=== PATIENT | male | born 1940 | race Asian ===

== ENCOUNTER 2016-04-20 09:50 | Inpatient (IN) | payer MEDICAID ==
[~2016-04-20] VITALS: Ht 162.6 cm; Wt 70.0 kg
[2016-04-20 09:57] VITALS: Ht 162.6 cm; Wt 70.0 kg
[2016-04-20 10:57] LABS: ALBUMIN 3.6 g/dl (3.3-4.9); CHLORIDE 99 mmol/L (97-110)
[2016-04-20 10:58] LABS: POTASSIUM 3.9 mmol/L (3.5-5.1); SODIUM 139 mmol/L (135-144)
[2016-04-20 11:00] LABS: ALKALINE PHOSPHATASE 60 IU/L (42-121); ANION GAP 14 (8-16); ASPARTATE AMINO TRANSFERASE 17 IU/L (15-46); BLOOD UREA NITROGEN 20 mg/dl (7-20); CARBON DIOXIDE 30 mmol/L (21-31); CREATININE 0.54 mg/dl (0.61-1.24); TOTAL PROTEIN 6.6 g/dl (6.1-8.1)
[2016-04-20 11:01] LABS: ALANINE AMINOTRANSFERASE 25 IU/L (13-69); CALCIUM 8.1 mg/dl (8.4-10.2); GLUCOSE 132 mg/dl (70-220); INR 1.12; PARTIAL THROMBOPLASTIN TIME 21.3 Sec (25.0-35.0); PROTIME 14.4 Sec (12.2-14.2); PT RATIO 1.1
[2016-04-20 11:11] LABS: ACETAMINOPHEN < 10.0 ug/ml (10.0-30.0); ETHANOL < 10.0 mg/dl; SALICYLATE < 1.0 mg/dl (5.0-30.0)
[2016-04-20 11:16] LABS: TROPONIN-I < 0.012 ng/ml (0.00-0.12)
--- NOTE | 2016-04-20 11:19 | RADRPT ---
PROCEDURE: CT Brain without contrast. CLINICAL INDICATION: Headaches. Neurologic deficit TECHNIQUE: A CT of the brain was performed on multidetector high-resolution CT scanner utilizing a xial sections from the skull base through the vertex without contrast. One or more of the following dose reduction techniques were used: Automated exposure control, Adjustment of the mA and/or kV acc ording to patient size, and/or use of iterative reconstruction technique. DOSE: None provided COMPARISON: None available FINDINGS: Left frontal scalp swelling. No depressed skull fracture identified. No acute intracranial hemorrhag e, significant mass effect or midline shift. Patchy hypoattenuation of the cerebral white matter is age indeterminate but may represent mild subacute to chronic microvascular ischemic changes. Focal h ypoattenuation in the right lentiform nucleus and left caudate. Atherosclerotic calcifications of th e cavernous segments of the internal carotid arteries are seen. Prominence of the cortical sulci and ventricles are related to mild cerebral volume loss. Opacified right ethmoid air cell. IMPRESSION: Left frontal scalp swelling. No acute intracranial hemorrhage or significant mass effect. Mild subacute to chronic microvascular disease and intracranial atherosclerosis. Focal hypoattenuation in the right lentiform nucleus and left caudate may be due to old lacunar infa rcts. RPTAT: AA .Isaias Beach MD, Date Time Electronically viewed and signed by .Isaias Beach MD, on 04/20/2016 11:19 .T/
[2016-04-20 11:39] LABS: BASOPHILS % 0.1 % (0.0-2.0); EOSINOPHILS % 0.1 % (0.0-7.0); HEMATOCRIT 12.7 % (42.0-52.0); LYMPHOCYTES # 0.4 10^3/ul (0.8-2.9); LYMPHOCYTES % 42.4 % (15.0-51.0); MEAN CORPUSCULAR HEMOGLOBIN 38.6 pg (29.0-33.0); MEAN CORPUSCULAR HGB CONC 35.5 g/dl (32.0-37.0); MEAN CORPUSCULAR VOLUME 108.7 fl (82.0-101.0); MEAN PLATELET VOLUME 8.6 fl (7.4-10.4); MONOCYTES % 1.5 % (0.0-11.0); NEUTROPHIL # 0.5 10^3/ul (1.6-7.5); NEUTROPHILS % 55.9 % (39.0-77.0); NUCLEATED RED BLOOD CELLS% 7.8 /100WBC (0.0-0.0); RED BLOOD COUNT 1.17 10^6/ul (4.70-6.10); UNCORRECTED WBC 0.9 10^3/ul (4.8-10.8)
[2016-04-20 11:50] LABS: HEMOGLOBIN 4.5 g/dl (14.0-18.0); PLATELET COUNT 28 10^3/UL (140-440)
[2016-04-20 11:51] LABS: CONDITION 1; LH ANALYZER COMMENTS 1; NUCLEATED RED BLOOD CELLS # 0.1 10^3/ul (0.0-0.0); WHITE BLOOD COUNT 0.9 10^3/ul (4.8-10.8)
[2016-04-20] MEDS ORDERED: SOD CHLORIDE 0.9% 250 ML IV ONE (11:58)
[2016-04-20] MEDS ORDERED: ACETAMINOPHEN 325 MG TAB PO PRN (13:00)
[2016-04-20] MEDS ORDERED: ONDANSETRON 4 MG INJ IV PRN ×2 (13:00→15:30)
--- NOTE | 2016-04-20 13:04 | ERA ---
ER Documentation Chief Complaint Date/Time DATE: 04/20/16 TIME: 13:01 Chief Complaint weakness bib ra from hotel not eating much, pale HPI Patient is a 75-year-old male with no medical problems who presents with weakness. He was brought in by ambulance. He lives in a hotel. He feels " weak all over". The patient denies bleeding or black or bloody stools. He has no fevers. He has no pain. He does say "I want to ". He does not currently have a primary doctor. Upon review of old medical records this is the patient's first visit to the emergency department. ROS All systems reviewed and are negative except as per history of present illness. Medications Home Meds No Active Prescriptions or Reported Meds Allergies Allergies: Coded Allergies: No Known Allergy (Unverified , 04/20/16) PMhx/Soc Medical and Surgical Hx: pt denies Medical Hx, pt denies Surgical Hx Smoking Status: Never smoker FmHx Family History: No diabetes Physical Exam Vitals Vital Signs Date Time Temp Pulse Resp B/P Pulse Ox O2 Delivery O2 Flow Rate FiO2 04/20/16 12:12 65 19 133/89 99 Nasal Cannula 2.0 04/20/16 10:15 Nasal Cannula 2 04/20/16 09:57 97.6 68 18 132/97 98 Physical Exam Const: Pale Head: Atraumatic Eyes: Normal Conjunctiva ENT: Normal External Ears, Nose and Mouth. Neck: Full range of motion..~ No meningismus. Resp: Clear to auscultation bilaterally Cardio: Regular rate and rhythm, no murmurs Abd: Soft, non tender, non distended. Normal bowel sounds Skin: Pale with bruising the left forehead and bilateral knees Back: No midline or flank tenderness Ext: No cyanosis, or edema Neur: Awake and alert Psych: Normal Mood and Affect Result Diagram: 04/20/16 1110 04/20/16 1020 Results 24 hrs Laboratory Tests Test 04/20/16 10:20 04/20/16 11:10 Acetaminophen Level < 10.0ug/ml Activated Partial Thromboplast Time 21.3Sec Alanine Aminotransferase (ALT/SGPT) 25IU/L Albumin 3.6g/dl Albumin/Globulin Ratio 1.20 Alkaline Phosphatase 60IU/L Anion Gap 14 Aspartate Amino Transf (AST/SGOT) 17IU/L Blood Urea Nitrogen 20mg/dl Calcium Level 8.1mg/dl Carbon Dioxide Level 30mmol/L Chloride Level 99mmol/L Creatinine 0.54mg/dl Direct Bilirubin 0.00mg/dl Ethyl Alcohol Level < 10.0mg/dl Globulin 3.00g/dl Glucose Level 132mg/dl INR International Normalized Ratio 1.12 Indirect Bilirubin 4.0mg/dl Lipase 77U/L Potassium Level 3.9mmol/L Prothrombin Time 14.4Sec Prothrombin Time Ratio 1.1 Salicylates Level < 1.0mg/dl Sodium Level 139mmol/L Total Bilirubin 4.0mg/dl Total Protein 6.6g/dl Troponin I < 0.012ng/ml Basophils # 0.010^3/ul Basophils % 0.1% Blood Morphology Comment Eosinophils # 0.010^3/ul Eosinophils % 0.1% Hematocrit 12.7% Hemoglobin 4.5g/dl Lymphocytes # 0.410^3/ul Lymphocytes % 42.4% Mean Corpuscular Hemoglobin 38.6pg Mean Corpuscular Hemoglobin Concent 35.5g/dl Mean Corpuscular Volume 108.7fl Mean Platelet Volume 8.6fl Monocytes # 0.010^3/ul Monocytes % 1.5% Neutrophils # 0.510^3/ul Neutrophils % 55.9% Nucleated Red Blood Cells # 0.110^3/ul Nucleated Red Blood Cells % 7.8/100WBC Platelet Count 2810^3/UL Red Blood Count 1.1710^6/ul Red Cell Distribution Width 20.0% White Blood Count 0.910^3/ul Current Medications Medications (Trade) Dose Ordered Sig/Pattie Route PRN Reason Start Time Stop Time Status Last Admin Dose Admin Sodium Chloride (NS) 250 ml @ 0 mls/hr Q0M ONCE IV 04/20/16 11:58 04/20/16 12:14 DC 04/20/16 12:49 Ondansetron HCl (Zofran Inj) 4 mg BRIDGE ORDER PRN IV NAUSEA AND/OR VOMITING 04/20/16 13:00 04/21/16 12:59 Acetaminophen (Tylenol Tab) 650 mg ER BRIDGE PRN PO MILD PAIN/FEVER 04/20/16 13:00 04/21/16 12:59 Procedures/MDM EKG read by me: Rate/Rhythm: Regular rate and rhythm at a rate of 63 Intervals: Normal Impression: No evidence of ischemia or arrhythmia CT head negative for intracranial hemorrhage per radiology. Patient is a 75-year-old male with weakness who presents with pancytopenia. He was found to be acutely anemic with a hemoglobin of 4.5 and he does appear pale. He will be transfused 4 units of packed red blood cells. The patient will need admission to a medical surgical bed. I spoke with Dr. Aguayo from the panel team for admission as he does not have a primary doctor and is never been admitted before. The patient will need a one-to-one sitter as he is depressed and feeling suicidal. The patient will also need further workup for his pancytopenia. Critical Care: Time: 35 minutes excluding all billable procedures. Treatments/Evaluations: Close monitoring and treatment of unstable vital signs, cardiorespiratory, and neurologic status, while maintaining tight balance of fluid, respiratory, and cardiac interventions. Departure Diagnosis: Primary Impression: Pancytopenia Additional Impression: Acute weakness Condition: ULYSSES Zavala MD Apr 20, 2016 13:04
--- NOTE | 2016-04-20 15:16 | HP ---
Date/Time of Note Date/Time of Note DATE: 04/20/16 TIME: 15:07 Assessment/Plan VTE Prophylaxis VTE Prophylaxis Intervention: SCD's VTE Contraindication Reason: thrombocytopenia Assessment/Plan Assessment/Plan 75 yo M managed for 1. Severe Pancytopenia 2. Rectal wall thickening concerning for malignancy 3. Depression + Suicidal ideation : Plan: * admit * suicidal and neutropenic precautions * PRBC transfusions * GI /Psych / heme-onc consultation * Social service consult * supportive care Prophylaxis: PPI / SCDs HPI/ROS Admit Date/Time Admit Date/Time 04/20/15 Hx of Present Illness Patient is a 75-year-old male who was brought in by ambulance for weakness over the last 2 days. He was noted to be severely anemic in the emergency room and depressed. He states he wants to because he has no home or work. He denies pain or black stools or BRB per rectum. he has never been diagnosed with cancer and has never had a colonoscopy. ROS 12 point review if systems was done and pertinent findings are as noted. Constitutional: poor po, No febrile, No nausea Eyes: no complaints ENT: no complaints Respiratory: no complaints Gastrointestinal: passing stool, No diarrhea, No pain Musculoskeletal: no complaints Neurologic: No focal-weakness, No headache, No seizure PMH/Family/Social Past Medical History Medical History: hypertension Past Surgical History Past Surgical Hx: no surgical history Family History Significant Family History: no pertinent family hx Social History * alone here, the rest of his family live in [facility], has no job or source of income Alcohol Use: none Smoking Status: Never smoker Drug Use: none Exam/Review of Systems Vital Signs Vitals Vital Signs Date Time Temp Pulse Resp B/P Pulse Ox O2 Delivery O2 Flow Rate FiO2 04/20/16 13:45 98.4 80 18 135/55 98 Nasal Cannula 2.0 Exam Exam Constitutional: alert, oriented (x4), other (elderly male), No distress Psych: depressed affect Head: atraumatic, normocephalic Eyes: PERRL, icteric (+) ENMT: mucosa pink and moist Neck: non-tender Respiratory: clear to auscultation, diminished breath sounds Cardiovascular: regular rate and rhythm, No murmurs/extra sounds Gastrointestinal: bowel sounds, non-tender, soft Musculoskeletal: nl extremities to inspection Extremities: No edema Neurological: nl mental status, nl speech, No focal weakness Skin: other (jaundice?) Labs Result Diagram: 04/20/16 1110 04/20/16 1020 Procedures Procedures Laboratory Tests Test 04/20/16 10:20 04/20/16 11:10 Acetaminophen Level < 10.0ug/ml Activated Partial Thromboplast Time 21.3Sec Alanine Aminotransferase (ALT/SGPT) 25IU/L Albumin 3.6g/dl Albumin/Globulin Ratio 1.20 Alkaline Phosphatase 60IU/L Anion Gap 14 Aspartate Amino Transf (AST/SGOT) 17IU/L Blood Urea Nitrogen 20mg/dl Calcium Level 8.1mg/dl Carbon Dioxide Level 30mmol/L Chloride Level 99mmol/L Creatinine 0.54mg/dl Direct Bilirubin 0.00mg/dl Ethyl Alcohol Level < 10.0mg/dl Globulin 3.00g/dl Glucose Level 132mg/dl INR International Normalized Ratio 1.12 Indirect Bilirubin 4.0mg/dl Lipase 77U/L Potassium Level 3.9mmol/L Prothrombin Time 14.4Sec Prothrombin Time Ratio 1.1 Salicylates Level < 1.0mg/dl Sodium Level 139mmol/L Total Bilirubin 4.0mg/dl Total Protein 6.6g/dl Troponin I < 0.012ng/ml Basophils # 0.010^3/ul Basophils % 0.1% Blood Morphology Comment Eosinophils # 0.010^3/ul Eosinophils % 0.1% Hematocrit 12.7% Hemoglobin 4.5g/dl Lymphocytes # 0.410^3/ul Lymphocytes % 42.4% Mean Corpuscular Hemoglobin 38.6pg Mean Corpuscular Hemoglobin Concent 35.5g/dl Mean Corpuscular Volume 108.7fl Mean Platelet Volume 8.6fl Monocytes # 0.010^3/ul Monocytes % 1.5% Neutrophils # 0.510^3/ul Neutrophils % 55.9% Nucleated Red Blood Cells # 0.110^3/ul Nucleated Red Blood Cells % 7.8/100WBC Platelet Count 2810^3/UL Red Blood Count 1.1710^6/ul Red Cell Distribution Width 20.0% White Blood Count 0.910^3/ul Current Medications Medications (Trade) Dose Ordered Sig/Pattie Route PRN Reason Start Time Stop Time Status Last Admin Dose Admin Sodium Chloride (NS) 250 ml @ 0 mls/hr Q0M ONCE IV 04/20/16 11:58 04/20/16 12:14 DC 04/20/16 12:49 0 MLS/HR Ondansetron HCl (Zofran Inj) 4 mg BRIDGE ORDER PRN IV NAUSEA AND/OR VOMITING 04/20/16 13:00 04/21/16 12:59 Acetaminophen (Tylenol Tab) 650 mg ER BRIDGE PRN PO MILD PAIN/FEVER 04/20/16 13:00 04/21/16 12:59 PROCEDURE: CT Brain without contrast. CLINICAL INDICATION: Headaches. Neurologic deficit TECHNIQUE: A CT of the brain was performed on multidetector high-resolution CT scanner utilizing axial sections from the skull base through the vertex without contrast. One or more of the following dose reduction techniques were used: Automated exposure control, Adjustment of the mA and/or kV according to patient size, and/or use of iterative reconstruction technique. DOSE: None provided COMPARISON: None available FINDINGS: Left frontal scalp swelling. No depressed skull fracture identified. No acute intracranial hemorrhage, significant mass effect or midline shift. Patchy hypoattenuation of the cerebral white matter is age indeterminate but may represent mild subacute to chronic microvascular ischemic changes. Focal hypoattenuation in the right lentiform nucleus and left caudate. Atherosclerotic calcifications of the cavernous segments of the internal carotid arteries are seen. Prominence of the cortical sulci and ventricles are related to mild cerebral volume loss. Opacified right ethmoid air cell. IMPRESSION: Left frontal scalp swelling. No acute intracranial hemorrhage or significant mass effect. Mild subacute to chronic microvascular disease and intracranial atherosclerosis. Focal hypoattenuation in the right lentiform nucleus and left caudate may be due to old lacunar infarcts. RPTAT: AA .Isaias Beach MD, MD Date Time Electronically viewed and signed by .Isaias Beach MD, on 04/20/2016 11:19 .T/ CC: ULYSSES CUELLAR MD, BOLATITO M. Apr 20, 2016 15:16
[2016-04-20] MEDS ORDERED: FUROSEMIDE 20 MG INJ IV ONE (15:30)
[2016-04-20 16:05] LABS: IRON 197 ug/dl (35-150)
[2016-04-20 16:14] LABS: TOTAL IRON BINDING CAPACITY 208 ug/dl (241-421)
[2016-04-20] MEDS: SOD CHLORIDE 0.9% 1,000 ML IV SCH ×2 (16:18→20:05)
--- NOTE | 2016-04-20 16:27 | RADRPT ---
Echocardiogram Report Patient Name: CHRISTINA SEXTON Gender: Male Date: 1940 Study Date: 20-Apr-2016 Raveler: Marguerite Aguirre RDCS Location: [facility] Ref. Physician: WALE LORENZO Quality: Adequate Procedures: Transthoracic echocardiogram with complete 2D, M-Mode, and doppler examination. Indications: severe anemia. 2D/M Mode Doppler Measurement Value Normal Ranges Measurement Value Normal Ranges LVIDd 2D 6.0 3.5 - 5.6 cm AV Peak Rigoberto 1.4 m/sec LVIDs 2D 3.2 2.1 - 4.1 cm AV Peak PG 8.0 mmHg FS 2D 45.6 % AI Peak PG 72.0 mmHg LVPWd 2D 1.3 0.6 - 1.1 cm AI Peak Rigoberto 4.3 m/sec IVSd 2D 1.0 0.6 - 1.1 cm AI PHT 418.0 msec IVS/LVPW 2D 0.8 LVOT Peak Rigoberto 1.2 m/sec AoR Diam 2D 3.6 2.0 - 3.7 cm LVOT Peak PG 6.0 mmHg LA/Ao 2D 1 0 - 1 MV E Peak Rigoberto 0.7 m/sec EDV 2D 212.0 cm3 MV A Peak Rigoberto 0.9 m/sec ESV 2D 34.0 cm3 MV E/A 0.7 LA Dimen 2D 3.6 2.3 - 4.0 cm MV Decel Time 141 msec MV E/A 0.7 TR Peak Rigoberto 3.3 m/sec TR Peak PG 43.0 mmHg RVSP 46.0 mmHg Findings Left Ventricle: Normal left ventricular systolic function. Mild asymmetric septal hypertrophy. Mild enlargement of left ventricle cavity. Ejection fraction is visually estimated at 60 %. Tissue Doppler/Mitral Doppler indices are consistent with impaired relaxation (Stage I diastolic dysfunction). Right Ventricle: Normal right ventricular size. Normal right ventricular systolic function. Left Atrium: The left atrium is normal in size. Right Atrium: The right atrium is normal in size. Mitral Valve: Mitral valve leaflets appear mildly thickened. Mild mitral annular calcification. Mild mitral valve regurgitation. Aortic Valve: No hemodynamically significant aortic stenosis by doppler. Aortic cusps appear mildly calcified. Mild to moderate aortic valve regurgitation. Tricuspid Valve: Estimated peak PA systolic pressure 46 mmHg. Tricuspid valve appears mildly thickened. There is moderate tricuspid regurgitation. Pulmonic Valve: Pulmonic valve not well visualized. Pericardium: Small pericardial effusion. Aorta: Normal aortic root. IVC: Normal size and normal respiratory collapse consistent with normal right atrial pressure. Conclusions 1.Normal left ventricular systolic function. Mild asymmetric septal hypertrophy. Mild enlargement of left ventricle cavity. Ejection fraction is visually estimated at 60 %. Tissue Doppler/Mitral Doppler indices are consistent with impaired relaxation (Stage I diastolic dysfunction). 2.Mitral valve leaflets appear mildly thickened. Mild mitral annular calcification. Mild mitral valve regurgitation. 3.No hemodynamically significant aortic stenosis by doppler. Aortic cusps appear mildly calcified. Mild to moderate aortic valve regurgitation. 4.Estimated peak PA systolic pressure 46 mmHg. Tricuspid valve appears mildly thickened. There is moderate tricuspid regurgitation. 5.Small pericardial effusion. Electronically Signed By: Dani Degroot 20-Apr-2016 16:26:17 -0800 Patient Name: CHRISTINA SEXTON Study Date: 20-Apr-2016 [id number]
[2016-04-20 17:12] LABS: FOLATE 5.3 ng/ml (2.8-20.0)
[2016-04-20 19:06] VITALS: TEMP 98.1
--- NOTE | 2016-04-20 19:30 | RADRPT ---
PROCEDURE: CT Abdomen and Pelvis without contrast. CLINICAL INDICATION: Abdominal pain and anemia. TECHNIQUE: Multiple contiguous axial CT images of the abdomen and pelvis were obtained without the administration of intravenous contrast. Coronal and sagittal reconstructions were also performed. CTDIvol (mGy): 15.23; Total Exam DLP (mGy-cm): 881.64. One or more of the following dose reduction techniques were utilized: - Automated exposure control. - Adjustment of the mA and/or kV according to patient size. - Use of iterative reconstruction technique. COMPARISON: None. FINDINGS: Limited imaging of the lower thorax demonstrates scattered scarring versus atelectatic change. The heart is enlarged. Trace pericardial fluid is present. Hypoattenuation of the intravascular compart ments of the heart is observed and compatible with the patient's history of anemia. The liver and spleen are homogeneous in density. The gallbladder is contracted. Cholelithiasis is present. The pancreas and adrenal glands are unremarkable. The kidneys are symmetric in size. There is a punctate stone within the interpolar region of the rig ht kidney. There are no ureteral stones. There is no hydronephrosis or abnormal perinephric inflamm ation. The abdominal aorta is normal in caliber. Atherosclerotic calcification is present. There is no per iaortic / retroperitoneal lymphadenopathy. The stomach and small and large intestines are unremarkable. The appendix is normal. There are no focal inflammatory changes of the mesentery. There is no mesenteric lymphadenopathy. There is no a scites. The bladder, prostate and seminal vesicles are unremarkable. There is focal smooth concentric wall t hickening of the midportion of the rectum. Very mild infiltration of the perirectal soft tissues is observed. Nonspecific presacral edema is present. There is no free pelvic fluid. There is no pelv ic sidewall or inguinal lymphadenopathy. Degenerative changes of the spine are present. Body wall soft tissues are unremarkable. IMPRESSION: Focal concentric wall thickening of the midportion of the rectum with very mild perirectal infiltrat ion and nonspecific presacral edema. Colonoscopy versus close interval imaging follow-up is recommen ded to exclude neoplasm. Cardiomegaly and trace pericardial fluid. Cholelithiasis. Nonobstructing right nephrolithiasis. RPTAT: HLST .Carol Silveira MD, MD Date Time Electronically viewed and signed by .Carol Silveira MD, MD on 04/20/2016 19:30 .T/
[2016-04-20 20:30] VITALS: BP 144/65; PULSE 60; RESP 16
[2016-04-20] MEDS: DOCUSATE SODIUM 100 MG CAP PO SCH (22:14)
[2016-04-20 23:25] LABS: CREATINE KINASE 30 IU/L (23-200)
[2016-04-20 23:36] LABS: CK-MB 0.39 ng/ml (0.0-2.4)
[2016-04-20 23:38] LABS: TROPONIN-I < 0.012 ng/ml (0.00-0.12)
[2016-04-21] VITALS (13 sets, daily range): BP systolic 125–161; BP diastolic 60–74; PULSE 54–58; RESP 16–18
[2016-04-21] MEDS: PANTOPRAZOLE 40 MG INJ IV SCH (05:45)
[2016-04-21] MEDS: SOD CHLORIDE 0.9% 1,000 ML IV SCH (08:10)
[2016-04-21 10:20] LABS: RED BLOOD COUNT 2.13 10^6/ul (4.70-6.10); WHITE BLOOD COUNT 0.7 10^3/ul (4.8-10.8)
[2016-04-21 10:23] LABS: HEMOGLOBIN 6.6 g/dl (14.0-18.0); MEAN CORPUSCULAR VOLUME 93.9 fl (82.0-101.0); PLATELET COUNT 34 10^3/UL (140-440); POTASSIUM 3.3 mmol/L (3.5-5.1); RED CELL DISTRIBUTION WIDTH 20.5 % (11.5-14.5)
[2016-04-21 10:24] LABS: MEAN PLATELET VOLUME 11.7 fl (7.4-10.4)
[2016-04-21 10:25] LABS: ALBUMIN/GLOBULIN RATIO 1.3; BILIRUBIN,INDIRECT 4.2 mg/dl (0-1.1); BILIRUBIN,TOTAL 4.2 mg/dl (0.2-1.3); CREATININE 0.52 mg/dl (0.61-1.24); TOTAL PROTEIN 5.3 g/dl (6.1-8.1)
[2016-04-21 10:26] LABS: CHOL/HDL RATIO 3.9 RATIO
[2016-04-21 10:58] LABS: CK-MB 0.34 ng/ml (0.0-2.4); TROPONIN-I < 0.010 ng/ml (0.00-0.12)
[2016-04-21 10:59] LABS: CREATINE KINASE 22 IU/L (23-200)
--- NOTE | 2016-04-21 11:10 | PN ---
Date/Time of Note Date/Time of Note DATE: 04/21/16 TIME: 11:07 Assessment/Plan VTE Prophylaxis VTE Prophylaxis Intervention: SCD's Lines/Catheters IV Catheter Type (from [facility]): Peripheral IV Urinary Cath still in place: No Assessment/Plan Assessment/Plan 1. Pancytopenia with severe anemia likely complicated by chronic GI bleed 2. Rectal wall thickening concerning for maliganancy 3. Suicidal ideation 4. Hypertension: suboptimal control 5. Low HDL PLan: 2 more units of packed red cell Oncology / GI consults Clear liquid diet in case he needs colonoscopy Psych eval Continue precautions Supportive care PROPHYLAXIS: SCDs / PPI IV Subjective 24 Hr Interval Summary Free Text/Dictation * still feels weak * states he wanted to because of his social issues * denies black stools Exam/Review of Systems Vital Signs Vitals Vital Signs Date Time Temp Pulse Resp B/P Pulse Ox O2 Delivery O2 Flow Rate FiO2 04/21/16 07:28 98.9 57 18 151/66 97 04/20/16 20:30 Room Air 04/20/16 13:45 2.0 Intake and Output 04/20/16 04/20/16 04/21/16 14:59 22:59 06:59 Intake Total 350 ml 650 ml 981 ml Output Total 220 ml 1300 ml 100 ml Balance 130 ml -650 ml 881 ml Exam Constitutional: alert, oriented (x4), other (elderly male), No distress Psych: depressed affect Head: atraumatic, normocephalic Eyes: PERRL, icteric (+) ENMT: mucosa pink and moist Neck: non-tender Respiratory: clear to auscultation, diminished breath sounds Cardiovascular: regular rate and rhythm, No murmurs/extra sounds Gastrointestinal: bowel sounds, non-tender, soft Musculoskeletal: nl extremities to inspection Extremities: No edema Neurological: nl mental status, nl speech, No focal weakness Skin: other (jaundice?) Results Result Diagram: 04/21/1614 04/21/16 0914 Results 24 hrs Laboratory Tests Test 04/20/16 11:10 04/20/16 23:10 04/21/16 09:14 Basophils # 0.0 Basophils % 0.1 Blood Morphology Comment Eosinophils # 0.0 Eosinophils % 0.1 Hematocrit 12.7 L 20.0 #L Hemoglobin 4.5 *L 6.6 #*L Lymphocytes # 0.4 L Lymphocytes % 42.4 Mean Corpuscular Hemoglobin 38.6 H 31.0 Mean Corpuscular Hemoglobin Concent 35.5 33.0 Mean Corpuscular Volume 108.7 H 93.9 Mean Platelet Volume 8.6 11.7 #H Monocytes # 0.0 L Monocytes % 1.5 Neutrophils # 0.5 L Neutrophils % 55.9 Nucleated Red Blood Cells # 0.1 H Nucleated Red Blood Cells % 7.8 H Platelet Count 28 *L 34 #L Red Blood Count 1.17 L 2.13 #L Red Cell Distribution Width 20.0 H 20.5 H White Blood Count 0.9 L 0.7 #L Creatine Kinase 30 22 L Creatine Kinase Index 1.3 1.5 Creatinine Kinase MB (Mass) 0.39 0.34 Troponin I < 0.012 < 0.010 Alanine Aminotransferase (ALT/SGPT) 17 Albumin 3.0 L Albumin/Globulin Ratio 1.30 Alkaline Phosphatase 47 Anion Gap 11 Aspartate Amino Transf (AST/SGOT) 14 L Blood Urea Nitrogen 16 Calcium Level 8.0 L Carbon Dioxide Level 30 Chloride Level 99 Cholesterol Level 98 L Cholesterol/HDL Ratio 3.9 Creatinine 0.52 L Differential Comment MANUAL DIFF Direct Bilirubin 0.00 Globulin 2.30 Glucose Level 117 HDL Cholesterol 25 L Indirect Bilirubin 4.2 H LDL Cholesterol, Calculated 63 Magnesium Level 2.0 Potassium Level 3.3 L Sodium Level 137 Thyroid Stimulating Hormone (TSH) Pending Total Bilirubin 4.2 H Total Protein 5.3 #L Triglycerides Level 48 Medications Medications Current Medications Docusate Sodium (Colace) 100 mg BID PO Last administered on 04/20/16 22:14; Admin Dose 100 MG; Start 04/20/16 at 21:00 Pantoprazole (Protonix Iv) 40 mg DAILY@06 IV Last administered on 04/21/16 05: 45; Admin Dose 40 MG; Start 04/21/16 at 06:00 Ondansetron HCl 4 mg 4 mg Q6H PRN IV NAUSEA AND/OR VOMITING; Start 04/20/16 at 15:30 Sodium Chloride (NS) 1,000 ml @ 60 mls/hr [id number] IV Last administered on 04/20 20:05; Admin Dose 60 MLS/HR; Start 04/20/16 at 15:30 Influenza Virus Vaccine 0.5 ml 0.5 ml ONCE ONCE IM* ; Start 04/22/16 at 09:00; Stop 04/22/16 at 09:01 Potassium Chloride (KCl 40 MEQ/250 ML NS) 250 ml @ 62.5 mls/hr ONCE ONCE IVPB ; Start 04/21/16 at 11:30; Stop 04/21/16 at 15:29 WALE LORENZO Apr 21, 2016 11:09
[2016-04-21] MEDS: HYDROCHLOROTHIAZIDE 25 MG TAB PO SCH (11:30)
[2016-04-21] MEDS ORDERED: POTASSIUM CHLORIDE 250 ML IVPB ONE ×2 (11:30)
--- NOTE | 2016-04-21 11:54 | CONS ---
Date/Time of Note Date/Time of Note DATE: 04/21/16 TIME: 11:44 Assessment/Plan Assessment/Plan Chief Complaint/Hosp Course SEVERE PANCYTOPENIA WITH NEUTROPENIA, MACROCYTIC ANEMIA- REQUIRING PRBC TRANSFUSION THROMBOCYTOPENIA WITHOUT EVIDENCE OF BLEEDING ASSOCIATED WITH INCREASED INDIRECT BILI, SUGGESTING INTRAVASCULAR HEMOLYSIS PLAN: PROCEED WITH PANCYTOPENIA W-UP REVIEW SMEAR HEMOLYSIS W-UP CT ABD BMBX MONITOR BLOOD COUNT CLOSELY OBSERVE FOR BLEEDING AND HEMOLYSIS TRANSFUSE IF HB FABIO THAN 8 Problems: Consultation Date/Type/Reason Admit Date/Time 04/20/15 Date of Consultation: Apr 21, 2016 Type of Consultation: hemeonc Reason for Consultation pancytopenia Referring Provider: WALE LORENZO Hx of Present Illness Patient is a 75-year-old male with no medical problems who presents with weakness. He was brought in by ambulance. He lives in a hotel. He feels " weak all over". The patient denies bleeding or black or bloody stools. He has no fevers. He has no pain. He does say "I want to ". He does not currently have a primary doctor. Upon review of old medical records this is the patient's first visit to the emergency department. he was noted to have severe pancytopenia with neutropenia and severe eanemia pt has been transfused with PRBC his medical w-up and treatment are in progress i was asked to provide hemeonc con javier ROS All systems reviewed and are negative except as per history of present illness. Medications Home Meds No Active Prescriptions or Reported Meds Allergies Allergies: Coded Allergies: No Known Allergy (Unverified , 04/20/16) PMhx/Soc Medical and Surgical Hx: pt denies Medical Hx, pt denies Surgical Hx Smoking Status: Never smoker FmHx Family History: No diabetes Social History Smoking Status: Never smoker Exam/Review of Systems Vital Signs Vitals Vital Signs Date Time Temp Pulse Resp B/P Pulse Ox O2 Delivery O2 Flow Rate FiO2 04/21/16 07:28 98.9 57 18 151/66 97 04/20/16 20:30 Room Air 04/20/16 13:45 2.0 Intake and Output 04/20/16 04/20/16 04/21/16 15:00 23:00 07:00 Intake Total 350 ml 650 ml 981 ml Output Total 220 ml 1300 ml 100 ml Balance 130 ml -650 ml 881 ml Exam Const: Pale Head: Atraumatic Eyes: Normal Conjunctiva ENT: Normal External Ears, Nose and Mouth. Neck: Full range of motion..~ No meningismus. Resp: Clear to auscultation bilaterally Cardio: Regular rate and rhythm, no murmurs Abd: Soft, non tender, non distended. Normal bowel sounds Skin: Pale with bruising the left forehead and bilateral knees Back: No midline or flank tenderness Ext: No cyanosis, or edema Neur: Awake and alert Psych: Normal Mood and Affect Results Result Diagram: 04/21/1691304/21/16913 Results 24 hrs Laboratory Tests Test 04/20/16 23:10 04/21/16 09:14 Creatine Kinase 30 22 L Creatine Kinase Index 1.3 1.5 Creatinine Kinase MB (Mass) 0.39 0.34 Troponin I < 0.012 < 0.010 Alanine Aminotransferase (ALT/SGPT) 17 Albumin 3.0 L Albumin/Globulin Ratio 1.30 Alkaline Phosphatase 47 Anion Gap 11 Aspartate Amino Transf (AST/SGOT) 14 L Blood Urea Nitrogen 16 Calcium Level 8.0 L Carbon Dioxide Level 30 Chloride Level 99 Cholesterol Level 98 L Cholesterol/HDL Ratio 3.9 Creatinine 0.52 L Differential Comment MANUAL DIFF Direct Bilirubin 0.00 Globulin 2.30 Glucose Level 117 HDL Cholesterol 25 L Hematocrit 20.0 #L Hemoglobin 6.6 #*L Hemoglobin A1c 7.6 H Indirect Bilirubin 4.2 H LDL Cholesterol, Calculated 63 Magnesium Level 2.0 Mean Corpuscular Hemoglobin 31.0 Mean Corpuscular Hemoglobin Concent 33.0 Mean Corpuscular Volume 93.9 Mean Platelet Volume 11.7 #H Platelet Count 34 #L Potassium Level 3.3 L Red Blood Count 2.13 #L Red Cell Distribution Width 20.5 H Sodium Level 137 Thyroid Stimulating Hormone (TSH) Pending Total Bilirubin 4.2 H Total Protein 5.3 #L Triglycerides Level 48 White Blood Count 0.7 #L Medications Medications Current Medications Docusate Sodium (Colace) 100 mg BID PO Last administered on 04/20/16 22:14; Admin Dose 100 MG; Start 04/20/16 at 21:00 Pantoprazole (Protonix Iv) 40 mg DAILY@06 IV Last administered on 04/21/16 05: 45; Admin Dose 40 MG; Start 04/21/16 at 06:00 Ondansetron HCl 4 mg 4 mg Q6H PRN IV NAUSEA AND/OR VOMITING; Start 04/20/16 at 15:30 Sodium Chloride (NS) 1,000 ml @ 60 mls/hr [id number] IV Last administered on 04/20t 20:05; Admin Dose 60 MLS/HR; Start 04/20/16 at 15:30 Influenza Virus Vaccine (Fluzone) 0.5 ml ONCE ONCE IM* ; Start 04/22/16 at 09:00 ; Stop 04/22/16 at 09:01 Hydrochlorothiazide 25 mg 25 mg DAILY PO ; Start 04/21/16 at 11:30 Potassium Chloride (KCl 40 MEQ/250 ML NS) 250 ml @ 62.5 mls/hr ONCE ONCE IVPB ; Start 04/21/16 at 11:30; Stop 04/21/16 at 15:29 THERESA KEYES MD Apr 21, 2016 11:54
[2016-04-21 11:56] LABS: LYMPHOCYTES # 0.4 10^3/ul (0.8-2.9); NEUTROPHIL # 0.3 10^3/ul (1.6-7.5)
[2016-04-21] MEDS ORDERED: BARIUM SULF 2% 450 ML BTL (BERRY SMOOTHIE) PO ONE (12:00)
[2016-04-21] MEDS ORDERED: IODIXANOL LOCM 100 ML BTL ONE (13:16)
[2016-04-21] MEDS ORDERED: SOD CHLORIDE 0.9% 100 ML ONE (13:16)
--- NOTE | 2016-04-21 13:18 | CONS ---
Date/Time of Note Date/Time of Note DATE: 04/21/16 TIME: 13:07 Assessment/Plan Assessment/Plan Additional Assessment/Plan Acute anemia * CT abdomen 04-20-16: Focal concentric wall thickening of the midportion of the rectum with very mild perirectal infiltration and nonspecific presacral edema. Colonoscopy versus close interval imaging follow-up is recommended to exclude neoplasm. * Stool OB 1 * Colonoscopy tomorrow * Monitor hemoglobin every 8 hours, transfuse 2 units for hemoglobin less then 7.5 Pancytopenia * HemeOnc following * Maintain neutropenic precautions Suicidal ideation * Sitter in room * Mental health evaluation in process Further recommendations depend on clinical course Consultation Date/Type/Reason Admit Date/Time 04/20/15 Type of Consultation: Gastroenterology Reason for Consultation Acute anemia Hx of Present Illness 75-year-old male presented to ED yesterday with complaints of generalized weakness. At bedside patient denies nausea, vomiting, abdominal pain, hematemesis, hematochezia, fever, chills, chest pain, and shortness of breath. Patient also denies previous episode and past medical history. Patient denies any medications prescribed or [id number]. Patient states that he has been feeling weak for the last few days and decided to come into the hospital. Per previous note in ED, patient voiced suicidal ideation. At bedside patient denies plan for suicide. Advised patient colonoscopy recommended secondary to findings on CT exam. CT states: Focal concentric wall thickening of the midportion of the rectum with very mild perirectal infiltration and nonspecific presacral edema. Colonoscopy versus close interval imaging follow-up is recommended to exclude neoplasm. Advised patient of risks/benefits/ alternatives to procedure and he is agreeable to proceed. Past Medical History Medical History: no pertinent history Past Surgical History Past Surgical Hx: no surgical history Social History Alcohol Use: none Smoking Status: Never smoker Exam/Review of Systems Vital Signs Vitals Vital Signs Date Time Temp Pulse Resp B/P Pulse Ox O2 Delivery O2 Flow Rate FiO2 04/21/16 12:31 98.6 51 18 135/66 98 04/20/16 20:30 Room Air 04/20/16 13:45 2.0 Intake and Output 04/20/16 04/20/16 04/21/16 15:00 23:00 07:00 Intake Total 350 ml 650 ml 981 ml Output Total 220 ml 1300 ml 100 ml Balance 130 ml -650 ml 881 ml Exam Constitutional: alert, oriented Psych: nl mood/affect, no complaints Head: normocephalic Eyes: EOMI, nl conjunctiva, nl lids ENMT: nl external ears & nose, nl lips & teeth, nl nasal mucosa & septum Respiratory: normal air movement Cardiovascular: regular rate and rhythm Gastrointestinal: non-tender, soft Musculoskeletal: nl extremities to inspection Neurological: DELIVER DRIVER II-XII intact Results Result Diagram: 04/21/1691304/21/16 0914 Results 24 hrs Laboratory Tests Test 04/20/16 23:10 04/21/16 09:14 Creatine Kinase 30 22 L Creatine Kinase Index 1.3 1.5 Creatinine Kinase MB (Mass) 0.39 0.34 Troponin I < 0.012 < 0.010 Alanine Aminotransferase (ALT/SGPT) 17 Albumin 3.0 L Albumin/Globulin Ratio 1.30 Alkaline Phosphatase 47 Anion Gap 11 Aspartate Amino Transf (AST/SGOT) 14 L Blood Urea Nitrogen 16 Calcium Level 8.0 L Carbon Dioxide Level 30 Chloride Level 99 Cholesterol Level 98 L Cholesterol/HDL Ratio 3.9 Creatinine 0.52 L Differential Comment MANUAL DIFF Direct Bilirubin 0.00 Globulin 2.30 Glucose Level 117 HDL Cholesterol 25 L Hematocrit 20.0 #L Hemoglobin 6.6 #*L Hemoglobin A1c 7.6 H Indirect Bilirubin 4.2 H LDL Cholesterol, Calculated 63 Lymphocytes # 0.4 L Lymphocytes % 56.0 H Magnesium Level 2.0 Mean Corpuscular Hemoglobin 31.0 Mean Corpuscular Hemoglobin Concent 33.0 Mean Corpuscular Volume 93.9 Mean Platelet Volume 11.7 #H Neutrophils # 0.3 L Neutrophils % 41.0 Platelet Count 34 #L Potassium Level 3.3 L Red Blood Count 2.13 #L Red Cell Distribution Width 20.5 H Sodium Level 137 Thyroid Stimulating Hormone (TSH) Pending Total Bilirubin 4.2 H Total Protein 5.3 #L Triglycerides Level 48 White Blood Count 0.7 #L Medications Medications Current Medications Docusate Sodium (Colace) 100 mg BID PO Last administered on 04/20/16 22:14; Admin Dose 100 MG; Start 04/20/16 at 21:00 Pantoprazole (Protonix Iv) 40 mg DAILY@06 IV Last administered on 04/21/16 05: 45; Admin Dose 40 MG; Start 04/21/16 at 06:00 Ondansetron HCl 4 mg 4 mg Q6H PRN IV NAUSEA AND/OR VOMITING; Start 04/20/16 at 15:30 Sodium Chloride (NS) 1,000 ml @ 60 mls/hr [id number] IV Last administered on 04/20t 20:05; Admin Dose 60 MLS/HR; Start 04/20/16 at 15:30 Influenza Virus Vaccine (Fluzone) 0.5 ml ONCE ONCE IM* ; Start 04/22/16 at 09:00 ; Stop 04/22/16 at 09:01 Hydrochlorothiazide 25 mg 25 mg DAILY PO ; Start 04/21/16 at 11:30 Potassium Chloride (KCl 40 MEQ/250 ML NS) 250 ml @ 62.5 mls/hr ONCE ONCE IVPB ; Start 04/21/16 at 11:30; Stop 04/21/16 at 15:29 Bisacodyl (Dulcolax) 10 mg ONCE ONCE PO ; Start 04/21/16 at 14:00; Stop at 14:01 Magnesium Citrate (Citroma) 300 ml ONCE ONCE PO ; Start 04/21/16 at 15:00; Stop 04/21/16 at 15:01 Polyethylene Glycol (Miralax) 119 gm ONCE ONCE PO ; Start 04/21/16 at 16:00; Stop 04/21/16 at 16:01 YANE WEEKS MD Apr 21, 2016 13:17
[2016-04-21] MEDS: DOCUSATE SODIUM 100 MG CAP PO SCH ×2 (13:53→21:06)
[2016-04-21] MEDS ORDERED: BISACODYL (EC) 5 MG TAB PO ONE ×2 (14:00→18:00)
[2016-04-21] MEDS ORDERED: MAGNESIUM CITRATE 300 ML BTL PO ONE (15:00)
--- NOTE | 2016-04-21 15:56 | RADRPT ---
PROCEDURE: CT Chest, Abdomen and Pelvis with contrast. CLINICAL INDICATION: Cough. Abdominal and pelvic pain. Staging. TECHNIQUE: CT scan of the chest, abdomen, and pelvis with intravenous contrast was performed with helical axial sections. The patient was scanned during intravenous injection of 100 ml of Visipaque 320 intravenous contrast. 2-D coronal reformatted images were obtained from the axial source image s. Total exam DLP is 1074.59 mGy-cm. CTDIvol is 13.61 MGy. One or more of the following dose redu ction techniques were used: Automated exposure control, adjustment of the mA and/or kV according to patient size, use of iterative reconstruction technique. COMPARISON: Noncontrast CT scan of the abdomen and pelvis dated 04/20/2016. FINDINGS: CT chest: There is mild linear atelectasis at the lung bases posteriorly. The lungs are otherwise clear with no other airspace or interstitial disease. There is no pulmonary nodule or mass lesion. There is no mediastinal or hilar lymphadenopathy or mass. Completely calcified small lymph nodes ar e present in the subcarinal region and left hilar region from previous granulomatous disease. The thoracic aorta is not dilated. There is no pleural effusion. There is a very small pericardial effusion. The heart is enlarged. CT abdomen: The liver is normal in size and attenuation. There is no focal hepatic lesion. The gallbladder is contracted and there are probable gallstones in the gallbladder. There is no lyndsay dence of cholecystitis. The bile ducts are normal. There is a small benign cyst superiorly in the spleen measuring 1.2 cm. The pancreas is normal with no mass or evidence of pancreatitis. Both adrenals are normal with no enlargement or mass. Both kidneys demonstrate normal contrast enhancement. There is no solid renal mass or hydronephrosis. There are benign left renal cysts with the largest measuring 2.2 cm. There are small nonobstructing right renal calculi as seen previously. There is n o other urinary tract calculus. The abdominal aorta is not dilated. There is calcification in the aorta consistent with atheroscler osis. 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 The right inferior vena cava extends from the rig ht common iliac vein to the right atrium. There is no retroperitoneal lymphadenopathy or mass. The bowel and mesentery are normal. There is no free fluid or free gas. CT pelvis: There is no pelvic lymphadenopathy or mass. The bladder and distal ureters are normal. The periappendiceal region is unremarkable with no evidence of appendicitis. The bowel and mesentery are normal. There is no free fluid or free gas. Osseous structures: There is no fracture. There is no lytic or blastic lesion. There are severe degenerative changes o f the lumbar spine with multilevel stenosis. There is severe central stenosis at L5-S1. IMPRESSION: 1. Mild atelectasis at the lung bases posteriorly. 2. Completely calcified small lymph nodes in the subcarinal region and left hilar region from previ ous granulomatous disease. 3. Very small pericardial effusion. 4. Cardiomegaly. 5. Contracted gallbladder with probable gallstones in the gallbladder. 6. Small benign cyst superiorly in the spleen measuring 1.2 cm. 7. Benign left renal cysts. 8. Small nonobstructing right renal calculi. 9. Atherosclerosis. 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 11. 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 12. No evidence of neoplasm. RPTAT: QQ .Rohit Shaikh MD, Date Time Electronically viewed and signed by .Rohit Shaikh MD, on 04/21/2016 15:56 .R/
[2016-04-21] MEDS ORDERED: POLYETHYLENE GLYCOL 3350 119 GM POWDER PO ONE ×2 (16:00→18:00)
[2016-04-21 17:43] LABS: RETICULOCYTE COUNT % 0.7 % (0.5-1.5)
[2016-04-21 17:46] LABS: LACTATE DEHYDROGENASE 1223 IU/L (313-618)
[2016-04-21 17:47] LABS: URIC ACID 3.9 mg/dl (3.1-7.9)
[2016-04-21 18:10] LABS: THYROID STIMULATING HORMONE 0.493 MIU/L (0.465-4.680)
[2016-04-21 18:26] LABS: CARCINOEMBRYONIC ANTIGEN 0.5 ng/ml (0.0-5.0)
[2016-04-21 18:43] LABS: TOTAL IRON BINDING CAPACITY 193 ug/dl (241-421)
[2016-04-21 20:11] LABS: HEMATOCRIT 22.7 % (42.0-52.0); HEMOGLOBIN 7.9 g/dl (14.0-18.0)
[2016-04-21 20:49] LABS: IRON 166 ug/dl (35-150)
[2016-04-22] VITALS (13 sets, daily range): BP systolic 102–188; BP diastolic 52–88; PULSE 56–71; RESP 16–20
[2016-04-22 00:11] LABS: BENZODIAZEPINES Negative (NEGATIVE)
[2016-04-22 00:12] LABS: BARBITURATES Negative (NEGATIVE); OPIATES Negative (NEGATIVE)
[2016-04-22] MEDS: SOD CHLORIDE 0.9% 1,000 ML IV SCH ×2 (00:50→04:01)
[2016-04-22 00:51] LABS: CANNABINOIDS Negative (NEGATIVE); COCAINE Negative (NEGATIVE)
[2016-04-22] MEDS: PANTOPRAZOLE 40 MG INJ IV SCH (06:15)
[2016-04-22] MEDS: DOCUSATE SODIUM 100 MG CAP PO SCH ×2 (08:06→22:13)
[2016-04-22] MEDS: HYDROCHLOROTHIAZIDE 25 MG TAB PO SCH (08:06)
[2016-04-22 08:23] LABS: ADD SCAN DIFF NO
[2016-04-22 08:26] LABS: ABNORMAL IP MESSAGE 1; HEMATOCRIT 25.9 % (42.0-52.0); HEMOGLOBIN 8.9 g/dl (14.0-18.0); MEAN CORPUSCULAR HEMOGLOBIN 31.4 pg (29.0-33.0); MEAN CORPUSCULAR HGB CONC 34.4 g/dl (32.0-37.0); MEAN CORPUSCULAR VOLUME 91.5 fl (82.0-101.0); MEAN PLATELET VOLUME 12.9 fl (7.4-10.4); RED BLOOD COUNT 2.83 10^6/ul (4.70-6.10); RED CELL DISTRIBUTION WIDTH 17.5 % (11.5-14.5)
[2016-04-22 08:52] LABS: ALBUMIN 3.1 g/dl (3.3-4.9); POTASSIUM 4.2 mmol/L (3.5-5.1)
[2016-04-22 08:54] LABS: CREATININE 0.56 mg/dl (0.61-1.24)
[2016-04-22 08:55] LABS: ALBUMIN/GLOBULIN RATIO 1.29; CALCIUM 7.8 mg/dl (8.4-10.2); TOTAL PROTEIN 5.5 g/dl (6.1-8.1)
[2016-04-22] MEDS ORDERED: INFLUENZA VIRUS VACCINE 0.5 ML (DISPENSING) IM* ONE (09:00)
[2016-04-22 09:06] LABS: PLATELET COUNT 20 10^3/UL (140-415)
--- NOTE | 2016-04-22 09:46 | CONS ---
Date/Time of Note Date/Time of Note DATE: 04/22/16 TIME: 09:43 Assessment/Plan Assessment/Plan Additional Assessment/Plan Acute anemia * CT abdomen 04-20-16: Focal concentric wall thickening of the midportion of the rectum with very mild perirectal infiltration and nonspecific presacral edema. Colonoscopy versus close interval imaging follow-up is recommended to exclude neoplasm. * Stool OB 1 * Colonoscopy when clinically stable * Monitor hemoglobin every 8 hours, transfuse 2 units for hemoglobin less then 7.5 Pancytopenia * HemeOnc following * Maintain neutropenic precautions Suicidal ideation * Sitter in room * Mental health evaluation in process Further recommendations depend on clinical course Consultation Date/Type/Reason Admit Date/Time Apr 20, 2016 at 12:32 Initial Consult Date 04/21/16 Type of Consultation: Gastroenterology Referring Provider: WALE LORENZO 24 HR Interval Summary Free Text/Dictation Hemoglobin stable status post 4 units PRBC WBC trending upward Thrombocytopenia worsening with platelets at 20 Exam/Review of Systems Vital Signs Vitals Vital Signs Date Time Temp Pulse Resp B/P Pulse Ox O2 Delivery O2 Flow Rate FiO2 04/22/16 07:50 98.0 54 18 160/72 96 04/21/16 15:30 Room Air 04/20/16 13:45 2.0 Intake and Output 04/21/16 04/21/16 04/22/16 15:00 23:00 07:00 Intake Total 1630 ml 970 ml Output Total 500 ml 400 ml Balance 1130 ml 570 ml Exam Constitutional: alert, oriented Psych: nl mood/affect, no complaints Head: normocephalic Eyes: EOMI, nl conjunctiva, nl lids, sclera icteric ENMT: nl external ears & nose, nl lips & teeth, nl nasal mucosa & septum Respiratory: normal air movement Cardiovascular: regular rate and rhythm Gastrointestinal: non-tender, soft Musculoskeletal: nl extremities to inspection Neurological: LEAD PRINCIPAL TECHNICAL ARCHITECT II-XII intact Eyes: icteric Results Result Diagram: 04/22/1643 04/22/16 0743 Results 24 hrs Laboratory Tests Test 04/21/16 16:50 04/21/16 19:55 04/21/16 23:00 04/22/16 07:43 Absolute Reticulocyte Count 0.016 L Carcinoembryonic Antigen 0.5 Erythrocyte Sedimentation Rate 5 Ferritin 477.0 H Folate Pending HIV (1&2) Antibody NEGATIVE Iron Level 166 H Lactate Dehydrogenase 1223 H Percent Iron Saturation 86 H Percent Reticulocyte Count 0.7 Rapid Plasma Reagin NONREACTIVE Thyroid Stimulating Hormone (TSH) 1.090 Total Iron Binding Capacity 193 L Uric Acid 3.9 Vitamin B12 Level < 159 L Hematocrit 22.7 L 25.9 L Hemoglobin 7.9 L 8.9 L Urine Amphetamines Screen Negative Urine Barbiturates Negative Urine Benzodiazepines Screen Negative Urine Cannabinoids Negative Urine Cocaine Screen Negative Urine Opiates Screen Negative Alanine Aminotransferase (ALT/SGPT) 22 Albumin 3.1 L Albumin/Globulin Ratio 1.29 Alkaline Phosphatase 50 Anion Gap 10 Aspartate Amino Transf (AST/SGOT) 16 Basophils # Basophils % Blood Urea Nitrogen 16 Calcium Level 7.8 L Carbon Dioxide Level 30 Chloride Level 103 Creatinine 0.56 L Direct Bilirubin 0.00 Eosinophils # Eosinophils % Globulin 2.40 Glucose Level 97 Indirect Bilirubin 6.0 H Lymphocytes # Lymphocytes % Mean Corpuscular Hemoglobin 31.4 Mean Corpuscular Hemoglobin Concent 34.4 Mean Corpuscular Volume 91.5 Mean Platelet Volume 12.9 H Monocytes # Monocytes % Neutrophils # Neutrophils % Platelet Count 20 *L Potassium Level 4.2 Red Blood Count 2.83 #L Red Cell Distribution Width 17.5 H Sodium Level 139 Total Bilirubin 6.0 H Total Protein 5.5 L White Blood Count 0.9 #L Medications Medications Current Medications Docusate Sodium (Colace) 100 mg BID PO Last administered on 04/22/16 08:06; Admin Dose 100 MG; Start 04/20/16 at 21:00 Pantoprazole (Protonix Iv) 40 mg DAILY@06 IV Last administered on 04/22/16 06: 15; Admin Dose 40 MG; Start 04/21/16 at 06:00 Ondansetron HCl 4 mg 4 mg Q6H PRN IV NAUSEA AND/OR VOMITING; Start 04/20/16 at 15:30 Sodium Chloride (NS) 1,000 ml @ 60 mls/hr [id number] IV Last administered on 04/22 04:01; Admin Dose 60 MLS/HR; Start 04/20/16 at 15:30 Hydrochlorothiazide (Hydrochlorothiazide) 25 mg DAILY PO Last administered on 08:06; Admin Dose 25 MG; Start 04/21/16 at 11:30 ERASTO NICOLE Apr 22, 2016 09:46
[2016-04-22 11:17] LABS: HAAIG REFLEX REFLEX FILED
[2016-04-22 11:22] LABS: LYMPHOCYTES # 0.6 10^3/ul (0.8-2.9); NEUTROPHIL # 0.2 10^3/ul (1.6-7.5)
[2016-04-22 13:01] LABS: HEPATITIS B CORE ANTIBODY REACTIVE (NEGATIVE)
[2016-04-22 14:13] LABS: WHITE BLOOD COUNT 0.9 10^3/ul (4.8-10.8)
[2016-04-22] MEDS ORDERED: DIPHENHYDRAMINE 50 MG INJ ONE (15:06)
[2016-04-22] MEDS ORDERED: FENTAnyl 50 MCG/ML VIAL ONE (15:06)
[2016-04-22] MEDS ORDERED: MIDAZOLAM 1 MG/ML 2 ML INJ ONE (15:06)
[2016-04-22] MEDS ORDERED: LIDOCAINE 1% (MDV) 20 ML INJ ONE (15:06)
[2016-04-22 15:59] LABS: FOLATE 4.2 ng/ml (2.8-20.0)
--- NOTE | 2016-04-22 16:25 | PN ---
Date/Time of Note Date/Time of Note DATE: 04/22/16 TIME: 16:11 Assessment/Plan VTE Prophylaxis VTE Prophylaxis Intervention: SCD's VTE Contraindication Reason: thrombocytopenia Lines/Catheters IV Catheter Type (from [facility]): Peripheral IV Urinary Cath still in place: No Assessment/Plan Assessment/Plan 75 yo M managed for 1. Severe Pancytopenia with lymphocytosis 2. Rectal wall thickening: likely 2/[address] + contrast 3. Situational Depression + Suicidal ideation : improved 4. Hypertension: suboptimal control 5. Low HDL 6. Asymptomatic bradycardia Plan: * will d/c sitter and suicide precautions * appreciate hematology input and interventions / planned for BMBx today * appreciate GI review / planned for colonoscopy when leucopenia and thrombocytopenia improves * Continue Leukopenic precautions * Add 2nd HTNsive agent / Avoid AV ирина blocking agents / Get 2D echo * Fish oil for dyslipidemia * Supportive care PROPHYLAXIS: SCDs / PPI IV Subjective 24 Hr Interval Summary Free Text/Dictation Spoke with patient with sitter present. Patient had spoken with SW and CM earlier. Patient denies further suicidal ideation. Patient reports that he wanted to before because she had no income or social support, he states he wanted to , but he didn't want to kill himself, and did not know how he was going to . he states that now that the SW is going to try to help him, he does not want to anymore and he does not want to speak to a psychiatrist anymore. 2. Reviewed CT with IV contrast with radiology Constitutional: improved, no complaints Neurologic: No confusion Psychological: No suicidal Exam/Review of Systems Vital Signs Vitals Vital Signs Date Time Temp Pulse Resp B/P Pulse Ox O2 Delivery O2 Flow Rate FiO2 04/22/16 07:50 98.0 54 18 160/72 96 04/21/16 15:30 Room Air 04/20/16 13:45 2.0 Intake and Output 04/21/16 04/21/16 04/22/16 15:00 23:00 07:00 Intake Total 1630 ml 970 ml Output Total 500 ml 400 ml Balance 1130 ml 570 ml Exam Constitutional: alert, oriented (x4), other (elderly male), No distress Psych: nl mood/affect, No anxiety Head: atraumatic, normocephalic Eyes: PERRL, icteric (+) ENMT: mucosa pink and moist Neck: non-tender Respiratory: clear to auscultation, diminished breath sounds Cardiovascular: regular rate and rhythm, No murmurs/extra sounds Gastrointestinal: bowel sounds, non-tender, soft Musculoskeletal: nl extremities to inspection Extremities: No edema Neurological: nl mental status, nl speech, No focal weakness Skin: other (jaundice?) Results Result Diagram: 04/22/16 0743 04/22/16 0743 Results 24 hrs Laboratory Tests Test 04/21/16 16:50 04/21/16 19:55 04/21/16 23:00 04/22/16 07:43 Absolute Reticulocyte Count 0.016 L Carcinoembryonic Antigen 0.5 Erythrocyte Sedimentation Rate 5 Ferritin 477.0 H Folate 4.2 HIV (1&2) Antibody NEGATIVE Iron Level 166 H Lactate Dehydrogenase 1223 H Percent Iron Saturation 86 H Percent Reticulocyte Count 0.7 Rapid Plasma Reagin NONREACTIVE Thyroid Stimulating Hormone (TSH) 1.090 Total Iron Binding Capacity 193 L Uric Acid 3.9 Vitamin B12 Level < 159 L Hematocrit 22.7 L 25.9 L Hemoglobin 7.9 L 8.9 L Urine Amphetamines Screen Negative Urine Barbiturates Negative Urine Benzodiazepines Screen Negative Urine Cannabinoids Negative Urine Cocaine Screen Negative Urine Opiates Screen Negative Alanine Aminotransferase (ALT/SGPT) 22 Albumin 3.1 L Albumin/Globulin Ratio 1.29 Alkaline Phosphatase 50 Anion Gap 10 Aspartate Amino Transf (AST/SGOT) 16 Basophils # Basophils % Blood Urea Nitrogen 16 Calcium Level 7.8 L Carbon Dioxide Level 30 Chloride Level 103 Creatinine 0.56 L Differential Comment MANUAL DIFF Direct Bilirubin 0.00 Eosinophils # Eosinophils % Globulin 2.40 Glucose Level 97 Hepatitis B Core Total Antibody REACTIVE H Hepatitis B Surface Antigen NEGATIVE Hepatitis C Antibody NEGATIVE Indirect Bilirubin 6.0 H Lymphocytes # 0.6 L Lymphocytes % 70.0 H Mean Corpuscular Hemoglobin 31.4 Mean Corpuscular Hemoglobin Concent 34.4 Mean Corpuscular Volume 91.5 Mean Platelet Volume 12.9 H Monocytes # 0.0 L Monocytes % 2.0 Neutrophils # 0.2 L Neutrophils % 25.0 L Platelet Count 20 *L Potassium Level 4.2 Red Blood Count 2.83 #L Red Cell Distribution Width 17.5 H Sodium Level 139 Total Bilirubin 6.0 H Total Protein 5.5 L White Blood Count 0.9 #L Medications Medications Current Medications Docusate Sodium (Colace) 100 mg BID PO Last administered on 04/22/16 08:06; Admin Dose 100 MG; Start 04/20/16 at 21:00 Pantoprazole (Protonix Iv) 40 mg DAILY@06 IV Last administered on 04/22/16 06: 15; Admin Dose 40 MG; Start 04/21/16 at 06:00 Ondansetron HCl 4 mg 4 mg Q6H PRN IV NAUSEA AND/OR VOMITING; Start 04/20/16 at 15:30 Sodium Chloride (NS) 1,000 ml @ 60 mls/hr [id number] IV Last administered on 04/22 04:01; Admin Dose 60 MLS/HR; Start 04/20/16 at 15:30 Hydrochlorothiazide (Hydrochlorothiazide) 25 mg DAILY PO Last administered on 08:06; Admin Dose 25 MG; Start 04/21/16 at 11:30 Procedures Procedures PROCEDURE: CT Chest, Abdomen and Pelvis with contrast. CLINICAL INDICATION: Cough. Abdominal and pelvic pain. Staging. TECHNIQUE: CT scan of the chest, abdomen, and pelvis with intravenous contrast was performed with helical axial sections. The patient was scanned during intravenous injection of 100 ml of Visipaque 320 intravenous contrast. 2 -D coronal reformatted images were obtained from the axial source images. Total exam DLP is 1074.59 mGy-cm. CTDIvol is 13.61 MGy. One or more of the following dose reduction techniques were used: Automated exposure control, adjustment of the mA and/or kV according to patient size, use of iterative reconstruction technique. COMPARISON: Noncontrast CT scan of the abdomen and pelvis dated 04/20/2016. FINDINGS: CT chest: There is mild linear atelectasis at the lung bases posteriorly. The lungs are otherwise clear with no other airspace or interstitial disease. There is no pulmonary nodule or mass lesion. There is no mediastinal or hilar lymphadenopathy or mass. Completely calcified small lymph nodes are present in the subcarinal region and left hilar region from previous granulomatous disease. The thoracic aorta is not dilated. There is no pleural effusion. There is a very small pericardial effusion. The heart is enlarged. CT abdomen: The liver is normal in size and attenuation. There is no focal hepatic lesion. The gallbladder is contracted and there are probable gallstones in the gallbladder. There is no evidence of cholecystitis. The bile ducts are normal. There is a small benign cyst superiorly in the spleen measuring 1.2 cm. The pancreas is normal with no mass or evidence of pancreatitis. Both adrenals are normal with no enlargement or mass. Both kidneys demonstrate normal contrast enhancement. There is no solid renal mass or hydronephrosis. There are benign left renal cysts with the largest measuring 2.2 cm. There are small nonobstructing right renal calculi as seen previously. There is no other urinary tract calculus. The abdominal aorta is not dilated. There is calcification in the aorta consistent with atherosclerosis. 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 The right inferior vena cava extends from the right common iliac vein to the right atrium. There is no retroperitoneal lymphadenopathy or mass. The bowel and mesentery are normal. There is no free fluid or free gas. CT pelvis: There is no pelvic lymphadenopathy or mass. The bladder and distal ureters are normal. The periappendiceal region is unremarkable with no evidence of appendicitis. The bowel and mesentery are normal. There is no free fluid or free gas. Osseous structures: There is no fracture. There is no lytic or blastic lesion. There are severe degenerative changes of the lumbar spine with multilevel stenosis. There is severe central stenosis at L5-S1. IMPRESSION: 1. Mild atelectasis at the lung bases posteriorly. 2. Completely calcified small lymph nodes in the subcarinal region and left hilar region from previous granulomatous disease. 3. Very small pericardial effusion. 4. Cardiomegaly. 5. Contracted gallbladder with probable gallstones in the gallbladder. 6. Small benign cyst superiorly in the spleen measuring 1.2 cm. 7. Benign left renal cysts. 8. Small nonobstructing right renal calculi. 9. Atherosclerosis. 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 11. 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 12. No evidence of neoplasm. RPTAT: QQ .Rohit Shaikh MD, MD Date Time Electronically viewed and signed by .Rohit Shaikh MD, on 04/21/2016 15:56 .R/ CC: THERESA KEYES MD, [place] M. Apr 22, 2016 16:24
--- NOTE | 2016-04-22 16:35 | RADRPT ---
PROCEDURE: CT guided bone marrow aspiration and left iliac bone biopsy. CLINICAL INDICATION: History of pancytopenia. TECHNIQUE: Informed consent was obtained. The procedure, risks, benefits, complications and alternatives were e xplained to the patient. Risks including bleeding and infection were explained. The patient understo od and was willing to proceed. A procedural pause was performed. The patient's name, date of , and procedure to be performed were verified. One or more of the following dose reduction techni ques were used: Automated exposure control, adjustment of the mA and/or kV according to patient size , use of iterative reconstruction technique. Using local anesthetic, sterile technique and CT guidance, an 11-gauge On Control bone biopsy needle was advanced into the left iliac bone via a posterior approach. Bone marrow aspiration was perform ed yielding approximately 10 ml. The bone biopsy needle was then advanced an additional 4 cm using the power drill device and tissue was obtained. Adequate tissue was obtained according to the patho logist present during the procedure. The needle was removed. A postprocedural scan was performed. A dressing was applied. The patient tolerated procedure well. COMPARISON: None. FINDINGS: Initial images demonstrate the tip of the needle at the posterior medial margin of the left iliac maria m ne. The needle was adjusted laterally. Subsequent images demonstrate the needle within the bone. Post biopsy images demonstrate no immediate complication. IMPRESSION: 1. Successful CT guided bone marrow aspiration and biopsy. RPTAT: QQ .Rohit Shaikh MD, Date Time Electronically viewed and signed by .Rohit Shaikh MD, MD on 04/22/2016 16:35 .R/
[2016-04-22] MEDS ORDERED: CYANOCOBALAMIN 1000 MCG INJ IM ONE (17:00)
--- NOTE | 2016-04-22 21:55 | CONS ---
Date/Time of Note Date/Time of Note DATE: 04/22/16 TIME: 21:48 Assessment/Plan Assessment/Plan Chief Complaint/Hosp Course SEVERE PANCYTOPENIA WITH NEUTROPENIA, MACROCYTIC ANEMIA- REQUIRING PRBC TRANSFUSION- 6U THROMBOCYTOPENIA WITHOUT EVIDENCE OF BLEEDING ASSOCIATED WITH INCREASED INDIRECT BILI, SUGGESTING INTRAVASCULAR HEMOLYSIS PLAN: COMPLETE PANCYTOPENIA W-UP SMEAR- NEG HEMOLYSIS W-UP CT ABD- NEG POST BMBX- AWAIT RESULT MONITOR BLOOD COUNT CLOSELY OBSERVE FOR BLEEDING AND HEMOLYSIS TRANSFUSE IF HB FAIBO THAN 8 AND PLATELET LESS THAN 16616 Maintain neutropenic precautions PROFOUND B12 DEFICIENCY CAN EXPLAIN PANCYTOPENIA START B12 Suicidal ideation * Sitter in room * Mental health evaluation in process Problems: Consultation Date/Type/Reason Admit Date/Time Apr 20, 2016 at 12:32 Initial Consult Date 04/21/16 Type of Consultation: HEMEONC Referring Provider: WALE LORENZO 24 HR Interval Summary Free Text/Dictation ALL NOTED NO NEW EVENTS SMEAR- NO BLASTS, DECREASED ALL CELLS NOTED NO BLEEDING POST 6 U PRBC AND 1 U PLATELET POST BMBX Exam/Review of Systems Vital Signs Vitals Vital Signs Date Time Temp Pulse Resp B/P Pulse Ox O2 Delivery O2 Flow Rate FiO2 04/22/16 20:58 98.1 62 16 163/73 98 04/22/16 18:00 Nasal Cannula 04/22/16 16:30 2.0 Intake and Output 04/21/16 04/21/16 04/22/16 15:00 23:00 07:00 Intake Total 1630 ml 970 ml Output Total 500 ml 400 ml Balance 1130 ml 570 ml Exam Constitutional: alert, oriented (x4), other (elderly male), No distress Psych: nl mood/affect, No anxiety Head: atraumatic, normocephalic Eyes: PERRL, icteric (+) ENMT: mucosa pink and moist Neck: non-tender Respiratory: clear to auscultation, diminished breath sounds Cardiovascular: regular rate and rhythm, No murmurs/extra sounds Gastrointestinal: bowel sounds, non-tender, soft Musculoskeletal: nl extremities to inspection Extremities: No edema Neurological: nl mental status, nl speech, No focal weakness Skin: other (jaundice?) Results Result Diagram: 04/22/16 0743 04/22/16 0743 Results 24 hrs Laboratory Tests Test 04/21/16 23:00 04/22/16 07:43 Urine Amphetamines Screen Negative Urine Barbiturates Negative Urine Benzodiazepines Screen Negative Urine Cannabinoids Negative Urine Cocaine Screen Negative Urine Opiates Screen Negative Alanine Aminotransferase (ALT/SGPT) 22 Albumin 3.1 L Albumin/Globulin Ratio 1.29 Alkaline Phosphatase 50 Anion Gap 10 Aspartate Amino Transf (AST/SGOT) 16 Basophils # Basophils % Blood Urea Nitrogen 16 Calcium Level 7.8 L Carbon Dioxide Level 30 Chloride Level 103 Creatinine 0.56 L Differential Comment MANUAL DIFF Direct Bilirubin 0.00 Eosinophils # Eosinophils % Globulin 2.40 Glucose Level 97 Hematocrit 25.9 L Hemoglobin 8.9 L Hepatitis B Core Total Antibody REACTIVE H Hepatitis B Surface Antigen NEGATIVE Hepatitis C Antibody NEGATIVE Indirect Bilirubin 6.0 H Lymphocytes # 0.6 L Lymphocytes % 70.0 H Mean Corpuscular Hemoglobin 31.4 Mean Corpuscular Hemoglobin Concent 34.4 Mean Corpuscular Volume 91.5 Mean Platelet Volume 12.9 H Monocytes # 0.0 L Monocytes % 2.0 Neutrophils # 0.2 L Neutrophils % 25.0 L Platelet Count 20 *L Potassium Level 4.2 Red Blood Count 2.83 #L Red Cell Distribution Width 17.5 H Sodium Level 139 Total Bilirubin 6.0 H Total Protein 5.5 L White Blood Count 0.9 #L Medications Medications Current Medications Docusate Sodium (Colace) 100 mg BID PO Last administered on 04/22/16 08:06; Admin Dose 100 MG; Start 04/20/16 at 21:00 Pantoprazole (Protonix Iv) 40 mg DAILY@06 IV Last administered on 04/22/16 06: 15; Admin Dose 40 MG; Start 04/21/16 at 06:00 Ondansetron HCl (Zofran Inj) 4 mg Q6H PRN IV NAUSEA AND/OR VOMITING; Start at 15:30 Hydrochlorothiazide (Hydrochlorothiazide) 25 mg DAILY PO Last administered on 08:06; Admin Dose 25 MG; Start 04/21/16 at 11:30 Hydralazine HCl (Apresoline) 25 mg Q8 PO Last administered on 04/22/16 18:11; Admin Dose 25 MG; Start 04/22/16 at 16:30 Procedures Procedures [place] [id number] Radiology Main Line: [phone] DIAGNOSTIC IMAGING REPORT Patient: CHRISTINA SEXTON : 1940 Age: 75 Sex: M MR #: [id number] [facility] #: [id number] DOS: 04/21/16 1154 Ordering MD: THERESA KEYES MD Location: [facility] [place] Room/Bed: 632-A PROCEDURE: CT Chest, Abdomen and Pelvis with contrast. CLINICAL INDICATION: Cough. Abdominal and pelvic pain. Staging. TECHNIQUE: CT scan of the chest, abdomen, and pelvis with intravenous contrast was performed with helical axial sections. The patient was scanned during intravenous injection of 100 ml of Visipaque 320 intravenous contrast. 2 -D coronal reformatted images were obtained from the axial source images. Total exam DLP is 1074.59 mGy-cm. CTDIvol is 13.61 MGy. One or more of the following dose reduction techniques were used: Automated exposure control, adjustment of the mA and/or kV according to patient size, use of iterative reconstruction technique. COMPARISON: Noncontrast CT scan of the abdomen and pelvis dated 04/20/2016. FINDINGS: CT chest: There is mild linear atelectasis at the lung bases posteriorly. The lungs are otherwise clear with no other airspace or interstitial disease. There is no pulmonary nodule or mass lesion. There is no mediastinal or hilar lymphadenopathy or mass. Completely calcified small lymph nodes are present in the subcarinal region and left hilar region from previous granulomatous disease. The thoracic aorta is not dilated. There is no pleural effusion. There is a very small pericardial effusion. The heart is enlarged. CT abdomen: The liver is normal in size and attenuation. There is no focal hepatic lesion. The gallbladder is contracted and there are probable gallstones in the gallbladder. There is no evidence of cholecystitis. The bile ducts are normal. There is a small benign cyst superiorly in the spleen measuring 1.2 cm. The pancreas is normal with no mass or evidence of pancreatitis. Both adrenals are normal with no enlargement or mass. Both kidneys demonstrate normal contrast enhancement. There is no solid renal mass or hydronephrosis. There are benign left renal cysts with the largest measuring 2.2 cm. There are small nonobstructing right renal calculi as seen previously. There is no other urinary tract calculus. The abdominal aorta is not dilated. There is calcification in the aorta consistent with atherosclerosis. 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 The right inferior vena cava extends from the right common iliac vein to the right atrium. There is no retroperitoneal lymphadenopathy or mass. The bowel and mesentery are normal. There is no free fluid or free gas. CT pelvis: There is no pelvic lymphadenopathy or mass. The bladder and distal ureters are normal. The periappendiceal region is unremarkable with no evidence of appendicitis. The bowel and mesentery are normal. There is no free fluid or free gas. Osseous structures: There is no fracture. There is no lytic or blastic lesion. There are severe degenerative changes of the lumbar spine with multilevel stenosis. There is severe central stenosis at L5-S1. IMPRESSION: 1. Mild atelectasis at the lung bases posteriorly. 2. Completely calcified small lymph nodes in the subcarinal region and left hilar region from previous granulomatous disease. 3. Very small pericardial effusion. 4. Cardiomegaly. 5. Contracted gallbladder with probable gallstones in the gallbladder. 6. Small benign cyst superiorly in the spleen measuring 1.2 cm. 7. Benign left renal cysts. 8. Small nonobstructing right renal calculi. 9. Atherosclerosis. 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 11. 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 12. No evidence of neoplasm. RPTAT: QQ .Rohit Shaikh MD, Date Time Electronically viewed and signed by .Rohit Shaikh MD, on 04/21/2016 15:56 .R/ CC: THERESA KEYES MD, VERA M MD Apr 22, 2016 21:55
[2016-04-22] MEDS ORDERED: hydrALAzine 20 MG INJ IV PRN (22:30)
[2016-04-23 05:32] LABS: PROTEIN, TOTAL 5.5 g/dL (6.1-8.1)
[2016-04-23 05:54] LABS: ADD SCAN DIFF NO
[2016-04-23] MEDS: PANTOPRAZOLE 40 MG INJ IV SCH (06:06)
[2016-04-23 06:15] LABS: ABNORMAL IP MESSAGE 1; HEMOGLOBIN 10.4 g/dl (14.0-18.0); MEAN CORPUSCULAR HEMOGLOBIN 30.9 pg (29.0-33.0); MEAN CORPUSCULAR HGB CONC 34.7 g/dl (32.0-37.0); RED BLOOD COUNT 3.37 10^6/ul (4.70-6.10); RED CELL DISTRIBUTION WIDTH 17.8 % (11.5-14.5)
[2016-04-23 06:22] LABS: ALBUMIN 3.3 g/dl (3.3-4.9)
[2016-04-23 06:23] LABS: POTASSIUM 3.4 mmol/L (3.5-5.1)
[2016-04-23 06:25] LABS: ALBUMIN/GLOBULIN RATIO 1.26; BILIRUBIN,INDIRECT 5.1 mg/dl (0-1.1); BILIRUBIN,TOTAL 5.1 mg/dl (0.2-1.3); CREATININE 0.62 mg/dl (0.61-1.24); TOTAL PROTEIN 5.9 g/dl (6.1-8.1)
[2016-04-23 06:26] LABS: CALCIUM 8.3 mg/dl (8.4-10.2)
[2016-04-23 06:49] LABS: PLATELET COUNT 11 10^3/UL (140-415)
[2016-04-23 07:57] LABS: ANISOCYTOSIS 1+; EOSINOPHILS # 0.1 10^3/ul (0.0-0.5); LYMPHOCYTES # 0.5 10^3/ul (0.8-2.9); NEUTROPHIL # 0.4 10^3/ul (1.6-7.5); POIKILOCYTOSIS 1+
[2016-04-23 07:58] LABS: OVALOCYTES FEW; PLATELET ESTIMATE PLT APPEAR DECREASED
[2016-04-23 08:18] VITALS: BP 127/56; RESP 20
[2016-04-23] MEDS: DOCUSATE SODIUM 100 MG CAP PO SCH ×2 (08:43→22:24)
[2016-04-23] MEDS: HYDROCHLOROTHIAZIDE 25 MG TAB PO SCH (08:43)
[2016-04-23] MEDS: CYANOCOBALAMIN 1000 MCG INJ IM SCH (08:44)
[2016-04-23 10:11] LABS: INR 1.06; PROTIME 13.8 Sec (12.2-14.2); PT RATIO 1.1
[2016-04-23 10:12] LABS: PARTIAL THROMBOPLASTIN TIME 32.4 Sec (25.0-35.0); THROMBIN TIME 14.3 SEC (13.8-19.1)
[2016-04-23 10:13] LABS: PLATELET COUNT 11 10^3/UL (140-415)
[2016-04-23 10:15] LABS: D-DIMER 1948.49 ng/ml (<460)
[2016-04-23] MEDS ORDERED: POTASSIUM CHLORIDE (SR) 20 MEQ TAB PO STA (10:23)
--- NOTE | 2016-04-23 10:29 | PN ---
Date/Time of Note Date/Time of Note DATE: 04/23/16 TIME: 10:22 Assessment/Plan VTE Prophylaxis VTE Prophylaxis Intervention: SCD's VTE Contraindication Reason: bleeding Lines/Catheters IV Catheter Type (from Nrs): Saline Lock Urinary Cath still in place: No Assessment/Plan Assessment/Plan 75 yo M managed for 1. Severe Pancytopenia with lymphocytosis ?2/2 Severe Vitamin 12 deficiency, ?cause Patient with hyperbilirubinemia as well suggestive of hemolysis but with no reticulocytosis 2. Rectal wall thickening: likely 2/[address] + contrast 3. Situational Depression + Suicidal ideation : improved 4. Hypertension: control much improved on current regimen 5. Low HDL 6. Asymptomatic bradycardia 7. Mild diastolic dysfxn and elevated PA pressure on Echo Plan: * stool softeners and laxative * appreciate hematology input and interventions / f/u path report * appreciate GI review / planned for colonoscopy when leucopenia and thrombocytopenia improves * Continue Leukopenic precautions * Continue current antihypertensives * Fish oil for dyslipidemia * Supportive care * Needs placement at discharge PROPHYLAXIS: SCDs / PPI IV Subjective 24 Hr Interval Summary Free Text/Dictation s/p successful bone marrow biopsy yesterday c/o constipation Exam/Review of Systems Vital Signs Vitals Vital Signs Date Time Temp Pulse Resp B/P Pulse Ox O2 Delivery O2 Flow Rate FiO2 04/23/16 08:18 100.1 69 20 127/56 96 04/22/16 18:00 Nasal Cannula 04/22/16 16:30 2.0 Intake and Output 04/22/16 04/22/16 04/23/16 15:00 23:00 07:00 Intake Total 750 ml 240 ml Output Total 625 ml Balance 750 ml -385 ml Results Result Diagram: 04/23/16 0935 04/23/16 0505 Results 24 hrs Laboratory Tests Test 04/22/16 11:17 04/23/16 05:05 04/23/16 09:35 Hepatitis A IgM Antibody NON-REACTIVE Alanine Aminotransferase (ALT/SGPT) 20 Albumin 3.3 Albumin/Globulin Ratio 1.26 Alkaline Phosphatase 56 Anion Gap 12 Anisocytosis 1+ Aspartate Amino Transf (AST/SGOT) 11 L Basophils # Basophils % Blood Urea Nitrogen 19 Calcium Level 8.3 L Carbon Dioxide Level 32 H Chloride Level 98 Creatinine 0.62 Direct Bilirubin 0.00 Eosinophils # 0.1 Eosinophils % 5.0 Globulin 2.60 Glucose Level 105 Hematocrit 30.0 L Hemoglobin 10.4 L Indirect Bilirubin 5.1 H Lymphocytes # 0.5 L Lymphocytes % 54.0 H Magnesium Level 2.0 Mean Corpuscular Hemoglobin 30.9 Mean Corpuscular Hemoglobin Concent 34.7 Mean Corpuscular Volume 89.0 Mean Platelet Volume Monocytes # Monocytes % Neutrophils # 0.4 L Neutrophils % 41.0 Ovalocytes FEW Platelet Count 11 #*L 11 *L Platelet Estimate PLT APPEAR DECREASED Poikilocytosis 1+ Potassium Level 3.4 L Red Blood Count 3.37 L Red Cell Distribution Width 17.8 H Sodium Level 139 Total Bilirubin 5.1 H Total Protein 5.9 L White Blood Count 1.0 L Activated Partial Thromboplast Time 32.4 D-Dimer 1948.49 H D-Dimer Comment Fibrinogen 214.0 INR International Normalized Ratio 1.06 Plasma Fibrin Degradation Products Pending Prothrombin Time 13.8 Prothrombin Time Ratio 1.1 Thrombin Time Pending Medications Medications Current Medications Docusate Sodium (Colace) 100 mg BID PO Last administered on 04/23/16 08:43; Admin Dose 100 MG; Start 04/20/16 at 21:00 Pantoprazole (Protonix Iv) 40 mg DAILY@06 IV Last administered on 04/23/16 06: 06; Admin Dose 40 MG; Start 04/21/16 at 06:00 Ondansetron HCl (Zofran Inj) 4 mg Q6H PRN IV NAUSEA AND/OR VOMITING; Start at 15:30 Hydrochlorothiazide (Hydrochlorothiazide) 25 mg DAILY PO Last administered on 08:43; Admin Dose 25 MG; Start 04/21/16 at 11:30 Hydralazine HCl (Apresoline) 25 mg Q8 PO Last administered on 04/23/16 06:06; Admin Dose 25 MG; Start 04/22/16 at 16:30 Hydralazine HCl (Apresoline) 10 mg Q6H PRN IV SBP>160 Last administered on 04/22 22:13; Admin Dose 10 MG; Start 04/22/16 at 22:30 Cyanocobalamin (Vitamin B12 Inj) 1,000 mcg DAILY IM Last administered on 08:44; Admin Dose 1,000 MCG; Start 04/23/16 at 09:00 Procedures Procedures Echocardiogram Report Patient Name: CHRISTINA SEXTON Gender: Male Date: 1940 Study Date: 20-Apr-2016 [employer] Truck Driver: Marguerite Aguirre RDCS Location: [facility] Ref. Physician: WALE LORENZO Quality: Adequate Procedures: Transthoracic echocardiogram with complete 2D, M-Mode, and doppler examination. Indications: severe anemia. 2D/M Mode Doppler Measurement Value Normal Ranges Measurement Value Normal Ranges LVIDd 2D 6.0 3.5 - 5.6 cm AV Peak Rigoberto 1.4 m/sec LVIDs 2D 3.2 2.1 - 4.1 cm AV Peak PG 8.0 mmHg FS 2D 45.6 % AI Peak PG 72.0 mmHg LVPWd 2D 1.3 0.6 - 1.1 cm AI Peak Rigoberto 4.3 m/sec IVSd 2D 1.0 0.6 - 1.1 cm AI PHT 418.0 msec IVS/LVPW 2D 0.8 LVOT Peak Rigoberto 1.2 m/sec AoR Diam 2D 3.6 2.0 - 3.7 cm LVOT Peak PG 6.0 mmHg LA/Ao 2D 1 0 - 1 MV E Peak Rigoberto 0.7 m/sec EDV 2D 212.0 cm3 MV A Peak Rigoberto 0.9 m/sec ESV 2D 34.0 cm3 MV E/A 0.7 LA Dimen 2D 3.6 2.3 - 4.0 cm MV Decel Time 141 msec MV E/A 0.7 TR Peak Rigoberto 3.3 m/sec TR Peak PG 43.0 mmHg RVSP 46.0 mmHg Findings Left Ventricle: Normal left ventricular systolic function. Mild asymmetric septal hypertrophy. Mild enlargement of left ventricle cavity. Ejection fraction is visually estimated at 60 %. Tissue Doppler/Mitral Doppler indices are consistent with impaired relaxation (Stage I diastolic dysfunction). Right Ventricle: Normal right ventricular size. Normal right ventricular systolic function. Left Atrium: The left atrium is normal in size. Right Atrium: The right atrium is normal in size. Mitral Valve: Mitral valve leaflets appear mildly thickened. Mild mitral annular calcification. Mild mitral valve regurgitation. Aortic Valve: No hemodynamically significant aortic stenosis by doppler. Aortic cusps appear mildly calcified. Mild to moderate aortic valve regurgitation. Tricuspid Valve: Estimated peak PA systolic pressure 46 mmHg. Tricuspid valve appears mildly thickened. There is moderate tricuspid regurgitation. Pulmonic Valve: Pulmonic valve not well visualized. Pericardium: Small pericardial effusion. Aorta: Normal aortic root. IVC: Normal size and normal respiratory collapse consistent with normal right atrial pressure. Conclusions 1. Normal left ventricular systolic function. Mild asymmetric septal hypertrophy. Mild enlargement of left ventricle cavity. Ejection fraction is visually estimated at 60 %. Tissue Doppler/Mitral Doppler indices are consistent with impaired relaxation (Stage I diastolic dysfunction). 2. Mitral valve leaflets appear mildly thickened. Mild mitral annular calcification. Mild mitral valve regurgitation. 3. No hemodynamically significant aortic stenosis by doppler. Aortic cusps appear mildly calcified. Mild to moderate aortic valve regurgitation. 4. Estimated peak PA systolic pressure 46 mmHg. Tricuspid valve appears mildly thickened. There is moderate tricuspid regurgitation. 5. Small pericardial effusion. Electronically Signed By: Dani Degroot 20-Apr-2016 16:26:17 -0800 Patient Name: CHRISTINA SEXTON Study Date: 20-Apr-2016 WALE LORENZO Apr 23, 2016 10:29
--- NOTE | 2016-04-23 11:20 | PN ---
Date/Time of Note Date/Time of Note DATE: 04/23/16 TIME: 11:17 Assessment/Plan VTE Prophylaxis VTE Prophylaxis Intervention: SCD's Lines/Catheters IV [facility] Saline Lock Urinary Cath still in place: No Assessment/Plan Assessment/Plan Assessment/Plan Acute anemia * CT abdomen 04-20-16: Focal concentric wall thickening of the midportion of the rectum with very mild perirectal infiltration and nonspecific presacral edema. Colonoscopy versus close interval imaging follow-up is recommended to exclude neoplasm. * Stool OB 1 * Colonoscopy when clinically stable from hematological point of view * Monitor hemoglobin every 8 hours, transfuse 2 units for hemoglobin less then 7.5 Pancytopenia * HemeOnc following * Maintain neutropenic precautions Suicidal ideation * Sitter in room * Mental health evaluation in process * Further recommendations depend on clinical course Subjective 24 Hr Interval Summary Free Text/Dictation Course reviewed with nursing staff Also reviewed with oncologist No new GI symptomatology Pancytopenia remains significant Exam/Review of Systems Vital Signs Vitals Vital Signs Date Time Temp Pulse Resp B/P Pulse Ox O2 Delivery O2 Flow Rate FiO2 04/23/16 08:18 100.1 69 20 127/56 96 04/22/16 18:00 Nasal Cannula 04/22/16 16:30 2.0 Intake and Output 04/22/16 04/22/16 04/23/16 15:00 23:00 07:00 Intake Total 750 ml 240 ml Output Total 625 ml Balance 750 ml -385 ml Exam Constitutional: alert, oriented Head: normocephalic Eyes: EOMI, nl conjunctiva, nl lids, sclera icteric ENMT: nl external ears & nose, nl lips & teeth, nl nasal mucosa & septum Respiratory: normal air movement Cardiovascular: regular rate and rhythm Gastrointestinal: non-tender, soft Musculoskeletal: nl extremities to inspection Neurological: RADIATION ONCOLOGY MANAGER II-XII intact Results Result Diagram: 04/23/16 0935 04/23/16 0505 Results 24 hrs Laboratory Tests Test 04/23/16 05:05 04/23/16 09:35 Alanine Aminotransferase (ALT/SGPT) 20 Albumin 3.3 Albumin/Globulin Ratio 1.26 Alkaline Phosphatase 56 Anion Gap 12 Anisocytosis 1+ Aspartate Amino Transf (AST/SGOT) 11 L Basophils # Basophils % Blood Urea Nitrogen 19 Calcium Level 8.3 L Carbon Dioxide Level 32 H Chloride Level 98 Creatinine 0.62 Direct Bilirubin 0.00 Eosinophils # 0.1 Eosinophils % 5.0 Globulin 2.60 Glucose Level 105 Hematocrit 30.0 L Hemoglobin 10.4 L Indirect Bilirubin 5.1 H Lymphocytes # 0.5 L Lymphocytes % 54.0 H Magnesium Level 2.0 Mean Corpuscular Hemoglobin 30.9 Mean Corpuscular Hemoglobin Concent 34.7 Mean Corpuscular Volume 89.0 Mean Platelet Volume Monocytes # Monocytes % Neutrophils # 0.4 L Neutrophils % 41.0 Ovalocytes FEW Platelet Count 11 #*L 11 *L Platelet Estimate PLT APPEAR DECREASED Poikilocytosis 1+ Potassium Level 3.4 L Red Blood Count 3.37 L Red Cell Distribution Width 17.8 H Sodium Level 139 Total Bilirubin 5.1 H Total Protein 5.9 L White Blood Count 1.0 L Activated Partial Thromboplast Time 32.4 D-Dimer 1948.49 H D-Dimer Comment Fibrinogen 214.0 INR International Normalized Ratio 1.06 Plasma Fibrin Degradation Products Pending Prothrombin Time 13.8 Prothrombin Time Ratio 1.1 Thrombin Time Pending Medications Medications Current Medications Docusate Sodium (Colace) 100 mg BID PO Last administered on 04/23/16 08:43; Admin Dose 100 MG; Start 04/20/16 at 21:00 Pantoprazole (Protonix Iv) 40 mg DAILY@06 IV Last administered on 04/23/16 06: 06; Admin Dose 40 MG; Start 04/21/16 at 06:00 Ondansetron HCl (Zofran Inj) 4 mg Q6H PRN IV NAUSEA AND/OR VOMITING; Start at 15:30 Hydrochlorothiazide (Hydrochlorothiazide) 25 mg DAILY PO Last administered on 08:43; Admin Dose 25 MG; Start 04/21/16 at 11:30 Hydralazine HCl (Apresoline) 10 mg Q6H PRN IV SBP>160 Last administered on 04/22 22:13; Admin Dose 10 MG; Start 04/22/16 at 22:30 Cyanocobalamin (Vitamin B12 Inj) 1,000 mcg DAILY IM Last administered on 08:44; Admin Dose 1,000 MCG; Start 04/23/16 at 09:00 Hydralazine HCl (Apresoline) 25 mg Q12 PO ; Start 04/23/16 at 21:00 YANE WEEKS MD Apr 23, 2016 11:20
[2016-04-23 11:37] LABS: FIBRIN SPLIT PRODUCT <10 ug/ml (<10)
--- NOTE | 2016-04-23 12:18 | CONS ---
Date/Time of Note Date/Time of Note DATE: 04/23/16 TIME: 12:16 Assessment/Plan Assessment/Plan Chief Complaint/Hosp Course SEVERE PANCYTOPENIA WITH NEUTROPENIA, MACROCYTIC ANEMIA- REQUIRING PRBC TRANSFUSION- 6U THROMBOCYTOPENIA WITHOUT EVIDENCE OF BLEEDING ASSOCIATED WITH INCREASED INDIRECT BILI, SUGGESTING INTRAVASCULAR HEMOLYSIS PLAN: COMPLETE PANCYTOPENIA W-UP SMEAR- NEG HEMOLYSIS W-UP CT ABD- NEG POST BMBX- AWAIT RESULT MONITOR BLOOD COUNT CLOSELY OBSERVE FOR BLEEDING AND HEMOLYSIS TRANSFUSE IF HB FABIO THAN 8 AND PLATELET LESS THAN 50898 Maintain neutropenic precautions PROFOUND B12 DEFICIENCY CAN EXPLAIN PANCYTOPENIA CONT B12 Suicidal ideation * Sitter in room * Mental health evaluation in process SOCIAL PROBLEMS / HOMELESS Problems: Consultation Date/Type/Reason Admit Date/Time Apr 20, 2016 at 12:32 Initial Consult Date 04/21/16 Type of Consultation: HEMEONC Referring Provider: WALE LORENZO 24 HR Interval Summary Free Text/Dictation ALL NOTED NO NEW EVENTS POST BMBX NO BLEEDING W-UP IN PROGRESS Exam/Review of Systems Vital Signs Vitals Vital Signs Date Time Temp Pulse Resp B/P Pulse Ox O2 Delivery O2 Flow Rate FiO2 04/23/16 08:18 100.1 69 20 127/56 96 04/22/16 18:00 Nasal Cannula 04/22/16 16:30 2.0 Intake and Output 04/22/16 04/22/16 04/23/16 15:00 23:00 07:00 Intake Total 750 ml 240 ml Output Total 625 ml Balance 750 ml -385 ml Exam Constitutional: alert, oriented Head: normocephalic Eyes: EOMI, nl conjunctiva, nl lids, sclera icteric ENMT: nl external ears & nose, nl lips & teeth, nl nasal mucosa & septum Respiratory: normal air movement Cardiovascular: regular rate and rhythm Gastrointestinal: non-tender, soft Musculoskeletal: nl extremities to inspection Neurological: HEAT TREATER HELPER II-XII intact Results Result Diagram: 04/23/16 0935 04/23/16 0505 Results 24 hrs Laboratory Tests Test 04/23/16 05:05 04/23/16 09:35 Alanine Aminotransferase (ALT/SGPT) 20 Albumin 3.3 Albumin/Globulin Ratio 1.26 Alkaline Phosphatase 56 Anion Gap 12 Anisocytosis 1+ Aspartate Amino Transf (AST/SGOT) 11 L Basophils # Basophils % Blood Urea Nitrogen 19 Calcium Level 8.3 L Carbon Dioxide Level 32 H Chloride Level 98 Creatinine 0.62 Direct Bilirubin 0.00 Eosinophils # 0.1 Eosinophils % 5.0 Globulin 2.60 Glucose Level 105 Hematocrit 30.0 L Hemoglobin 10.4 L Indirect Bilirubin 5.1 H Lymphocytes # 0.5 L Lymphocytes % 54.0 H Magnesium Level 2.0 Mean Corpuscular Hemoglobin 30.9 Mean Corpuscular Hemoglobin Concent 34.7 Mean Corpuscular Volume 89.0 Mean Platelet Volume Monocytes # Monocytes % Neutrophils # 0.4 L Neutrophils % 41.0 Ovalocytes FEW Platelet Count 11 #*L 11 *L Platelet Estimate PLT APPEAR DECREASED Poikilocytosis 1+ Potassium Level 3.4 L Red Blood Count 3.37 L Red Cell Distribution Width 17.8 H Sodium Level 139 Total Bilirubin 5.1 H Total Protein 5.9 L White Blood Count 1.0 L Activated Partial Thromboplast Time 32.4 D-Dimer 1948.49 H D-Dimer Comment Fibrinogen 214.0 INR International Normalized Ratio 1.06 Plasma Fibrin Degradation Products <10 Prothrombin Time 13.8 Prothrombin Time Ratio 1.1 Thrombin Time 14.3 Medications Medications Current Medications Docusate Sodium (Colace) 100 mg BID PO Last administered on 04/23/16 08:43; Admin Dose 100 MG; Start 04/20/16 at 21:00 Pantoprazole (Protonix Iv) 40 mg DAILY@06 IV Last administered on 04/23/16 06: 06; Admin Dose 40 MG; Start 04/21/16 at 06:00 Ondansetron HCl (Zofran Inj) 4 mg Q6H PRN IV NAUSEA AND/OR VOMITING; Start at 15:30 Hydrochlorothiazide (Hydrochlorothiazide) 25 mg DAILY PO Last administered on 08:43; Admin Dose 25 MG; Start 04/21/16 at 11:30 Hydralazine HCl (Apresoline) 10 mg Q6H PRN IV SBP>160 Last administered on 04/22 22:13; Admin Dose 10 MG; Start 04/22/16 at 22:30 Cyanocobalamin (Vitamin B12 Inj) 1,000 mcg DAILY IM Last administered on 08:44; Admin Dose 1,000 MCG; Start 04/23/16 at 09:00 Hydralazine HCl (Apresoline) 25 mg Q12 PO ; Start 04/23/16 at 21:00 THERESA KEYES MD Apr 23, 2016 12:18
[2016-04-23 16:37] LABS: ALBUMIN 3.3 g/dL (3.8-4.8)
[2016-04-23] MEDS ORDERED: MAGNESIUM CITRATE 300 ML BTL PO ONE (19:30)
[2016-04-23 20:15] VITALS: BP 107/57; RESP 20
[2016-04-23] MEDS: SENNA TAB PO SCH (22:24)
[2016-04-23 22:26] VITALS: BP 107/55; PULSE 66
[2016-04-24 05:48] LABS: ADD SCAN DIFF NO
[2016-04-24 06:06] LABS: ABNORMAL IP MESSAGE 1; HEMATOCRIT 29.6 % (42.0-52.0); MEAN CORPUSCULAR HEMOGLOBIN 30.7 pg (29.0-33.0); MEAN CORPUSCULAR HGB CONC 33.8 g/dl (32.0-37.0); MEAN CORPUSCULAR VOLUME 90.8 fl (82.0-101.0); RED BLOOD COUNT 3.26 10^6/ul (4.70-6.10); RED CELL DISTRIBUTION WIDTH 17.5 % (11.5-14.5); WHITE BLOOD COUNT 1.3 10^3/ul (4.8-10.8)
[2016-04-24 06:12] LABS: ALBUMIN 3.3 g/dl (3.3-4.9); CHLORIDE 99 mmol/L (97-110)
[2016-04-24 06:13] LABS: POTASSIUM 4.2 mmol/L (3.5-5.1); SODIUM 143 mmol/L (135-144)
[2016-04-24 06:15] LABS: ALANINE AMINOTRANSFERASE 17 IU/L (13-69); ALBUMIN/GLOBULIN RATIO 1.17; ALKALINE PHOSPHATASE 60 IU/L (42-121); ANION GAP 13 (8-16); ASPARTATE AMINO TRANSFERASE 10 IU/L (15-46); BILIRUBIN,INDIRECT 2.9 mg/dl (0-1.1); BILIRUBIN,TOTAL 2.9 mg/dl (0.2-1.3); BLOOD UREA NITROGEN 20 mg/dl (7-20); CARBON DIOXIDE 35 mmol/L (21-31); GLUCOSE 114 mg/dl (70-220); TOTAL PROTEIN 6.1 g/dl (6.1-8.1)
[2016-04-24 06:16] LABS: CALCIUM 8.5 mg/dl (8.4-10.2); MAGNESIUM 2.3 mg/dl (1.7-2.5)
[2016-04-24 06:17] LABS: PLATELET COUNT 10 10^3/UL (140-415)
[2016-04-24] MEDS: PANTOPRAZOLE 40 MG INJ IV SCH (06:19)
[2016-04-24 07:56] VITALS: BP 109/60; RESP 19
[2016-04-24] MEDS: DOCUSATE SODIUM 100 MG CAP PO SCH ×2 (09:07→21:00)
[2016-04-24] MEDS: CYANOCOBALAMIN 1000 MCG INJ IM SCH (09:08)
[2016-04-24] MEDS: HYDROCHLOROTHIAZIDE 25 MG TAB PO SCH (09:08)
[2016-04-24 09:37] LABS: EOSINOPHILS # 0.1 10^3/ul (0.0-0.5); LYMPHOCYTES # 1.1 10^3/ul (0.8-2.9); NEUTROPHIL # 0.1 10^3/ul (1.6-7.5); PLATELET ESTIMATE PLT APPEAR DECREASED
--- NOTE | 2016-04-24 09:51 | PN ---
Date/Time of Note Date/Time of Note DATE: 04/24/16 TIME: 09:44 Assessment/Plan VTE Prophylaxis VTE Prophylaxis Intervention: SCD's VTE Contraindication Reason: thrombocytopenia Lines/Catheters IV [facility] Saline Lock Urinary Cath still in place: No Assessment/Plan Assessment/Plan 5 yo M managed for 1. Severe Pancytopenia with lymphocytosis ?2/2 Severe Vitamin 12 deficiency, ?cause Patient with hyperbilirubinemia as well suggestive of hemolysis but with no reticulocytosis 2. Rectal wall thickening: likely 2/[address] + contrast 3. Situational Depression + Suicidal ideation : improved * wanted to because of lack of resources, feels much better now 4. Hypertension: control much improved on current regimen 5. Low HDL 6. Asymptomatic bradycardia 7. Mild diastolic dysfxn and elevated PA pressure on Echo Plan: * appreciate hematology input and interventions / f/u path report * appreciate GI review / planned for colonoscopy when leucopenia and thrombocytopenia improves * Continue Leukopenic precautions * Continue current antihypertensives * Isolated fever episode noted / commence abx and cultures if persistent * Supportive care * Needs placement at discharge PROPHYLAXIS: SCDs / PPI IV Subjective 24 Hr Interval Summary Constitutional: improved, no complaints Exam/Review of Systems Vital Signs Vitals Vital Signs Date Time Temp Pulse Resp B/P Pulse Ox O2 Delivery O2 Flow Rate FiO2 04/24/16 07:56 98.2 65 19 109/60 94 04/22/16 18:00 Nasal Cannula 04/22/16 16:30 2.0 Intake and Output 04/23/16 04/23/16 04/24/16 15:00 23:00 07:00 Intake Total 800 ml Output Total 450 ml 700 ml Balance 350 ml -700 ml Exam Constitutional: alert, oriented (x4), other (elderly male), No distress Psych: nl mood/affect, No anxiety Head: atraumatic, normocephalic Eyes: PERRL, icteric (+) ENMT: mucosa pink and moist Neck: non-tender Respiratory: clear to auscultation, diminished breath sounds Cardiovascular: regular rate and rhythm, No murmurs/extra sounds Gastrointestinal: bowel sounds, non-tender, soft Musculoskeletal: nl extremities to inspection Extremities: No edema Neurological: nl mental status, nl speech, No focal weakness Skin: other (jaundice?) Psych: nl mood/affect (looks happy), No depression, No suicidal Results Result Diagram: 04/24/165 04/24/16 0445 Results 24 hrs Laboratory Tests Test 04/24/16 04:45 Alanine Aminotransferase (ALT/SGPT) 17 Albumin 3.3 Albumin/Globulin Ratio 1.17 Alkaline Phosphatase 60 Anion Gap 13 Aspartate Amino Transf (AST/SGOT) 10 L Blood Urea Nitrogen 20 Calcium Level 8.5 Carbon Dioxide Level 35 H Chloride Level 99 Creatinine 0.60 L Differential Comment MANUAL DIFF Direct Bilirubin 0.00 Eosinophils # 0.1 Eosinophils % 6.0 Globulin 2.80 Glucose Level 114 Hematocrit 29.6 L Hemoglobin 10.0 L Indirect Bilirubin 2.9 H Lymphocytes # 1.1 Lymphocytes % 81.0 H Magnesium Level 2.3 Mean Corpuscular Hemoglobin 30.7 Mean Corpuscular Hemoglobin Concent 33.8 Mean Corpuscular Volume 90.8 Mean Platelet Volume Monocytes # 0.0 L Monocytes % 2.0 Neutrophils # 0.1 L Neutrophils % 10.0 L Nucleated Red Blood Cells % 1.0 H Platelet Count 10 *L Platelet Estimate PLT APPEAR DECREASED Potassium Level 4.2 Promyelocytes # 0.0 Promyelocytes % 1.0 H Red Blood Count 3.26 L Red Cell Distribution Width 17.5 H Sodium Level 143 Total Bilirubin 2.9 #H Total Protein 6.1 Vitamin B12 Level > 1000 H White Blood Count 1.3 #L Medications Medications Current Medications Docusate Sodium (Colace) 100 mg BID PO Last administered on 04/24/16 09:07; Admin Dose 100 MG; Start 04/20/16 at 21:00 Pantoprazole (Protonix Iv) 40 mg DAILY@06 IV Last administered on 04/24/16 06: 19; Admin Dose 40 MG; Start 04/21/16 at 06:00 Ondansetron HCl (Zofran Inj) 4 mg Q6H PRN IV NAUSEA AND/OR VOMITING; Start at 15:30 Hydrochlorothiazide (Hydrochlorothiazide) 25 mg DAILY PO Last administered on 09:08; Admin Dose 25 MG; Start 04/21/16 at 11:30 Hydralazine HCl (Apresoline) 10 mg Q6H PRN IV SBP>160 Last administered on 04/22 22:13; Admin Dose 10 MG; Start 04/22/16 at 22:30 Cyanocobalamin (Vitamin B12 Inj) 1,000 mcg DAILY IM Last administered on 09:08; Admin Dose 1,000 MCG; Start 04/23/16 at 09:00 Hydralazine HCl (Apresoline) 25 mg Q12 PO Last administered on 04/24/16 09:09 ; Admin Dose 25 MG; Start 04/23/16 at 21:00 Senna (Senokot) 2 tab QHS PO Last administered on 04/23/16 22:24; Admin Dose 2 TAB; Start 04/23/16 at 21:00 WALE LORENZO Apr 24, 2016 09:51
--- NOTE | 2016-04-24 14:35 | PN ---
Date/Time of Note Date/Time of Note DATE: 04/24/16 TIME: 14:30 Assessment/Plan VTE Prophylaxis VTE Prophylaxis Intervention: SCD's Lines/Catheters IV C[facility]ter Type (from [facility]): Saline Lock Urinary Cath still in place: No Assessment/Plan Assessment/Plan Acute anemia * CT abdomen 04/20/2016: Focal concentric wall thickening of the midportion of the rectum with very mild perirectal infiltration and nonspecific presacral edema. Colonoscopy versus close interval imaging follow-up is recommended to exclude neoplasm. * CT abdomen 04/21/2016: Contrast study disclosed no abnormalities in the rectum * Will sign off and follow on a as needed basis upon request Pancytopenia * HemeOnc following * Maintain neutropenic precautions Suicidal ideation * Sitter in room * Mental health evaluation in process * Further recommendations depend on clinical course Subjective 24 Hr Interval Summary Free Text/Dictation Course reviewed with nursing staff Also reviewed with oncologist No new GI symptomatology Repeat CT shows no significant abnormalities No additional GI work up indicated Pancytopenia remains significant We will sign off on and remain available as needed Exam/Review of Systems Vital Signs Vitals Vital Signs Date Time Temp Pulse Resp B/P Pulse Ox O2 Delivery O2 Flow Rate FiO2 04/24/16 07:56 98.2 65 19 109/60 94 04/22/16 18:00 Nasal Cannula 04/22/16 16:30 2.0 Intake and Output 04/23/16 04/23/16 04/24/16 15:00 23:00 07:00 Intake Total 800 ml Output Total 450 ml 700 ml Balance 350 ml -700 ml Exam Constitutional: alert, oriented Head: normocephalic Eyes: EOMI, nl conjunctiva, nl lids, sclera icteric ENMT: nl external ears & nose, nl lips & teeth, nl nasal mucosa & septum Respiratory: normal air movement Cardiovascular: regular rate and rhythm Gastrointestinal: non-tender, soft Musculoskeletal: nl extremities to inspection Neurological: SUSTAINABILITY SPECIALIST II-XII intact Results Result Diagram: 04/24/165 04/24/16444 Results 24 hrs Laboratory Tests Test 04/24/16 04:45 04/24/16 09:30 Alanine Aminotransferase (ALT/SGPT) 17 Albumin 3.3 Albumin/Globulin Ratio 1.17 Alkaline Phosphatase 60 Anion Gap 13 Aspartate Amino Transf (AST/SGOT) 10 L Blood Urea Nitrogen 20 Calcium Level 8.5 Carbon Dioxide Level 35 H Chloride Level 99 Creatinine 0.60 L Differential Comment MANUAL DIFF Direct Bilirubin 0.00 Eosinophils # 0.1 Eosinophils % 6.0 Globulin 2.80 Glucose Level 114 Hematocrit 29.6 L Hemoglobin 10.0 L Indirect Bilirubin 2.9 H Lymphocytes # 1.1 Lymphocytes % 81.0 H Magnesium Level 2.3 Mean Corpuscular Hemoglobin 30.7 Mean Corpuscular Hemoglobin Concent 33.8 Mean Corpuscular Volume 90.8 Mean Platelet Volume Monocytes # 0.0 L Monocytes % 2.0 Neutrophils # 0.1 L Neutrophils % 10.0 L Nucleated Red Blood Cells % 1.0 H Platelet Count 10 *L Platelet Estimate PLT APPEAR DECREASED Potassium Level 4.2 Promyelocytes # 0.0 Promyelocytes % 1.0 H Red Blood Count 3.26 L Red Cell Distribution Width 17.5 H Sodium Level 143 Total Bilirubin 2.9 #H Total Protein 6.1 Vitamin B12 Level > 1000 H White Blood Count 1.3 #L Stool Occult Blood POSITIVE Medications Medications Current Medications Docusate Sodium (Colace) 100 mg BID PO Last administered on 04/24/16 09:07; Admin Dose 100 MG; Start 04/20/16 at 21:00 Pantoprazole (Protonix Iv) 40 mg DAILY@06 IV Last administered on 04/24/16 06: 19; Admin Dose 40 MG; Start 04/21/16 at 06:00 Ondansetron HCl (Zofran Inj) 4 mg Q6H PRN IV NAUSEA AND/OR VOMITING; Start at 15:30 Hydrochlorothiazide (Hydrochlorothiazide) 25 mg DAILY PO Last administered on 09:08; Admin Dose 25 MG; Start 04/21/16 at 11:30 Hydralazine HCl (Apresoline) 10 mg Q6H PRN IV SBP>160 Last administered on 04/22 22:13; Admin Dose 10 MG; Start 04/22/16 at 22:30 Cyanocobalamin (Vitamin B12 Inj) 1,000 mcg DAILY IM Last administered on 09:08; Admin Dose 1,000 MCG; Start 04/23/16 at 09:00 Hydralazine HCl (Apresoline) 25 mg Q12 PO Last administered on 04/24/16 09:09 ; Admin Dose 25 MG; Start 04/23/16 at 21:00 Senna (Senokot) 2 tab QHS PO Last administered on 04/23/16t 22:24; Admin Dose 2 TAB; Start 04/23/16 at 21:00 YANE WEEKS MD Apr 24, 2016 14:35
[2016-04-24 19:58] VITALS: BP 100/57; RESP 20
--- NOTE | 2016-04-24 20:05 | CONS ---
Date/Time of Note Date/Time of Note DATE: 04/24/16 TIME: 20:00 Assessment/Plan Assessment/Plan Chief Complaint/Hosp Course SEVERE PANCYTOPENIA WITH NEUTROPENIA, MACROCYTIC ANEMIA- REQUIRING PRBC TRANSFUSION- 6U THROMBOCYTOPENIA WITHOUT EVIDENCE OF BLEEDING ASSOCIATED WITH INCREASED INDIRECT BILI, SUGGESTING INTRAVASCULAR HEMOLYSIS PLAN: COMPLETE PANCYTOPENIA W-UP SMEAR- NEG HEMOLYSIS W-UP- HAPTO LESS THEN 15, WILL CHECK [facility] CT ABD- NEG POST BMBX- AWAIT RESULT MONITOR BLOOD COUNT CLOSELY OBSERVE FOR BLEEDING AND HEMOLYSIS TRANSFUSE IF HB FABIO THAN 8 AND PLATELET LESS THAN 61138 Maintain neutropenic precautions PROFOUND B12 DEFICIENCY CAN EXPLAIN PANCYTOPENIA CONT B12 Suicidal ideation * Sitter in room * Mental health evaluation in process SOCIAL PROBLEMS / HOMELESS Problems: Consultation Date/Type/Reason Admit Date/Time Apr 20, 2016 at 12:32 Initial Consult Date 04/21/16 Type of Consultation: HEMEONC Reason for Consultation pancytopenia Referring Provider: WALE LORENZO 24 HR Interval Summary Free Text/Dictation all noted d/w staff on B12 NO BLEEDING PLATELET COUNT 95589 Exam/Review of Systems Vital Signs Vitals Vital Signs Date Time Temp Pulse Resp B/P Pulse Ox O2 Delivery O2 Flow Rate FiO2 04/24/16 19:58 98.4 75 20 100/57 100 04/22/16 18:00 Nasal Cannula 04/22/16 16:30 2.0 Intake and Output 04/23/16 04/23/16 04/24/16 15:00 23:00 07:00 Intake Total 800 ml Output Total 450 ml 700 ml Balance 350 ml -700 ml Exam Constitutional: alert, oriented Head: normocephalic Eyes: EOMI, nl conjunctiva, nl lids, sclera icteric ENMT: nl external ears & nose, nl lips & teeth, nl nasal mucosa & septum Respiratory: normal air movement Cardiovascular: regular rate and rhythm Gastrointestinal: non-tender, soft Musculoskeletal: nl extremities to inspection Neurological: INSERTER PROMOTIONAL ITEM II-XII intact Results Result Diagram: 04/24/165 04/24/165 Results 24 hrs Laboratory Tests Test 04/24/16 04:45 04/24/16 09:30 Alanine Aminotransferase (ALT/SGPT) 17 Albumin 3.3 Albumin/Globulin Ratio 1.17 Alkaline Phosphatase 60 Anion Gap 13 Aspartate Amino Transf (AST/SGOT) 10 L Blood Urea Nitrogen 20 Calcium Level 8.5 Carbon Dioxide Level 35 H Chloride Level 99 Creatinine 0.60 L Differential Comment MANUAL DIFF Direct Bilirubin 0.00 Eosinophils # 0.1 Eosinophils % 6.0 Globulin 2.80 Glucose Level 114 Hematocrit 29.6 L Hemoglobin 10.0 L Indirect Bilirubin 2.9 H Lymphocytes # 1.1 Lymphocytes % 81.0 H Magnesium Level 2.3 Mean Corpuscular Hemoglobin 30.7 Mean Corpuscular Hemoglobin Concent 33.8 Mean Corpuscular Volume 90.8 Mean Platelet Volume Monocytes # 0.0 L Monocytes % 2.0 Neutrophils # 0.1 L Neutrophils % 10.0 L Nucleated Red Blood Cells % 1.0 H Platelet Count 10 *L Platelet Estimate PLT APPEAR DECREASED Potassium Level 4.2 Promyelocytes # 0.0 Promyelocytes % 1.0 H Red Blood Count 3.26 L Red Cell Distribution Width 17.5 H Sodium Level 143 Total Bilirubin 2.9 #H Total Protein 6.1 Vitamin B12 Level > 1000 H White Blood Count 1.3 #L Stool Occult Blood POSITIVE Medications Medications Current Medications Docusate Sodium (Colace) 100 mg BID PO Last administered on 04/24/16 09:07; Admin Dose 100 MG; Start 04/20/16 at 21:00 Ondansetron HCl (Zofran Inj) 4 mg Q6H PRN IV NAUSEA AND/OR VOMITING; Start at 15:30 Hydrochlorothiazide (Hydrochlorothiazide) 25 mg DAILY PO Last administered on 09:08; Admin Dose 25 MG; Start 04/21/16 at 11:30 Hydralazine HCl (Apresoline) 10 mg Q6H PRN IV SBP>160 Last administered on 04/22 22:13; Admin Dose 10 MG; Start 04/22/16 at 22:30 Cyanocobalamin (Vitamin B12 Inj) 1,000 mcg DAILY IM Last administered on 09:08; Admin Dose 1,000 MCG; Start 04/23/16 at 09:00 Hydralazine HCl (Apresoline) 25 mg Q12 PO Last administered on 04/24/16 09:09 ; Admin Dose 25 MG; Start 04/23/16 at 21:00 Senna (Senokot) 2 tab QHS PO Last administered on 2/25/17at 22:24; Admin Dose 2 TAB; Start 04/23/16 at 21:00 Pantoprazole (Protonix Tab) 40 mg DAILY@06 PO ; Start 04/25/16 at 06:00 THERESA KEYES MD Apr 24, 2016 20:05
[2016-04-24] MEDS: SENNA TAB PO SCH (21:00)
[2016-04-25 05:43] LABS: ADD SCAN DIFF NO
[2016-04-25 05:56] LABS: ABNORMAL IP MESSAGE 1; HEMOGLOBIN 9.9 g/dl (14.0-18.0); MEAN CORPUSCULAR HEMOGLOBIN 30.6 pg (29.0-33.0); MEAN CORPUSCULAR VOLUME 92.6 fl (82.0-101.0); RED BLOOD COUNT 3.24 10^6/ul (4.70-6.10); RED CELL DISTRIBUTION WIDTH 17.2 % (11.5-14.5); WHITE BLOOD COUNT 2.2 10^3/ul (4.8-10.8)
[2016-04-25] MEDS: PANTOPRAZOLE (EC) 40 MG TAB PO SCH ×2 (06:00→08:56)
[2016-04-25 06:13] LABS: PLATELET COUNT 7 10^3/UL (140-415)
[2016-04-25 06:15] LABS: ALBUMIN 3.4 g/dl (3.3-4.9)
[2016-04-25 06:16] LABS: POTASSIUM 4.2 mmol/L (3.5-5.1)
[2016-04-25 06:18] LABS: ALBUMIN/GLOBULIN RATIO 1.13; BILIRUBIN,INDIRECT 1.8 mg/dl (0-1.1); BILIRUBIN,TOTAL 1.8 mg/dl (0.2-1.3); CREATININE 0.72 mg/dl (0.61-1.24); TOTAL PROTEIN 6.4 g/dl (6.1-8.1)
[2016-04-25 06:19] LABS: CALCIUM 8.6 mg/dl (8.4-10.2)
[2016-04-25] MEDS ORDERED: ACETAMINOPHEN 325 MG TAB PO ONE (07:00)
[2016-04-25] MEDS ORDERED: DIPHENHYDRAMINE 25 MG CAP PO ONE (07:00)
[2016-04-25 07:59] VITALS: BP 116/61; RESP 20
[2016-04-25] MEDS: HYDROCHLOROTHIAZIDE 25 MG TAB PO SCH (08:55)
[2016-04-25] MEDS: CYANOCOBALAMIN 1000 MCG INJ IM SCH (08:56)
[2016-04-25] MEDS: DOCUSATE SODIUM 100 MG CAP PO SCH ×2 (08:56→21:00)
[2016-04-25 09:33] LABS: EOSINOPHILS # 0.1 10^3/ul (0.0-0.5); LYMPHOCYTES # 1.6 10^3/ul (0.8-2.9); NEUTROPHIL # 0.4 10^3/ul (1.6-7.5)
--- NOTE | 2016-04-25 11:40 | PN ---
Date/Time of Note Date/Time of Note DATE: 04/25/16 TIME: 11:35 Assessment/Plan VTE Prophylaxis VTE Prophylaxis Intervention: contraindicated, SCD's VTE Contraindication Reason: thrombocytopenia Lines/Catheters [facility] Saline Lock Urinary Cath still in place: No Assessment/Plan Chief Complaint/Hosp Course Assessment/Plan: 75 yo M managed for 1. Severe Pancytopenia with lymphocytosis - ?2/2 Severe Vitamin 12 deficiency, ?cause. Patient with hyperbilirubinemia as well suggestive of hemolysis but with no reticulocytosis. BM biopsy performed, results pending - appreciate hematology input and interventions / f/u path report - for plt transfusion today as well. - per Heme Onc - TRANSFUSE IF HB FABIO THAN 8 AND PLATELET LESS THAN [id number] - maintain neutropenic precautions 2. Rectal wall thickening: likely 2/2 inflammation - Resolved on CT + contrast - appreciate GI review / planned for colonoscopy when leucopenia and thrombocytopenia improves 3. Situational Depression + Suicidal ideation : improved - apparently pt wanted to because of lack of resources, feels much better now - Supportive care 4. Hypertension: control much improved on current regimen - Continue current antihypertensives 5. Low HDL - monitor 6. Asymptomatic bradycardia - monitor 7. Mild diastolic dysfxn and elevated PA pressure on Echo Plan: Needs placement at discharge PROPHYLAXIS: SCDs / PPI Problems: Subjective 24 Hr Interval Summary Free Text/Dictation No bleeding presently, getting plt transfusion presently. Exam/Review of Systems Vital Signs Vitals Vital Signs Date Time Temp Pulse Resp B/P Pulse Ox O2 Delivery O2 Flow Rate FiO2 04/25/16 07:59 98.9 58 20 116/61 97 04/22/16 18:00 Nasal Cannula 04/22/16 16:30 2.0 Intake and Output 04/24/16 04/24/16 04/25/16 15:00 23:00 07:00 Intake Total 720 ml 120 ml Output Total 1150 ml 300 ml Balance -430 ml -180 ml Exam Constitutional: alert, oriented (x4), other (elderly male), No distress Psych: nl mood/affect, No anxiety Head: atraumatic, normocephalic Eyes: PERRL, icteric (+) ENMT: mucosa pink and moist Neck: non-tender Respiratory: clear to auscultation, diminished breath sounds Cardiovascular: regular rate and rhythm, No murmurs/extra sounds Gastrointestinal: bowel sounds, non-tender, soft Musculoskeletal: nl extremities to inspection Extremities: No edema Neurological: nl mental status, nl speech, No focal weakness Skin: other (jaundice?) Psych: nl mood/affect (looks happy), No depression, No suicidal Results Result Diagram: 04/25/16 0500 04/25/16 0500 Results 24 hrs Laboratory Tests Test 04/25/16 05:00 Alanine Aminotransferase (ALT/SGPT) 19 Albumin 3.4 Albumin/Globulin Ratio 1.13 Alkaline Phosphatase 65 Anion Gap 11 Aspartate Amino Transf (AST/SGOT) 10 L Basophils # 0.0 Basophils % 1.0 Blood Urea Nitrogen 23 H Calcium Level 8.6 Carbon Dioxide Level 34 H Chloride Level 98 Creatinine 0.72 Direct Bilirubin 0.00 Eosinophils # 0.1 Eosinophils % 4.0 Globulin 3.00 Glucose Level 120 Hematocrit 30.0 L Hemoglobin 9.9 L Indirect Bilirubin 1.8 H Lymphocytes # 1.6 Lymphocytes % 74.0 H Mean Corpuscular Hemoglobin 30.6 Mean Corpuscular Hemoglobin Concent 33.0 Mean Corpuscular Volume 92.6 Mean Platelet Volume Monocytes # 0.0 L Monocytes % 2.0 Neutrophils # 0.4 L Neutrophils % 18.0 L Platelet Count 7 #*L Potassium Level 4.2 Reactive Lymphocytes % 1.0 Red Blood Count 3.24 L Red Cell Distribution Width 17.2 H Sodium Level 139 Total Bilirubin 1.8 H Total Protein 6.4 White Blood Count 2.2 #L Medications Medications Current Medications Docusate Sodium (Colace) 100 mg BID PO Last administered on 04/25/16 08:56; Admin Dose 100 MG; Start 04/20/16 at 21:00 Ondansetron HCl (Zofran Inj) 4 mg Q6H PRN IV NAUSEA AND/OR VOMITING; Start at 15:30 Hydrochlorothiazide (Hydrochlorothiazide) 25 mg DAILY PO Last administered on 08:55; Admin Dose 25 MG; Start 04/21/16 at 11:30 Hydralazine HCl (Apresoline) 10 mg Q6H PRN IV SBP>160 Last administered on 04/22 22:13; Admin Dose 10 MG; Start 04/22/16 at 22:30 Cyanocobalamin (Vitamin B12 Inj) 1,000 mcg DAILY IM Last administered on 08:56; Admin Dose 1,000 MCG; Start 04/23/16 at 09:00 Hydralazine HCl (Apresoline) 25 mg Q12 PO Last administered on 04/25/16 08:56 ; Admin Dose 25 MG; Start 04/23/16 at 21:00 Senna (Senokot) 2 tab QHS PO Last administered on 04/23/16 22:24; Admin Dose 2 TAB; Start 04/23/16 at 21:00 Pantoprazole (Protonix Tab) 40 mg DAILY@06 PO Last administered on 04/25/16 08 :56; Admin Dose 40 MG; Start 04/25/16 at 06:00 LES ROCHE Apr 25, 2016 11:40
[2016-04-25 19:52] VITALS: BP 119/59; RESP 20
[2016-04-25] MEDS: SENNA TAB PO SCH (21:00)
--- NOTE | 2016-04-25 21:52 | CONS ---
Date/Time of Note Date/Time of Note DATE: 04/25/16 TIME: 21:49 Assessment/Plan Assessment/Plan Chief Complaint/Hosp Course SEVERE PANCYTOPENIA WITH NEUTROPENIA, MACROCYTIC ANEMIA- REQUIRING PRBC TRANSFUSION- 6U THROMBOCYTOPENIA WITHOUT EVIDENCE OF BLEEDING ASSOCIATED WITH INCREASED INDIRECT BILI, SUGGESTING INTRAVASCULAR HEMOLYSIS PLAN: COMPLETE PANCYTOPENIA W-UP [facility] SCREEN ORDERED SMEAR- NEG HEMOLYSIS W-UP- HAPTO LESS THEN 15, WILL CHECK [facility] CT ABD- NEG POST BMBX- AWAIT RESULT MONITOR BLOOD COUNT CLOSELY OBSERVE FOR BLEEDING AND HEMOLYSIS TRANSFUSE IF HB FABIO THAN 8 AND PLATELET LESS THAN 38610 Maintain neutropenic precautions PROFOUND B12 DEFICIENCY CAN EXPLAIN PANCYTOPENIA CONT B12 WBC - IMPROVING Suicidal ideation * Mental health evaluation in process SOCIAL PROBLEMS / HOMELESS Problems: Consultation Date/Type/Reason Admit Date/Time Apr 20, 2016 at 12:32 Initial Consult Date 04/21/16 Type of Consultation: HEMEON Referring Provider: WALE LORENZO 24 HR Interval Summary Free Text/Dictation all noted on b 12 platelet count was 7000 transfusion ordered no bleeding WBC - improved on vit B12 Exam/Review of Systems Vital Signs Vitals Vital Signs Date Time Temp Pulse Resp B/P Pulse Ox O2 Delivery O2 Flow Rate FiO2 04/25/16 19:52 97.9 75 20 119/59 97 04/22/16 18:00 Nasal Cannula 04/22/16 16:30 2.0 Intake and Output 04/24/16 04/24/16 04/25/16 14:59 22:59 06:59 Intake Total 720 ml 120 ml Output Total 1150 ml 300 ml Balance -430 ml -180 ml Exam Const: Pale Head: Atraumatic Eyes: Normal Conjunctiva ENT: Normal External Ears, Nose and Mouth. Neck: Full range of motion..~ No meningismus. Resp: Clear to auscultation bilaterally Cardio: Regular rate and rhythm, no murmurs Abd: Soft, non tender, non distended. Normal bowel sounds Skin: Pale with bruising the left forehead and bilateral knees Back: No midline or flank tenderness Ext: No cyanosis, or edema Neur: Awake and alert Psych: Normal Mood and Affect Results Result Diagram: 04/25/16 0500 04/25/16 0500 Results 24 hrs Laboratory Tests Test 04/25/16 05:00 Alanine Aminotransferase (ALT/SGPT) 19 Albumin 3.4 Albumin/Globulin Ratio 1.13 Alkaline Phosphatase 65 Anion Gap 11 Aspartate Amino Transf (AST/SGOT) 10 L Basophils # 0.0 Basophils % 1.0 Blood Urea Nitrogen 23 H Calcium Level 8.6 Carbon Dioxide Level 34 H Chloride Level 98 Creatinine 0.72 Direct Bilirubin 0.00 Eosinophils # 0.1 Eosinophils % 4.0 Globulin 3.00 Glucose Level 120 Hematocrit 30.0 L Hemoglobin 9.9 L Indirect Bilirubin 1.8 H Lymphocytes # 1.6 Lymphocytes % 74.0 H Mean Corpuscular Hemoglobin 30.6 Mean Corpuscular Hemoglobin Concent 33.0 Mean Corpuscular Volume 92.6 Mean Platelet Volume Monocytes # 0.0 L Monocytes % 2.0 Neutrophils # 0.4 L Neutrophils % 18.0 L Platelet Count 7 #*L Potassium Level 4.2 Reactive Lymphocytes % 1.0 Red Blood Count 3.24 L Red Cell Distribution Width 17.2 H Sodium Level 139 Total Bilirubin 1.8 H Total Protein 6.4 White Blood Count 2.2 #L Medications Medications Current Medications Docusate Sodium (Colace) 100 mg BID PO Last administered on 04/25/16 08:56; Admin Dose 100 MG; Start 04/20/16 at 21:00 Ondansetron HCl (Zofran Inj) 4 mg Q6H PRN IV NAUSEA AND/OR VOMITING; Start at 15:30 Hydrochlorothiazide (Hydrochlorothiazide) 25 mg DAILY PO Last administered on 08:55; Admin Dose 25 MG; Start 04/21/16 at 11:30 Hydralazine HCl (Apresoline) 10 mg Q6H PRN IV SBP>160 Last administered on 04/22 22:13; Admin Dose 10 MG; Start 04/22/16 at 22:30 Cyanocobalamin (Vitamin B12 Inj) 1,000 mcg DAILY IM Last administered on 08:56; Admin Dose 1,000 MCG; Start 04/23/16 at 09:00 Hydralazine HCl (Apresoline) 25 mg Q12 PO Last administered on 04/25/16 08:56 ; Admin Dose 25 MG; Start 04/23/16 at 21:00 Senna (Senokot) 2 tab QHS PO Last administered on 04/23/16 22:24; Admin Dose 2 TAB; Start 04/23/16 at 21:00 Pantoprazole (Protonix Tab) 40 mg DAILY@06 PO Last administered on 04/25/16t 08 :56; Admin Dose 40 MG; Start 04/25/16 at 06:00 THERESA KEYES MD Apr 25, 2016 21:52
[2016-04-26 05:04] LABS: ADD SCAN DIFF NO
[2016-04-26] MEDS: PANTOPRAZOLE (EC) 40 MG TAB PO SCH (05:08)
[2016-04-26 05:15] LABS: ABNORMAL IP MESSAGE 1; HEMATOCRIT 26.8 % (42.0-52.0); HEMOGLOBIN 8.6 g/dl (14.0-18.0); MEAN CORPUSCULAR HEMOGLOBIN 30.2 pg (29.0-33.0); MEAN CORPUSCULAR HGB CONC 32.1 g/dl (32.0-37.0); MEAN PLATELET VOLUME 9.3 fl (7.4-10.4); RED BLOOD COUNT 2.85 10^6/ul (4.70-6.10); RED CELL DISTRIBUTION WIDTH 16.6 % (11.5-14.5)
[2016-04-26 05:23] LABS: PLATELET COUNT 28 10^3/UL (140-415)
[2016-04-26 05:29] LABS: ALBUMIN 3.2 g/dl (3.3-4.9)
[2016-04-26 05:32] LABS: ALBUMIN/GLOBULIN RATIO 1.23; BILIRUBIN,INDIRECT 0.8 mg/dl (0-1.1); BILIRUBIN,TOTAL 0.8 mg/dl (0.2-1.3); CREATININE 0.91 mg/dl (0.61-1.24); TOTAL PROTEIN 5.8 g/dl (6.1-8.1)
[2016-04-26 05:33] LABS: CALCIUM 8.6 mg/dl (8.4-10.2)
[2016-04-26 08:00] VITALS: BP 116/61; RESP 22
[2016-04-26 08:07] LABS: EOSINOPHILS # 0.1 10^3/ul (0.0-0.5); LYMPHOCYTES # 1.3 10^3/ul (0.8-2.9); MONOCYTE # 0.3 10^3/ul (0.3-0.9); NEUTROPHIL # 0.3 10^3/ul (1.6-7.5); PLATELET ESTIMATE PLT APPEAR DECREASED
[2016-04-26] MEDS: DOCUSATE SODIUM 100 MG CAP PO SCH ×2 (08:50→21:41)
[2016-04-26] MEDS: CYANOCOBALAMIN 1000 MCG INJ IM SCH (08:51)
[2016-04-26] MEDS: HYDROCHLOROTHIAZIDE 25 MG TAB PO SCH (08:51)
--- NOTE | 2016-04-26 10:02 | PN ---
Date/Time of Note Date/Time of Note DATE: 04/26/16 TIME: 10:00 Assessment/Plan VTE Prophylaxis VTE Prophylaxis Intervention: contraindicated, SCD's VTE Contraindication Reason: thrombocytopenia Lines/Catheters IV [facility] Saline Lock Urinary Cath still in place: No Assessment/Plan Chief Complaint/Hosp Course Assessment/Plan: 75 yo M managed for 1. Severe Pancytopenia with lymphocytosis - ?2/2 Severe Vitamin 12 deficiency, vs other cause. Patient with hyperbilirubinemia as well suggestive of hemolysis but with no reticulocytosis. BM biopsy performed, results pending. - appreciate hematology input and interventions / f/u path report - per Heme Onc - TRANSFUSE IF HB FABIO THAN 8 AND PLATELET LESS THAN [id number] - maintain neutropenic precautions 2. Rectal wall thickening: likely 2/2 inflammation - Resolved on CT + contrast - appreciate GI review / planned for colonoscopy when leucopenia and thrombocytopenia improves 3. Situational Depression + Suicidal ideation : improved - apparently pt wanted to because of lack of resources, feels much better now - Supportive care 4. Hypertension: control much improved on current regimen - Continue current antihypertensives 5. Low HDL - monitor 6. Asymptomatic bradycardia - monitor 7. Mild diastolic dysfxn and elevated PA pressure on Echo Plan: Needs placement at discharge, insurance also pending. PROPHYLAXIS: SCDs / PPI Problems: Subjective 24 Hr Interval Summary Free Text/Dictation No acute events overnight, had plt transfusion yesterday. Exam/Review of Systems Vital Signs Vitals Vital Signs Date Time Temp Pulse Resp B/P Pulse Ox O2 Delivery O2 Flow Rate FiO2 04/26/16 08:00 98.3 65 22 116/61 94 04/22/16 18:00 Nasal Cannula 04/22/16 16:30 2.0 Intake and Output 04/25/16 04/25/16 04/26/16 15:00 23:00 07:00 Intake Total 1050 ml Output Total 300 ml 500 ml Balance 750 ml -500 ml Exam Constitutional: alert, oriented (x4), other (elderly male), No distress Psych: nl mood/affect, No anxiety Head: atraumatic, normocephalic Eyes: PERRL, icteric (+) ENMT: mucosa pink and moist Neck: non-tender Respiratory: clear to auscultation, diminished breath sounds Cardiovascular: regular rate and rhythm, No murmurs/extra sounds Gastrointestinal: bowel sounds, non-tender, soft Musculoskeletal: nl extremities to inspection Extremities: No edema Neurological: nl mental status, nl speech, No focal weakness Skin: other (jaundice?) Psych: nl mood/affect (looks happy), No depression, No suicidal Results Result Diagram: 04/26/1644104/26/16441 Results 24 hrs Laboratory Tests Test 04/26/16 04:42 04/26/16 07:42 Alanine Aminotransferase (ALT/SGPT) 21 Albumin 3.2 L Albumin/Globulin Ratio 1.23 Alkaline Phosphatase 67 Anion Gap 11 Aspartate Amino Transf (AST/SGOT) 13 L Basophils # 0.0 Basophils % 1.0 Blood Urea Nitrogen 27 H Calcium Level 8.6 Carbon Dioxide Level 34 H Chloride Level 100 Creatinine 0.91 Direct Bilirubin 0.00 Eosinophils # 0.1 Eosinophils % 5.0 Globulin 2.60 Glucose Level 108 Hematocrit 26.8 L Hemoglobin 8.6 L Indirect Bilirubin 0.8 Lymphocytes # 1.3 Lymphocytes % 64.0 H Mean Corpuscular Hemoglobin 30.2 Mean Corpuscular Hemoglobin Concent 32.1 Mean Corpuscular Volume 94.0 Mean Platelet Volume 9.3 # Monocytes # 0.3 Monocytes % 13.0 H Neutrophils # 0.3 L Neutrophils % 17.0 L Platelet Count 28 #*L Platelet Estimate PLT APPEAR DECREASED Potassium Level 4.0 Red Blood Count 2.85 L Red Cell Distribution Width 16.6 H Sodium Level 141 Total Bilirubin 0.8 Total Protein 5.8 L White Blood Count 2.0 L Lab Scanned Report REFERENCE LAB Medications Medications Current Medications Docusate Sodium (Colace) 100 mg BID PO Last administered on 04/26/16 08:50; Admin Dose 100 MG; Start 04/20/16 at 21:00 Ondansetron HCl (Zofran Inj) 4 mg Q6H PRN IV NAUSEA AND/OR VOMITING; Start at 15:30 Hydrochlorothiazide (Hydrochlorothiazide) 25 mg DAILY PO Last administered on 08:51; Admin Dose 25 MG; Start 04/21/16 at 11:30 Hydralazine HCl (Apresoline) 10 mg Q6H PRN IV SBP>160 Last administered on 04/22 22:13; Admin Dose 10 MG; Start 04/22/16 at 22:30 Cyanocobalamin (Vitamin B12 Inj) 1,000 mcg DAILY IM Last administered on 08:51; Admin Dose 1,000 MCG; Start 04/23/16 at 09:00 Hydralazine HCl (Apresoline) 25 mg Q12 PO Last administered on 04/26/16 08:51 ; Admin Dose 25 MG; Start 04/23/16 at 21:00 Senna (Senokot) 2 tab QHS PO Last administered on 04/23/16 22:24; Admin Dose 2 TAB; Start 04/23/16 at 21:00 Pantoprazole (Protonix Tab) 40 mg DAILY@06 PO Last administered on 04/26/16 05 :08; Admin Dose 40 MG; Start 04/25/16 at 06:00 LES ROCHE Apr 26, 2016 10:02
[2016-04-26 17:03] LABS: PSA, FREE 0.1 ng/mL
--- NOTE | 2016-04-26 18:30 | CONS ---
Date/Time of Note Date/Time of Note DATE: 04/26/16 TIME: 18:28 Assessment/Plan Assessment/Plan Chief Complaint/Hosp Course SEVERE PANCYTOPENIA WITH NEUTROPENIA, MACROCYTIC ANEMIA- REQUIRING PRBC TRANSFUSION- 6U THROMBOCYTOPENIA WITHOUT EVIDENCE OF BLEEDING ASSOCIATED WITH INCREASED INDIRECT BILI, SUGGESTING INTRAVASCULAR HEMOLYSIS PLAN: COMPLETE PANCYTOPENIA W-UP [facility] SCREEN ORDERED SMEAR- NEG HEMOLYSIS W-UP- HAPTO LESS THEN 15, WILL CHECK [facility] CT ABD- NEG POST BMBX- AWAIT RESULT MONITOR BLOOD COUNT CLOSELY OBSERVE FOR BLEEDING AND HEMOLYSIS TRANSFUSE IF HB FABIO THAN 8 AND PLATELET LESS THAN 72243 Maintain neutropenic precautions ? parvovi infection specimen will be reviewed at [facility] PROFOUND B12 DEFICIENCY CAN EXPLAIN PANCYTOPENIA CONT B12 WBC - IMPROVING Suicidal ideation * Mental health evaluation in process SOCIAL PROBLEMS / HOMELESS Problems: Consultation Date/Type/Reason Admit Date/Time Apr 20, 2016 at 12:32 Initial Consult Date 04/21/16 [facility] Referring Provider: WALE LORENZO 24 HR Interval Summary Free Text/Dictation ALL NOTED POST PLATELET TRANSFUSION D/W PATHOLOGY POS PARVOVI INFECTION TEST WILL BE REVIEWED AT [facility] Exam/Review of Systems Vital Signs Vitals Vital Signs Date Time Temp Pulse Resp B/P Pulse Ox O2 Delivery O2 Flow Rate FiO2 04/26/16 08:00 98.3 65 22 116/61 94 04/22/16 18:00 Nasal Cannula 04/22/16 16:30 2.0 Intake and Output 04/25/16 04/25/16 04/26/16 15:00 23:00 07:00 Intake Total 1050 ml Output Total 300 ml 500 ml Balance 750 ml -500 ml Exam Const: Pale Head: Atraumatic Eyes: Normal Conjunctiva ENT: Normal External Ears, Nose and Mouth. Neck: Full range of motion..~ No meningismus. Resp: Clear to auscultation bilaterally Cardio: Regular rate and rhythm, no murmurs Abd: Soft, non tender, non distended. Normal bowel sounds Skin: Pale with bruising the left forehead and bilateral knees Back: No midline or flank tenderness Ext: No cyanosis, or edema Neur: Awake and alert Psych: Normal Mood and Affect Results Result Diagram: 04/26/16 0442 04/26/16 0442 Results 24 hrs Laboratory Tests Test 04/26/16 04:42 04/26/16 07:42 Alanine Aminotransferase (ALT/SGPT) 21 Albumin 3.2 L Albumin/Globulin Ratio 1.23 Alkaline Phosphatase 67 Anion Gap 11 Aspartate Amino Transf (AST/SGOT) 13 L Basophils # 0.0 Basophils % 1.0 Blood Urea Nitrogen 27 H Calcium Level 8.6 Carbon Dioxide Level 34 H Chloride Level 100 Creatinine 0.91 Direct Bilirubin 0.00 Eosinophils # 0.1 Eosinophils % 5.0 Globulin 2.60 Glucose Level 108 Hematocrit 26.8 L Hemoglobin 8.6 L Indirect Bilirubin 0.8 Lymphocytes # 1.3 Lymphocytes % 64.0 H Mean Corpuscular Hemoglobin 30.2 Mean Corpuscular Hemoglobin Concent 32.1 Mean Corpuscular Volume 94.0 Mean Platelet Volume 9.3 # Monocytes # 0.3 Monocytes % 13.0 H Neutrophils # 0.3 L Neutrophils % 17.0 L Platelet Count 28 #*L Platelet Estimate PLT APPEAR DECREASED Potassium Level 4.0 Red Blood Count 2.85 L Red Cell Distribution Width 16.6 H Sodium Level 141 Total Bilirubin 0.8 Total Protein 5.8 L White Blood Count 2.0 L Lab Scanned Report REFERENCE LAB Medications Medications Current Medications Docusate Sodium (Colace) 100 mg BID PO Last administered on 04/26/16 08:50; Admin Dose 100 MG; Start 04/20/16 at 21:00 Ondansetron HCl (Zofran Inj) 4 mg Q6H PRN IV NAUSEA AND/OR VOMITING; Start at 15:30 Hydrochlorothiazide (Hydrochlorothiazide) 25 mg DAILY PO Last administered on 08:51; Admin Dose 25 MG; Start 04/21/16 at 11:30 Hydralazine HCl (Apresoline) 10 mg Q6H PRN IV SBP>160 Last administered on 04/22 22:13; Admin Dose 10 MG; Start 04/22/16 at 22:30 Cyanocobalamin (Vitamin B12 Inj) 1,000 mcg DAILY IM Last administered on 08:51; Admin Dose 1,000 MCG; Start 04/23/16 at 09:00 Hydralazine HCl (Apresoline) 25 mg Q12 PO Last administered on 04/26/16 08:51 ; Admin Dose 25 MG; Start 04/23/16 at 21:00 Senna (Senokot) 2 tab QHS PO Last administered on 04/23/16 22:24; Admin Dose 2 TAB; Start 04/23/16 at 21:00 Pantoprazole (Protonix Tab) 40 mg DAILY@06 PO Last administered on 04/26/16 05 :08; Admin Dose 40 MG; Start 04/25/16 at 06:00 Procedures Procedures Result Comment: PARVOVIRUS B19 ANTIBODY Results completed, see report scanned to the medical record on 04/26/16. Specimen Comment: Comments to C[employer] Quantitative Geneticist: PARVOVIRUS TITER Comments to C[employer] Quantitative Geneticist: ADD TO TODAY'S AM BLOOD DRAW THERESA KEYES MD Apr 26, 2016 18:30
[2016-04-26 19:53] VITALS: BP 109/58; RESP 20
[2016-04-26] MEDS: SENNA TAB PO SCH (21:41)
[2016-04-27] MEDS: PANTOPRAZOLE (EC) 40 MG TAB PO SCH (05:15)
[2016-04-27 05:29] LABS: ADD SCAN DIFF NO
[2016-04-27 05:44] LABS: ABNORMAL IP MESSAGE 1; HEMATOCRIT 25.1 % (42.0-52.0); HEMOGLOBIN 8.2 g/dl (14.0-18.0); MEAN CORPUSCULAR HEMOGLOBIN 30.9 pg (29.0-33.0); MEAN CORPUSCULAR HGB CONC 32.7 g/dl (32.0-37.0); MEAN CORPUSCULAR VOLUME 94.7 fl (82.0-101.0); MEAN PLATELET VOLUME 10.5 fl (7.4-10.4); RED BLOOD COUNT 2.65 10^6/ul (4.70-6.10); RED CELL DISTRIBUTION WIDTH 16.8 % (11.5-14.5); WHITE BLOOD COUNT 2.3 10^3/ul (4.8-10.8)
[2016-04-27 05:52] LABS: POTASSIUM 3.8 mmol/L (3.5-5.1)
[2016-04-27 05:54] LABS: CREATININE 0.65 mg/dl (0.61-1.24)
[2016-04-27 05:56] LABS: CALCIUM 8.5 mg/dl (8.4-10.2)
[2016-04-27 06:01] LABS: PLATELET COUNT 26 10^3/UL (140-415)
[2016-04-27 07:56] VITALS: BP 113/63; RESP 20
[2016-04-27] MEDS: HYDROCHLOROTHIAZIDE 25 MG TAB PO SCH (08:13)
[2016-04-27] MEDS: DOCUSATE SODIUM 100 MG CAP PO SCH ×2 (08:13→21:03)
[2016-04-27] MEDS: CYANOCOBALAMIN 1000 MCG INJ IM SCH (08:14)
[2016-04-27 09:28] LABS: PLATELET ESTIMATE PLT APPEAR DECREASED
--- NOTE | 2016-04-27 10:21 | PN ---
Date/Time of Note Date/Time of Note DATE: 04/27/16 TIME: 10:18 Assessment/Plan VTE Prophylaxis VTE Prophylaxis Intervention: contraindicated, SCD's VTE Contraindication Reason: thrombocytopenia Lines/Catheters IV [facility] Saline Lock Urinary Cath still in place: No Assessment/Plan Chief Complaint/Hosp Course Assessment/Plan: 75 yo M managed for 1. Severe Pancytopenia with lymphocytosis - ?2/2 Severe Vitamin 12 deficiency, vs other cause. Patient with hyperbilirubinemia as well suggestive of hemolysis but with no reticulocytosis. BM biopsy performed, results pending. - appreciate hematology input and interventions / f/u path report - per Heme Onc - TRANSFUSE IF HB FABIO THAN 8 AND PLATELET LESS THAN 83121 - maintain neutropenic precautions 2. Rectal wall thickening: likely 2/2 inflammation - Resolved on CT + contrast - appreciate GI review / planned for colonoscopy when leucopenia and thrombocytopenia improves 3. Situational Depression + Suicidal ideation : improved - apparently pt wanted to because of lack of resources, feels much better now - Supportive care 4. Hypertension: control much improved on current regimen - Continue current antihypertensives 5. Low HDL - monitor 6. Asymptomatic bradycardia - monitor 7. Mild diastolic dysfxn and elevated PA pressure on Echo Plan: Needs placement at discharge, insurance also pending. PROPHYLAXIS: SCDs / PPI Problems: Subjective 24 Hr Interval Summary Free Text/Dictation No acute events overnight. Exam/Review of Systems Vital Signs Vitals Vital Signs Date Time Temp Pulse Resp B/P Pulse Ox O2 Delivery O2 Flow Rate FiO2 04/27/16 07:56 98.9 73 20 113/63 96 Intake and Output 04/26/16 04/26/16 04/27/16 15:00 23:00 07:00 Intake Total 360 ml Output Total 450 ml Balance -90 ml Exam Constitutional: alert, oriented (x4), other (elderly male), No distress Psych: nl mood/affect, No anxiety Head: atraumatic, normocephalic Eyes: PERRL, icteric (+) ENMT: mucosa pink and moist Neck: non-tender Respiratory: clear to auscultation, diminished breath sounds Cardiovascular: regular rate and rhythm, No murmurs/extra sounds Gastrointestinal: bowel sounds, non-tender, soft Musculoskeletal: nl extremities to inspection Extremities: No edema Neurological: nl mental status, nl speech, No focal weakness Skin: other (jaundice?) Psych: nl mood/affect Results Result Diagram: 04/27/16 0440 04/27/16 0440 Results 24 hrs Laboratory Tests Test 04/27/16 04:40 Anion Gap 12 Basophils # 1.0 H Blood Urea Nitrogen 16 # Calcium Level 8.5 Carbon Dioxide Level 33 H Chloride Level 100 Creatinine 0.65 Eosinophils # 5.0 H Glucose Level 107 Hematocrit 25.1 L Hemoglobin 8.2 L Lymphocytes # 65.0 H Lymphocytes % Mean Corpuscular Hemoglobin 30.9 Mean Corpuscular Hemoglobin Concent 32.7 Mean Corpuscular Volume 94.7 Mean Platelet Volume 10.5 H Monocytes # 17.0 H Monocytes % Neutrophils # 12.0 H Neutrophils % Platelet Count 26 *L Platelet Estimate PLT APPEAR DECREASED Potassium Level 3.8 Red Blood Count 2.65 L Red Cell Distribution Width 16.8 H Sodium Level 141 White Blood Count 2.3 L Medications Medications Current Medications Docusate Sodium (Colace) 100 mg BID PO Last administered on 04/27/16 08:13; Admin Dose 100 MG; Start 04/20/16 at 21:00 Ondansetron HCl (Zofran Inj) 4 mg Q6H PRN IV NAUSEA AND/OR VOMITING; Start at 15:30 Hydrochlorothiazide (Hydrochlorothiazide) 25 mg DAILY PO Last administered on 08:13; Admin Dose 25 MG; Start 04/21/16 at 11:30 Hydralazine HCl (Apresoline) 10 mg Q6H PRN IV SBP>160 Last administered on 04/22 22:13; Admin Dose 10 MG; Start 04/22/16 at 22:30 Cyanocobalamin (Vitamin B12 Inj) 1,000 mcg DAILY IM Last administered on 08:14; Admin Dose 1,000 MCG; Start 04/23/16 at 09:00 Hydralazine HCl (Apresoline) 25 mg Q12 PO Last administered on 04/27/16 08:13; Admin Dose 25 MG; Start 04/23/16 at 21:00 Senna (Senokot) 2 tab QHS PO Last administered on 04/26/16 21:41; Admin Dose 2 TAB; Start 04/23/16 at 21:00 Pantoprazole (Protonix Tab) 40 mg DAILY@06 PO Last administered on 04/27/16t 05: 15; Admin Dose 40 MG; Start 04/25/16 at 06:00 LES ROCHE Apr 27, 2016 10:21
[2016-04-27 19:21] VITALS: BP 128/60; RESP 18
--- NOTE | 2016-04-27 20:24 | CONS ---
Date/Time of Note Date/Time of Note DATE: 04/27/16 TIME: 20:22 Assessment/Plan Assessment/Plan Chief Complaint/Hosp Course SEVERE PANCYTOPENIA WITH NEUTROPENIA, MACROCYTIC ANEMIA- REQUIRING PRBC TRANSFUSION- 6U THROMBOCYTOPENIA WITHOUT EVIDENCE OF BLEEDING ASSOCIATED WITH INCREASED INDIRECT BILI, SUGGESTING INTRAVASCULAR HEMOLYSIS PLAN: COMPLETE PANCYTOPENIA W-UP [facility] SCREEN ORDERED SMEAR- NEG HEMOLYSIS W-UP- HAPTO LESS THEN 15, LORENZO- NEG CT ABD- NEG POST BMBX- AWAIT RESULT MONITOR BLOOD COUNT CLOSELY OBSERVE FOR BLEEDING AND HEMOLYSIS TRANSFUSE IF HB FABIO THAN 8 AND PLATELET LESS THAN 95472 Maintain neutropenic precautions ? parvovi infection specimen will be reviewed at [facility] PROFOUND B12 DEFICIENCY CAN EXPLAIN PANCYTOPENIA CONT B12 WBC - IMPROVING Suicidal ideation * Mental health evaluation in process SOCIAL PROBLEMS / HOMELESS Problems: Consultation Date/Type/Reason Admit Date/Time Apr 20, 2016 at 12:32 Initial Consult Date 04/21/16 Type of Consultation: HEMEON Referring Provider: WALE LORENZO 24 HR Interval Summary Free Text/Dictation ALL NOTED NO NEW EVENTS NO BLEEDING Exam/Review of Systems Vital Signs Vitals Vital Signs Date Time Temp Pulse Resp B/P Pulse Ox O2 Delivery O2 Flow Rate FiO2 04/27/16 19:21 98.7 77 18 128/60 96 Intake and Output 04/26/16 04/26/16 04/27/16 15:00 23:00 07:00 Intake Total 360 ml Output Total 450 ml Balance -90 ml Exam Const: Pale Head: Atraumatic Eyes: Normal Conjunctiva ENT: Normal External Ears, Nose and Mouth. Neck: Full range of motion..~ No meningismus. Resp: Clear to auscultation bilaterally Cardio: Regular rate and rhythm, no murmurs Abd: Soft, non tender, non distended. Normal bowel sounds Skin: Pale with bruising the left forehead and bilateral knees Back: No midline or flank tenderness Ext: No cyanosis, or edema Neur: Awake and alert Psych: Normal Mood and Affect Results Result Diagram: 04/27/160 04/27/160 Results 24 hrs Laboratory Tests Test 04/27/16 04:40 Anion Gap 12 Basophils # 1.0 H Blood Urea Nitrogen 16 # Calcium Level 8.5 Carbon Dioxide Level 33 H Chloride Level 100 Creatinine 0.65 Eosinophils # 5.0 H Glucose Level 107 Hematocrit 25.1 L Hemoglobin 8.2 L Lymphocytes # 65.0 H Lymphocytes % Mean Corpuscular Hemoglobin 30.9 Mean Corpuscular Hemoglobin Concent 32.7 Mean Corpuscular Volume 94.7 Mean Platelet Volume 10.5 H Monocytes # 17.0 H Monocytes % Neutrophils # 12.0 H Neutrophils % Platelet Count 26 *L Platelet Estimate PLT APPEAR DECREASED Potassium Level 3.8 Red Blood Count 2.65 L Red Cell Distribution Width 16.8 H Sodium Level 141 White Blood Count 2.3 L Medications Medications Current Medications Docusate Sodium (Colace) 100 mg BID PO Last administered on 04/27/16 08:13; Admin Dose 100 MG; Start 04/20/16 at 21:00 Ondansetron HCl (Zofran Inj) 4 mg Q6H PRN IV NAUSEA AND/OR VOMITING; Start at 15:30 Hydrochlorothiazide (Hydrochlorothiazide) 25 mg DAILY PO Last administered on 08:13; Admin Dose 25 MG; Start 04/21/16 at 11:30 Hydralazine HCl (Apresoline) 10 mg Q6H PRN IV SBP>160 Last administered on 04/22 22:13; Admin Dose 10 MG; Start 04/22/16 at 22:30 Cyanocobalamin (Vitamin B12 Inj) 1,000 mcg DAILY IM Last administered on 08:14; Admin Dose 1,000 MCG; Start 04/23/16 at 09:00 Hydralazine HCl (Apresoline) 25 mg Q12 PO Last administered on 04/27/16 08:13; Admin Dose 25 MG; Start 04/23/16 at 21:00 Senna (Senokot) 2 tab QHS PO Last administered on 04/26/16 21:41; Admin Dose 2 TAB; Start 04/23/16 at 21:00 Pantoprazole (Protonix Tab) 40 mg DAILY@06 PO Last administered on 04/27/16 05: 15; Admin Dose 40 MG; Start 04/25/16 at 06:00 THERESA KEYES MD Apr 27, 2016 20:24
[2016-04-27] MEDS: SENNA TAB PO SCH (21:03)
[2016-04-28 05:31] LABS: ADD SCAN DIFF NO
[2016-04-28] MEDS: PANTOPRAZOLE (EC) 40 MG TAB PO SCH (05:36)
[2016-04-28 05:38] LABS: ABNORMAL IP MESSAGE 1; HEMATOCRIT 25.7 % (42.0-52.0); HEMOGLOBIN 8.3 g/dl (14.0-18.0); MEAN CORPUSCULAR HEMOGLOBIN 30.9 pg (29.0-33.0); MEAN CORPUSCULAR HGB CONC 32.3 g/dl (32.0-37.0); MEAN CORPUSCULAR VOLUME 95.5 fl (82.0-101.0); MEAN PLATELET VOLUME 12.4 fl (7.4-10.4); PLATELET COUNT 38 10^3/UL (140-415); RED BLOOD COUNT 2.69 10^6/ul (4.70-6.10); RED CELL DISTRIBUTION WIDTH 17.2 % (11.5-14.5); WHITE BLOOD COUNT 3.4 10^3/ul (4.8-10.8)
[2016-04-28 05:44] LABS: POTASSIUM 3.9 mmol/L (3.5-5.1)
[2016-04-28 05:47] LABS: CREATININE 0.73 mg/dl (0.61-1.24)
[2016-04-28 05:48] LABS: CALCIUM 8.3 mg/dl (8.4-10.2)
[2016-04-28 07:38] VITALS: BP 130/62; RESP 14
[2016-04-28] MEDS: HYDROCHLOROTHIAZIDE 25 MG TAB PO SCH (08:50)
[2016-04-28] MEDS: DOCUSATE SODIUM 100 MG CAP PO SCH ×2 (08:50→21:24)
[2016-04-28] MEDS: CYANOCOBALAMIN 1000 MCG INJ IM SCH (08:51)
--- NOTE | 2016-04-28 09:23 | PN ---
Date/Time of Note Date/Time of Note DATE: 04/28/16 TIME: 09:20 Assessment/Plan VTE Prophylaxis VTE Prophylaxis Intervention: contraindicated, SCD's VTE Contraindication Reason: thrombocytopenia Lines/Catheters IV [facility]from [facility] Saline Lock Urinary Cath still in place: No Assessment/Plan Chief Complaint/Hosp Course Assessment/Plan: 75 yo M managed for 1. Severe Pancytopenia with lymphocytosis - ?2/2 Severe Vitamin 12 deficiency, vs other cause. Patient with hyperbilirubinemia as well suggestive of hemolysis but with no reticulocytosis. BM biopsy performed, results pending. - appreciate hematology input and interventions / f/u path report - per Heme Onc - TRANSFUSE IF HB FABIO THAN 8 AND PLATELET LESS THAN 58017 - maintain neutropenic precautions 2. Rectal wall thickening: likely 2/2 inflammation - Resolved on CT + contrast - appreciate GI review / planned for colonoscopy when leucopenia and thrombocytopenia improves 3. Situational Depression + Suicidal ideation : improved - apparently pt wanted to because of lack of resources, feels much better now - Supportive care 4. Hypertension: control much improved on current regimen - Continue current antihypertensives 5. Low HDL - monitor 6. Asymptomatic bradycardia - monitor 7. Mild diastolic dysfxn and elevated PA pressure on Echo 8. urinary retention - improved after straight cath - monitor, consider consult if reoccurs. Plan: Needs placement at discharge, insurance also pending. PROPHYLAXIS: SCDs / PPI Problems: Subjective 24 Hr Interval Summary Free Text/Dictation Pt had some abd pressure yesterday sec to residual urine in bladder, improved after straight cath performed. Exam/Review of Systems Vital Signs Vitals Vital Signs Date Time Temp Pulse Resp B/P Pulse Ox O2 Delivery O2 Flow Rate FiO2 04/28/16 07:38 98.7 67 14 130/62 98 Intake and Output 04/27/16 04/27/16 04/28/16 15:00 23:00 07:00 Intake Total 800 ml 300 ml Output Total 651 ml 500 ml Balance 149 ml -200 ml Exam Constitutional: alert, oriented (x4), other (elderly male), No distress Psych: nl mood/affect, No anxiety Head: atraumatic, normocephalic Eyes: PERRL, icteric (+) ENMT: mucosa pink and moist Neck: non-tender Respiratory: clear to auscultation, diminished breath sounds Cardiovascular: regular rate and rhythm, No murmurs/extra sounds Gastrointestinal: bowel sounds, non-tender, soft Musculoskeletal: nl extremities to inspection Extremities: No edema Neurological: nl mental status, nl speech, No focal weakness Skin: other (jaundice?) Psych: nl mood/affect Results Result Diagram: 04/28/16 0500 04/28/16 0500 Results 24 hrs Laboratory Tests Test 04/28/16 05:00 Anion Gap 13 Blood Urea Nitrogen 18 Calcium Level 8.3 L Carbon Dioxide Level 32 H Chloride Level 100 Creatinine 0.73 Glucose Level 131 Hematocrit 25.7 L Hemoglobin 8.3 L Lymphocytes # Lymphocytes % Mean Corpuscular Hemoglobin 30.9 Mean Corpuscular Hemoglobin Concent 32.3 Mean Corpuscular Volume 95.5 Mean Platelet Volume 12.4 H Monocytes # Monocytes % Neutrophils # Neutrophils % Platelet Count 38 #L Potassium Level 3.9 Red Blood Count 2.69 L Red Cell Distribution Width 17.2 H Sodium Level 141 White Blood Count 3.4 #L Medications Medications Current Medications Docusate Sodium (Colace) 100 mg BID PO Last administered on 04/28/16 08:50; Admin Dose 100 MG; Start 04/20/16 at 21:00 Ondansetron HCl (Zofran Inj) 4 mg Q6H PRN IV NAUSEA AND/OR VOMITING; Start at 15:30 Hydrochlorothiazide (Hydrochlorothiazide) 25 mg DAILY PO Last administered on 08:50; Admin Dose 25 MG; Start 04/21/16 at 11:30 Hydralazine HCl (Apresoline) 10 mg Q6H PRN IV SBP>160 Last administered on 04/22 22:13; Admin Dose 10 MG; Start 04/22/16 at 22:30 Cyanocobalamin (Vitamin B12 Inj) 1,000 mcg DAILY IM Last administered on 08:51; Admin Dose 1,000 MCG; Start 04/23/16 at 09:00 Hydralazine HCl (Apresoline) 25 mg Q12 PO Last administered on 04/28/16 08:51; Admin Dose 25 MG; Start 04/23/16 at 21:00 Senna (Senokot) 2 tab QHS PO Last administered on 04/27/16 21:03; Admin Dose 2 TAB; Start 04/23/16 at 21:00 Pantoprazole (Protonix Tab) 40 mg DAILY@06 PO Last administered on 04/28/16t 05: 36; Admin Dose 40 MG; Start 04/25/16 at 06:00 LES ROCHE Apr 28, 2016 09:23
[2016-04-28 10:14] LABS: PLATELET ESTIMATE PLT APPEAR DECREASED
[2016-04-28 10:39] LABS: % CRYOCRIT NONE DETECTED (NONE DETECTED)
[2016-04-28] MEDS: TAMSULOSIN (SR) 0.4 MG CAP PO SCH ×2 (16:15→21:24)
--- NOTE | 2016-04-28 18:29 | CONS ---
Date/Time of Note Date/Time of Note DATE: 04/28/16 TIME: 18:27 Assessment/Plan Assessment/Plan Chief Complaint/Hosp Course SEVERE PANCYTOPENIA WITH NEUTROPENIA, MACROCYTIC ANEMIA- REQUIRING PRBC TRANSFUSION- 6U THROMBOCYTOPENIA WITHOUT EVIDENCE OF BLEEDING ASSOCIATED WITH INCREASED INDIRECT BILI, SUGGESTING INTRAVASCULAR HEMOLYSIS PLAN: COMPLETE PANCYTOPENIA W-UP [facility] SCREEN - NEG SMEAR- NEG HEMOLYSIS W-UP- HAPTO LESS THEN 15, LORENZO- NEG CT ABD- NEG POST BMBX- AWAIT RESULT MONITOR BLOOD COUNT CLOSELY OBSERVE FOR BLEEDING AND HEMOLYSIS TRANSFUSE IF HB FABIO THAN 8 AND PLATELET LESS THAN 02105 DC neutropenic precautions COUNT IMPROVED ON VIT B12 ? parvovi infection specimen will be reviewed at [facility] PROFOUND B12 DEFICIENCY CAN EXPLAIN PANCYTOPENIA CONT B12 COUNT - IMPROVING HEP B (+) Suicidal ideation * Mental health evaluation in process SOCIAL PROBLEMS / HOMELESS Problems: Consultation Date/Type/Reason Admit Date/Time Apr 20, 2016 at 12:32 Initial Consult Date 04/21/16 Type of Consultation: HEMEONC Referring Provider: WALE LORENZO 24 HR Interval Summary Free Text/Dictation ALL NOTED COUNT IMPROVING ON B12 Exam/Review of Systems Vital Signs Vitals Vital Signs Date Time Temp Pulse Resp B/P Pulse Ox O2 Delivery O2 Flow Rate FiO2 04/28/16 07:38 98.7 67 14 130/62 98 Intake and Output 04/27/16 04/27/16 04/28/16 15:00 23:00 07:00 Intake Total 800 ml 300 ml Output Total 651 ml 500 ml Balance 149 ml -200 ml Exam Const: Pale Head: Atraumatic Eyes: Normal Conjunctiva ENT: Normal External Ears, Nose and Mouth. Neck: Full range of motion..~ No meningismus. Resp: Clear to auscultation bilaterally Cardio: Regular rate and rhythm, no murmurs Abd: Soft, non tender, non distended. Normal bowel sounds Skin: Pale with bruising the left forehead and bilateral knees Back: No midline or flank tenderness Ext: No cyanosis, or edema Neur: Awake and alert Psych: Normal Mood and Affect Results Result Diagram: 04/28/16 0500 04/28/16 0500 Results 24 hrs Laboratory Tests Test 04/28/16 05:00 04/28/16 10:45 Anion Gap 13 Band Neutrophils % Blood Urea Nitrogen 18 Calcium Level 8.3 L Carbon Dioxide Level 32 H Chloride Level 100 Creatinine 0.73 Eosinophils % 4.0 Glucose Level 131 Hematocrit 25.7 L Hemoglobin 8.3 L Lymphocytes # Lymphocytes % 58.0 H Mean Corpuscular Hemoglobin 30.9 Mean Corpuscular Hemoglobin Concent 32.3 Mean Corpuscular Volume 95.5 Mean Platelet Volume 12.4 H Monocytes # Monocytes % 20.0 H Myelocytes % 1.0 H Neutrophils # Neutrophils % 17.0 L Platelet Count 38 #L Platelet Estimate PLT APPEAR DECREASED Potassium Level 3.9 Red Blood Count 2.69 L Red Cell Distribution Width 17.2 H Sodium Level 141 White Blood Count 3.4 #L Lab Scanned Report REFERENCE LAB Medications Medications Current Medications Docusate Sodium (Colace) 100 mg BID PO Last administered on 04/28/16 08:50; Admin Dose 100 MG; Start 04/20/16 at 21:00 Ondansetron HCl (Zofran Inj) 4 mg Q6H PRN IV NAUSEA AND/OR VOMITING; Start at 15:30 Hydrochlorothiazide (Hydrochlorothiazide) 25 mg DAILY PO Last administered on 08:50; Admin Dose 25 MG; Start 04/21/16 at 11:30 Hydralazine HCl (Apresoline) 10 mg Q6H PRN IV SBP>160 Last administered on 04/22 22:13; Admin Dose 10 MG; Start 04/22/16 at 22:30 Cyanocobalamin (Vitamin B12 Inj) 1,000 mcg DAILY IM Last administered on 08:51; Admin Dose 1,000 MCG; Start 04/23/16 at 09:00 Hydralazine HCl (Apresoline) 25 mg Q12 PO Last administered on 04/28/16 08:51; Admin Dose 25 MG; Start 04/23/16 at 21:00 Senna (Senokot) 2 tab QHS PO Last administered on 04/27/16 21:03; Admin Dose 2 TAB; Start 04/23/16 at 21:00 Pantoprazole (Protonix Tab) 40 mg DAILY@06 PO Last administered on 04/28/16 05: 36; Admin Dose 40 MG; Start 04/25/16 at 06:00 Tamsulosin HCl (Flomax) 0.4 mg HS PO Last administered on 3/2/17at 16:15; Admin Dose 0.4 MG; Start 04/28/16 at 14:30 THERESA KEYES MD Apr 28, 2016 18:29
[2016-04-28 20:11] VITALS: BP 149/65; RESP 20
[2016-04-28] MEDS: SENNA TAB PO SCH (21:24)
[2016-04-29] MEDS: PANTOPRAZOLE (EC) 40 MG TAB PO SCH (05:33)
[2016-04-29 06:25] LABS: ADD SCAN DIFF NO
[2016-04-29 06:28] LABS: ABNORMAL IP MESSAGE 1; BASOPHILS % 0.1 % (0.0-2.0); EOSINOPHILS % 0.2 % (0.0-7.0); HEMATOCRIT 26.9 % (42.0-52.0); HEMOGLOBIN 8.4 g/dl (14.0-18.0); LYMPHOCYTES % 10.6 % (15.0-51.0); MEAN CORPUSCULAR HEMOGLOBIN 30.3 pg (29.0-33.0); MEAN CORPUSCULAR HGB CONC 31.2 g/dl (32.0-37.0); MEAN CORPUSCULAR VOLUME 97.1 fl (82.0-101.0); MEAN PLATELET VOLUME 10.6 fl (7.4-10.4); MONOCYTE # 1.4 10^3/ul (0.3-0.9); MONOCYTES % 14.8 % (0.0-11.0); NEUTROPHIL # 7.1 10^3/ul (1.6-7.5); NEUTROPHILS % 73.3 % (39.0-77.0); PLATELET COUNT 92 10^3/UL (140-415); RED BLOOD COUNT 2.77 10^6/ul (4.70-6.10); RED CELL DISTRIBUTION WIDTH 18.1 % (11.5-14.5); WHITE BLOOD COUNT 9.7 10^3/ul (4.8-10.8)
[2016-04-29 06:54] LABS: POTASSIUM 4.1 mmol/L (3.5-5.1)
[2016-04-29 06:56] LABS: CREATININE 0.75 mg/dl (0.61-1.24)
[2016-04-29 06:57] LABS: CALCIUM 8.4 mg/dl (8.4-10.2)
[2016-04-29 07:57] VITALS: BP 119/59; RESP 18
[2016-04-29] MEDS: HYDROCHLOROTHIAZIDE 25 MG TAB PO SCH (08:31)
[2016-04-29] MEDS: DOCUSATE SODIUM 100 MG CAP PO SCH ×2 (08:32→21:44)
[2016-04-29] MEDS: CYANOCOBALAMIN 1000 MCG INJ IM SCH (08:32)
--- NOTE | 2016-04-29 10:06 | PN ---
Date/Time of Note Date/Time of Note DATE: 04/29/16 TIME: 10:01 Assessment/Plan VTE Prophylaxis VTE Prophylaxis Intervention: contraindicated, SCD's VTE Contraindication Reason: thrombocytopenia Lines/Catheters IV Catheter Type (from Nrs): Saline Lock Urinary Cath still in place: Yes Reason Cath still needed: urinary retention Assessment/Plan Chief Complaint/Hosp Course Assessment/Plan: 75 yo M managed for 1. Severe Pancytopenia with lymphocytosis - ?2/2 Severe Vitamin 12 deficiency, vs other cause. Patient with hyperbilirubinemia as well suggestive of hemolysis but with no reticulocytosis. BM biopsy performed, results show possible MDS sec to parvovirus? - appreciate hematology input and interventions / discuss path report, [facility] may also look at this as well - per Heme Onc - TRANSFUSE IF HB FABIO THAN 8 AND PLATELET LESS THAN 05640 ( presently 7 ->->->38->92) - maintain neutropenic precautions 2. Rectal wall thickening: likely 2/2 inflammation - Resolved on CT + contrast - appreciate GI review / planned for colonoscopy when leucopenia and thrombocytopenia improves 3. Situational Depression + Suicidal ideation : improved - apparently pt wanted to because of lack of resources, feels much better now - Supportive care 4. Hypertension: control much improved on current regimen - Continue current antihypertensives 5. Low HDL - monitor 6. Asymptomatic bradycardia - monitor 7. Mild diastolic dysfxn and elevated PA pressure on Echo 8. urinary retention - improved after Flomax and Campuzano started yesterday - monitor UO, awaiting consult as well. Plan: Needs placement at discharge, insurance also pending. PROPHYLAXIS: SCDs / PPI Problems: Subjective 24 Hr Interval Summary Free Text/Dictation Pt had urinary retention yesterday, Campuzano inserted. Path report back as well for BM biopsy (MDS?, parvovirus?)) Exam/Review of Systems Vital Signs Vitals Vital Signs Date Time Temp Pulse Resp B/P Pulse Ox O2 Delivery O2 Flow Rate FiO2 04/29/16 07:57 100.5 91 18 119/59 95 Intake and Output 04/28/16 04/28/16 04/29/16 15:00 23:00 07:00 Intake Total 840 ml 240 ml Output Total 600 ml 650 ml Balance 240 ml -410 ml Exam Constitutional: alert, oriented (x4), other (elderly male), No distress Psych: nl mood/affect, No anxiety Head: atraumatic, normocephalic Eyes: PERRL, less icteric (+) ENMT: mucosa pink and moist Neck: non-tender Respiratory: clear to auscultation, diminished breath sounds Cardiovascular: regular rate and rhythm, No murmurs/extra sounds Gastrointestinal: bowel sounds, non-tender, soft Musculoskeletal: nl extremities to inspection Extremities: No edema Neurological: nl mental status, nl speech, No focal weakness Skin: other (jaundice?) Psych: nl mood/affect Results Result Diagram: 04/29/16 0540 04/29/16 0540 Results 24 hrs Laboratory Tests Test 04/28/16 10:45 04/29/16 05:40 Lab Scanned Report REFERENCE LAB Anion Gap 15 Basophils # 0.0 Basophils % 0.1 Blood Urea Nitrogen 21 H Calcium Level 8.4 Carbon Dioxide Level 30 Chloride Level 99 Creatinine 0.75 Eosinophils # 0.0 Eosinophils % 0.2 Glucose Level 130 Hematocrit 26.9 L Hemoglobin 8.4 L Lymphocytes # 1.0 Lymphocytes % 10.6 L Mean Corpuscular Hemoglobin 30.3 Mean Corpuscular Hemoglobin Concent 31.2 L Mean Corpuscular Volume 97.1 Mean Platelet Volume 10.6 H Monocytes # 1.4 H Monocytes % 14.8 H Neutrophils # 7.1 Neutrophils % 73.3 Nucleated Red Blood Cells # 0.0 Nucleated Red Blood Cells % 0.0 Platelet Count 92 #L Potassium Level 4.1 Red Blood Count 2.77 L Red Cell Distribution Width 18.1 H Sodium Level 140 White Blood Count 9.7 # Medications Medications Current Medications Docusate Sodium (Colace) 100 mg BID PO Last administered on 04/29/16 08:32; Admin Dose 100 MG; Start 04/20/16 at 21:00 Ondansetron HCl (Zofran Inj) 4 mg Q6H PRN IV NAUSEA AND/OR VOMITING; Start at 15:30 Hydrochlorothiazide (Hydrochlorothiazide) 25 mg DAILY PO Last administered on 08:31; Admin Dose 25 MG; Start 04/21/16 at 11:30 Hydralazine HCl (Apresoline) 10 mg Q6H PRN IV SBP>160 Last administered on 04/22 22:13; Admin Dose 10 MG; Start 04/22/16 at 22:30 Cyanocobalamin (Vitamin B12 Inj) 1,000 mcg DAILY IM Last administered on 08:32; Admin Dose 1,000 MCG; Start 04/23/16 at 09:00 Hydralazine HCl (Apresoline) 25 mg Q12 PO Last administered on 04/29/16 08:31; Admin Dose 25 MG; Start 04/23/16 at 21:00 Senna (Senokot) 2 tab QHS PO Last administered on 04/28/16 21:24; Admin Dose 2 TAB; Start 04/23/16 at 21:00 Pantoprazole (Protonix Tab) 40 mg DAILY@06 PO Last administered on 04/29/16 05: 33; Admin Dose 40 MG; Start 04/25/16 at 06:00 Tamsulosin HCl (Flomax) 0.4 mg HS PO Last administered on 04/28/16 21:24; Admin Dose 0.4 MG; Start 04/28/16 at 14:30 LES ROCHE Apr 29, 2016 10:06
--- NOTE | 2016-04-29 13:56 | CONS ---
Date/Time of Note Date/Time of Note DATE: 04/29/16 TIME: 13:55 Assessment/Plan Assessment/Plan Chief Complaint/Hosp Course SEVERE PANCYTOPENIA WITH NEUTROPENIA, MACROCYTIC ANEMIA- REQUIRING PRBC TRANSFUSION- 6U THROMBOCYTOPENIA WITHOUT EVIDENCE OF BLEEDING ASSOCIATED WITH INCREASED INDIRECT BILI, SUGGESTING INTRAVASCULAR HEMOLYSIS PLAN: COMPLETE PANCYTOPENIA W-UP [facility] SCREEN - NEG SMEAR- NEG HEMOLYSIS W-UP- HAPTO LESS THEN 15, LORENZO- NEG CT ABD- NEG POST BMBX- AWAIT RESULT MONITOR BLOOD COUNT CLOSELY OBSERVE FOR BLEEDING AND HEMOLYSIS TRANSFUSE IF HB FABIO THAN 8 AND PLATELET LESS THAN 08081 DC neutropenic precautions COUNT IMPROVED ON VIT B12 ? parvovi infection specimen will be reviewed at [facility] PROFOUND B12 DEFICIENCY CAN EXPLAIN PANCYTOPENIA CONT B12 COUNT - IMPROVING HEP B (+) Suicidal ideation * Mental health evaluation in process SOCIAL PROBLEMS / HOMELESS Problems: Consultation Date/Type/Reason Admit Date/Time Apr 20, 2016 at 12:32 Initial Consult Date 04/21/16 Type of Consultation: HEMEONC Referring Provider: WALE LORENZO 24 HR Interval Summary Free Text/Dictation all noted count is recovering on vit B12 Exam/Review of Systems Vital Signs Vitals Vital Signs Date Time Temp Pulse Resp B/P Pulse Ox O2 Delivery O2 Flow Rate FiO2 04/29/16 07:57 100.5 91 18 119/59 95 Intake and Output 04/28/16 04/28/16 04/29/16 15:00 23:00 07:00 Intake Total 840 ml 240 ml Output Total 600 ml 650 ml Balance 240 ml -410 ml Exam Const: Pale Head: Atraumatic Eyes: Normal Conjunctiva ENT: Normal External Ears, Nose and Mouth. Neck: Full range of motion..~ No meningismus. Resp: Clear to auscultation bilaterally Cardio: Regular rate and rhythm, no murmurs Abd: Soft, non tender, non distended. Normal bowel sounds Skin: Pale with bruising the left forehead and bilateral knees Back: No midline or flank tenderness Ext: No cyanosis, or edema Neur: Awake and alert Psych: Normal Mood and Affect Results Result Diagram: 04/29/16 0540 04/29/16 0540 Results 24 hrs Laboratory Tests Test 04/29/16 05:40 Anion Gap 15 Basophils # 0.0 Basophils % 0.1 Blood Urea Nitrogen 21 H Calcium Level 8.4 Carbon Dioxide Level 30 Chloride Level 99 Creatinine 0.75 Eosinophils # 0.0 Eosinophils % 0.2 Glucose Level 130 Hematocrit 26.9 L Hemoglobin 8.4 L Lymphocytes # 1.0 Lymphocytes % 10.6 L Mean Corpuscular Hemoglobin 30.3 Mean Corpuscular Hemoglobin Concent 31.2 L Mean Corpuscular Volume 97.1 Mean Platelet Volume 10.6 H Monocytes # 1.4 H Monocytes % 14.8 H Neutrophils # 7.1 Neutrophils % 73.3 Nucleated Red Blood Cells # 0.0 Nucleated Red Blood Cells % 0.0 Platelet Count 92 #L Potassium Level 4.1 Red Blood Count 2.77 L Red Cell Distribution Width 18.1 H Sodium Level 140 White Blood Count 9.7 # Medications Medications Current Medications Docusate Sodium (Colace) 100 mg BID PO Last administered on 04/29/16 08:32; Admin Dose 100 MG; Start 04/20/16 at 21:00 Ondansetron HCl (Zofran Inj) 4 mg Q6H PRN IV NAUSEA AND/OR VOMITING; Start at 15:30 Hydrochlorothiazide (Hydrochlorothiazide) 25 mg DAILY PO Last administered on 08:31; Admin Dose 25 MG; Start 04/21/16 at 11:30 Hydralazine HCl (Apresoline) 10 mg Q6H PRN IV SBP>160 Last administered on 04/22 22:13; Admin Dose 10 MG; Start 04/22/16 at 22:30 Cyanocobalamin (Vitamin B12 Inj) 1,000 mcg DAILY IM Last administered on 08:32; Admin Dose 1,000 MCG; Start 04/23/16 at 09:00 Hydralazine HCl (Apresoline) 25 mg Q12 PO Last administered on 04/29/16 08:31; Admin Dose 25 MG; Start 04/23/16 at 21:00 Senna (Senokot) 2 tab QHS PO Last administered on 04/28/16 21:24; Admin Dose 2 TAB; Start 04/23/16 at 21:00 Pantoprazole (Protonix Tab) 40 mg DAILY@06 PO Last administered on 04/29/16 05: 33; Admin Dose 40 MG; Start 04/25/16 at 06:00 Tamsulosin HCl (Flomax) 0.4 mg HS PO Last administered on 04/28/16t 21:24; Admin Dose 0.4 MG; Start 04/28/16 at 14:30 THERESA KEYES MD Apr 29, 2016 13:56
--- NOTE | 2016-04-29 17:47 | CONS ---
Date/Time of Note Date/Time of Note DATE: 04/29/16 TIME: 17:40 Assessment/Plan Assessment/Plan Chief Complaint/Hosp Course Urinary retention on flomax Rec keep marion x 48 hourrsa then voiding trial , if no void home with [place] until pancytopenia resolved, may need Turp in future Problems: Consultation Date/Type/Reason Admit Date/Time Apr 20, 2016 at 12:32 Date of Consultation: Apr 29, 2016 Type of Consultation: Urology Reason for Consultation Urinary retention Hx of Present Illness Pt unable to void has pancytopenia, on Flomax Constitutional: improved, no complaints Eyes: no complaints ENT: no complaints Respiratory: no complaints Gastrointestinal: passing stool, No diarrhea, No pain Musculoskeletal: no complaints Neurologic: No focal-weakness, No headache, No seizure Psychological: nl mood/affect (looks happy), No depression, No suicidal Past Medical History Medical History: hypertension Past Surgical History Past Surgical Hx: no surgical history Social History Alcohol Use: none Smoking Status: Never smoker Drug Use: none Exam/Review of Systems Vital Signs Vitals Vital Signs Date Time Temp Pulse Resp B/P Pulse Ox O2 Delivery O2 Flow Rate FiO2 04/29/16 07:57 100.5 91 18 119/59 95 Intake and Output 04/28/16 04/28/16 04/29/16 15:00 23:00 07:00 Intake Total 840 ml 240 ml Output Total 600 ml 650 ml Balance 240 ml -410 ml Exam Genitourinary - Male: nl penis, nl scrotum, other Additional Comments Prostate 20 grrams smooth Results Result Diagram: 04/29/16 0540 04/29/16 0540 Results 24 hrs Laboratory Tests Test 04/29/16 05:40 Anion Gap 15 Basophils # 0.0 Basophils % 0.1 Blood Urea Nitrogen 21 H Calcium Level 8.4 Carbon Dioxide Level 30 Chloride Level 99 Creatinine 0.75 Eosinophils # 0.0 Eosinophils % 0.2 Glucose Level 130 Hematocrit 26.9 L Hemoglobin 8.4 L Lymphocytes # 1.0 Lymphocytes % 10.6 L Mean Corpuscular Hemoglobin 30.3 Mean Corpuscular Hemoglobin Concent 31.2 L Mean Corpuscular Volume 97.1 Mean Platelet Volume 10.6 H Monocytes # 1.4 H Monocytes % 14.8 H Neutrophils # 7.1 Neutrophils % 73.3 Nucleated Red Blood Cells # 0.0 Nucleated Red Blood Cells % 0.0 Platelet Count 92 #L Potassium Level 4.1 Red Blood Count 2.77 L Red Cell Distribution Width 18.1 H Sodium Level 140 White Blood Count 9.7 # Medications Medications Current Medications Docusate Sodium (Colace) 100 mg BID PO Last administered on 04/29/16 08:32; Admin Dose 100 MG; Start 04/20/16 at 21:00 Ondansetron HCl (Zofran Inj) 4 mg Q6H PRN IV NAUSEA AND/OR VOMITING; Start at 15:30 Hydrochlorothiazide (Hydrochlorothiazide) 25 mg DAILY PO Last administered on 08:31; Admin Dose 25 MG; Start 04/21/16 at 11:30 Hydralazine HCl (Apresoline) 10 mg Q6H PRN IV SBP>160 Last administered on 04/22 22:13; Admin Dose 10 MG; Start 04/22/16 at 22:30 Cyanocobalamin (Vitamin B12 Inj) 1,000 mcg DAILY IM Last administered on 08:32; Admin Dose 1,000 MCG; Start 04/23/16 at 09:00 Hydralazine HCl (Apresoline) 25 mg Q12 PO Last administered on 04/29/16 08:31; Admin Dose 25 MG; Start 04/23/16 at 21:00 Senna (Senokot) 2 tab QHS PO Last administered on 04/28/16 21:24; Admin Dose 2 TAB; Start 04/23/16 at 21:00 Pantoprazole (Protonix Tab) 40 mg DAILY@06 PO Last administered on 04/29/16 05: 33; Admin Dose 40 MG; Start 04/25/16 at 06:00 Tamsulosin HCl (Flomax) 0.4 mg HS PO Last administered on 04/28/16 21:24; Admin Dose 0.4 MG; Start 04/28/16 at 14:30 KAYLEE MELCHOR MD Apr 29, 2016 17:47
[2016-04-29 20:11] VITALS: BP 116/59; RESP 20
[2016-04-29] MEDS: SENNA TAB PO SCH (21:45)
[2016-04-29] MEDS: TAMSULOSIN (SR) 0.4 MG CAP PO SCH (21:45)
[2016-04-30] MEDS: PANTOPRAZOLE (EC) 40 MG TAB PO SCH (05:10)
[2016-04-30 06:09] LABS: ADD SCAN DIFF NO
[2016-04-30 06:28] LABS: BASOPHILS % 0.1 % (0.0-2.0); EOSINOPHILS # 0.1 10^3/ul (0.0-0.5); EOSINOPHILS % 0.6 % (0.0-7.0); HEMATOCRIT 24.4 % (42.0-52.0); HEMOGLOBIN 7.9 g/dl (14.0-18.0); LYMPHOCYTES # 1.6 10^3/ul (0.8-2.9); LYMPHOCYTES % 10.5 % (15.0-51.0); MEAN CORPUSCULAR HEMOGLOBIN 31.5 pg (29.0-33.0); MEAN CORPUSCULAR HGB CONC 32.4 g/dl (32.0-37.0); MEAN CORPUSCULAR VOLUME 97.2 fl (82.0-101.0); MEAN PLATELET VOLUME 9.7 fl (7.4-10.4); MONOCYTE # 1.1 10^3/ul (0.3-0.9); MONOCYTES % 7.2 % (0.0-11.0); NEUTROPHIL # 12.7 10^3/ul (1.6-7.5); NEUTROPHILS % 80.9 % (39.0-77.0); PLATELET COUNT 212 10^3/UL (140-415); RED BLOOD COUNT 2.51 10^6/ul (4.70-6.10); WHITE BLOOD COUNT 15.6 10^3/ul (4.8-10.8)
[2016-04-30 06:32] LABS: POTASSIUM 3.8 mmol/L (3.5-5.1)
[2016-04-30 06:34] LABS: CREATININE 0.82 mg/dl (0.61-1.24)
[2016-04-30 06:35] LABS: CALCIUM 8.1 mg/dl (8.4-10.2)
[2016-04-30 07:46] VITALS: BP 112/57; RESP 18
[2016-04-30] MEDS: DOCUSATE SODIUM 100 MG CAP PO SCH ×2 (08:19→20:34)
[2016-04-30] MEDS: CYANOCOBALAMIN 1000 MCG INJ IM SCH (08:19)
[2016-04-30] MEDS: HYDROCHLOROTHIAZIDE 25 MG TAB PO SCH (08:20)
[2016-04-30] MEDS ORDERED: SOD CHLORIDE 0.9% 250 ML IV* ONE (09:24)
--- NOTE | 2016-04-30 09:28 | PN ---
Date/Time of Note Date/Time of Note DATE: 04/30/16 TIME: 09:23 Assessment/Plan VTE Prophylaxis VTE Prophylaxis Intervention: contraindicated, SCD's VTE Contraindication Reason: thrombocytopenia Lines/Catheters IV Catheter Type (from Nrs): Saline Lock Urinary Cath still in place: Yes Reason Cath still needed: urinary retention Assessment/Plan Chief Complaint/Hosp Course Assessment/Plan: 75 yo M managed for 1. Severe Pancytopenia with lymphocytosis - ?2/2 Severe Vitamin 12 deficiency, vs other cause. Patient with hyperbilirubinemia as well suggestive of hemolysis but with no reticulocytosis. BM biopsy performed, results show possible MDS sec to parvovirus? - now improving - appreciate hematology input and interventions / discuss path report, [facility] may also look at this as well - per Heme Onc - TRANSFUSE IF HB FABIO THAN 8 AND PLATELET LESS THAN 30944 ( presently 7 ->->->38->92 -> 212) - maintain neutropenic precautions - given low hgb today - transfuse 2 units pRBC 2. Rectal wall thickening: likely 2/2 inflammation - Resolved on CT + contrast - appreciate GI review / planned for colonoscopy when leucopenia and thrombocytopenia improves 3. Situational Depression + Suicidal ideation : improved - apparently pt wanted to because of lack of resources, feels much better now - Supportive care 4. Hypertension: control much improved on current regimen - Continue current antihypertensives 5. Low HDL - monitor 6. Asymptomatic bradycardia - monitor 7. Mild diastolic dysfxn and elevated PA pressure on Echo 8. urinary retention - improved after Flomax and Campuzano started yesterday - monitor UO, awaiting consult as well. Plan: Needs placement at discharge, insurance also pending. PROPHYLAXIS: SCDs / PPI Problems: Subjective 24 Hr Interval Summary Free Text/Dictation Pt seen by team, no acute events overnight. Exam/Review of Systems Vital Signs Vitals Vital Signs Date Time Temp Pulse Resp B/P Pulse Ox O2 Delivery O2 Flow Rate FiO2 04/30/16 07:46 97.6 68 18 112/57 96 Intake and Output 04/29/16 04/29/16 04/30/16 15:00 23:00 07:00 Intake Total 1080 ml 120 ml Output Total 450 ml 400 ml Balance 630 ml -280 ml Exam Constitutional: more alert, oriented (x4), other (elderly male), No distress Psych: nl mood/affect, No anxiety Head: atraumatic, normocephalic Eyes: PERRL, less icteric (+) ENMT: mucosa pink and moist Neck: non-tender Respiratory: clear to auscultation, diminished breath sounds Cardiovascular: regular rate and rhythm, No murmurs/extra sounds Gastrointestinal: bowel sounds, non-tender, soft Musculoskeletal: nl extremities to inspection Extremities: No edema Neurological: nl mental status, nl speech, No focal weakness Skin: other (less jaundice?) Psych: nl mood/affect Results Result Diagram: 04/30/16 0520 04/30/16 05 Results 24 hrs Laboratory Tests Test 04/30/16 05:20 04/30/16 05:22 Basophils # 0.0 Basophils % 0.1 Eosinophils # 0.1 Eosinophils % 0.6 Hematocrit 24.4 L Hemoglobin 7.9 L Lymphocytes # 1.6 Lymphocytes % 10.5 L Mean Corpuscular Hemoglobin 31.5 Mean Corpuscular Hemoglobin Concent 32.4 Mean Corpuscular Volume 97.2 Mean Platelet Volume 9.7 Monocytes # 1.1 H Monocytes % 7.2 Neutrophils # 12.7 H Neutrophils % 80.9 H Nucleated Red Blood Cells # 0.0 Nucleated Red Blood Cells % 0.0 Platelet Count 212 # Red Blood Count 2.51 L Red Cell Distribution Width 18.0 H White Blood Count 15.6 #H Anion Gap 13 Blood Urea Nitrogen 26 H Calcium Level 8.1 L Carbon Dioxide Level 31 Chloride Level 99 Creatinine 0.82 Glucose Level 105 Potassium Level 3.8 Sodium Level 139 Medications Medications Current Medications Docusate Sodium (Colace) 100 mg BID PO Last administered on 04/30/16 08:19; Admin Dose 100 MG; Start 04/20/16 at 21:00 Ondansetron HCl (Zofran Inj) 4 mg Q6H PRN IV NAUSEA AND/OR VOMITING; Start at 15:30 Hydrochlorothiazide (Hydrochlorothiazide) 25 mg DAILY PO Last administered on 08:20; Admin Dose 25 MG; Start 04/21/16 at 11:30 Hydralazine HCl (Apresoline) 10 mg Q6H PRN IV SBP>160 Last administered on 04/22 22:13; Admin Dose 10 MG; Start 04/22/16 at 22:30 Cyanocobalamin (Vitamin B12 Inj) 1,000 mcg DAILY IM Last administered on 08:19; Admin Dose 1,000 MCG; Start 04/23/16 at 09:00 Hydralazine HCl (Apresoline) 25 mg Q12 PO Last administered on 04/30/16 08:20; Admin Dose 25 MG; Start 04/23/16 at 21:00 Senna (Senokot) 2 tab QHS PO Last administered on 04/29/16 21:45; Admin Dose 2 TAB; Start 04/23/16 at 21:00 Pantoprazole (Protonix Tab) 40 mg DAILY@06 PO Last administered on 04/30/16 05: 10; Admin Dose 40 MG; Start 04/25/16 at 06:00 Tamsulosin HCl (Flomax) 0.4 mg HS PO Last administered on 04/29/16 21:45; Admin Dose 0.4 MG; Start 04/28/16 at 14:30 LES ROCHE 4, 2017 09:28
[2016-04-30 18:54] LABS: ADD UMIC YES; URINE BILIRUBIN (Dip) NEGATIVE (NEGATIVE); URINE BLOOD (Dip) 3+ (NEGATIVE); URINE GLUCOSE (Dip) NEGATIVE (NEGATIVE); URINE KETONES (Dip) NEGATIVE (NEGATIVE); URINE LEUKOCYTE ESTERASE (Dip) 2+ (NEGATIVE); URINE NITRITE (Dip) POSITIVE (NEGATIVE); URINE TOTAL PROTEIN (Dip) 2+ (NEGATIVE); URINE UROBILINOGEN (Dip) 0.2 E.U./dL (0.1-1.0)
[2016-04-30 19:00] VITALS: BP 106/55; RESP 18
[2016-04-30 19:45] LABS: BACTERIA,URINE MANY; URINE COLOR YELLOW (YELLOW); URINE RBCS >50 /HPF (0)
[2016-04-30 19:46] LABS: TRANSITIONAL EPI CELLS,URINE FEW
[2016-04-30] MEDS: SENNA TAB PO SCH (20:34)
[2016-04-30] MEDS: TAMSULOSIN (SR) 0.4 MG CAP PO SCH (20:35)
--- NOTE | 2016-04-30 22:46 | CONS ---
Date/Time of Note Date/Time of Note DATE: 04/30/16 TIME: 22:45 Assessment/Plan Assessment/Plan Chief Complaint/Hosp Course SEVERE PANCYTOPENIA WITH NEUTROPENIA, IMPROVED ON B12 MACROCYTIC ANEMIA- REQUIRING PRBC TRANSFUSION- 6U THROMBOCYTOPENIA WITHOUT EVIDENCE OF BLEEDING ASSOCIATED WITH INCREASED INDIRECT BILI, SUGGESTING INTRAVASCULAR HEMOLYSIS PLAN: COMPLETE PANCYTOPENIA W-UP [facility] SCREEN - NEG SMEAR- NEG HEMOLYSIS W-UP- HAPTO LESS THEN 15, LORENZO- NEG CT ABD- NEG POST BMBX- AWAIT RESULT MONITOR BLOOD COUNT CLOSELY OBSERVE FOR BLEEDING AND HEMOLYSIS TRANSFUSE IF HB FABIO THAN 8 AND PLATELET LESS THAN 37441 DC neutropenic precautions COUNT IMPROVED ON VIT B12 ? parvovi infection specimen will be reviewed at [facility] PROFOUND B12 DEFICIENCY CAN EXPLAIN PANCYTOPENIA CONT B12 COUNT - IMPROVING HEP B (+) Suicidal ideation * Mental health evaluation in process SOCIAL PROBLEMS / HOMELESS Problems: Consultation Date/Type/Reason Admit Date/Time Apr 20, 2016 at 12:32 Initial Consult Date 04/21/16 Type of Consultation: HEMEONC Referring Provider: WALE LORENZO 24 HR Interval Summary Free Text/Dictation ALL NOTED COUNT IMPROVING H/H- DOWN PRBC ORDERED Exam/Review of Systems Vital Signs Vitals Vital Signs Date Time Temp Pulse Resp B/P Pulse Ox O2 Delivery O2 Flow Rate FiO2 04/30/16 19:00 99.6 80 18 106/55 96 Intake and Output 04/29/16 04/29/16 04/30/16 15:00 23:00 07:00 Intake Total 1080 ml 120 ml Output Total 450 ml 400 ml Balance 630 ml -280 ml Exam Constitutional: more alert, oriented (x4), other (elderly male), No distress Psych: nl mood/affect, No anxiety Head: atraumatic, normocephalic Eyes: PERRL, less icteric (+) ENMT: mucosa pink and moist Neck: non-tender Respiratory: clear to auscultation, diminished breath sounds Cardiovascular: regular rate and rhythm, No murmurs/extra sounds Gastrointestinal: bowel sounds, non-tender, soft Musculoskeletal: nl extremities to inspection Extremities: No edema Neurological: nl mental status, nl speech, No focal weakness Skin: other (less jaundice?) Psych: nl mood/affect Results Result Diagram: 04/30/1651904/30/16521 Results 24 hrs Laboratory Tests Test 04/30/16 05:20 04/30/16 05:22 04/30/16 16:30 Basophils # 0.0 Basophils % 0.1 Eosinophils # 0.1 Eosinophils % 0.6 Hematocrit 24.4 L Hemoglobin 7.9 L Lymphocytes # 1.6 Lymphocytes % 10.5 L Mean Corpuscular Hemoglobin 31.5 Mean Corpuscular Hemoglobin Concent 32.4 Mean Corpuscular Volume 97.2 Mean Platelet Volume 9.7 Monocytes # 1.1 H Monocytes % 7.2 Neutrophils # 12.7 H Neutrophils % 80.9 H Nucleated Red Blood Cells # 0.0 Nucleated Red Blood Cells % 0.0 Platelet Count 212 # Red Blood Count 2.51 L Red Cell Distribution Width 18.0 H White Blood Count 15.6 #H Anion Gap 13 Blood Urea Nitrogen 26 H Calcium Level 8.1 L Carbon Dioxide Level 31 Chloride Level 99 Creatinine 0.82 Glucose Level 105 Potassium Level 3.8 Sodium Level 139 Urine Bacteria MANY Urine Bilirubin NEGATIVE Urine Clarity CLOUDY H Urine Color YELLOW Urine Glucose NEGATIVE Urine Hemoglobin 3+ H Urine Ketones NEGATIVE Urine Leukocyte Esterase 2+ H Urine Microscopic RBC >50 Urine Microscopic WBC >200 Urine Nitrite POSITIVE H Urine Specific [place] 1.025 Urine Total Protein 2+ H Urine Transitional Epithelial Cells FEW Urine Urobilinogen 0.2 E.U./dL Urine pH 5.5 Medications Medications Current Medications Docusate Sodium (Colace) 100 mg BID PO Last administered on 04/30/16 20:34; Admin Dose 100 MG; Start 04/20/16 at 21:00 Ondansetron HCl (Zofran Inj) 4 mg Q6H PRN IV NAUSEA AND/OR VOMITING; Start at 15:30 Hydrochlorothiazide (Hydrochlorothiazide) 25 mg DAILY PO Last administered on 08:20; Admin Dose 25 MG; Start 04/21/16 at 11:30 Hydralazine HCl (Apresoline) 10 mg Q6H PRN IV SBP>160 Last administered on 04/22 22:13; Admin Dose 10 MG; Start 04/22/16 at 22:30 Cyanocobalamin (Vitamin B12 Inj) 1,000 mcg DAILY IM Last administered on 08:19; Admin Dose 1,000 MCG; Start 04/23/16 at 09:00 Hydralazine HCl (Apresoline) 25 mg Q12 PO Last administered on 04/30/16 20:35; Admin Dose 25 MG; Start 04/23/16 at 21:00 Senna (Senokot) 2 tab QHS PO Last administered on 04/30/16 20:34; Admin Dose 2 TAB; Start 04/23/16 at 21:00 Pantoprazole (Protonix Tab) 40 mg DAILY@06 PO Last administered on 04/30/16 05: 10; Admin Dose 40 MG; Start 04/25/16 at 06:00 Tamsulosin HCl (Flomax) 0.4 mg HS PO Last administered on 04/30/16 20:35; Admin Dose 0.4 MG; Start 04/28/16 at 14:30 THERESA KEYES MD Apr 30, 2016 22:46
[2016-05-01] MEDS: PANTOPRAZOLE (EC) 40 MG TAB PO SCH (05:56)
[2016-05-01 06:37] LABS: ADD SCAN DIFF NO
[2016-05-01 06:49] LABS: BASOPHILS % 0.2 % (0.0-2.0); EOSINOPHILS # 0.2 10^3/ul (0.0-0.5); HEMATOCRIT 29.7 % (42.0-52.0); HEMOGLOBIN 9.5 g/dl (14.0-18.0); LYMPHOCYTES # 1.4 10^3/ul (0.8-2.9); LYMPHOCYTES % 13.5 % (15.0-51.0); MEAN CORPUSCULAR HEMOGLOBIN 30.7 pg (29.0-33.0); MEAN CORPUSCULAR VOLUME 96.1 fl (82.0-101.0); MEAN PLATELET VOLUME 9.7 fl (7.4-10.4); MONOCYTE # 0.8 10^3/ul (0.3-0.9); MONOCYTES % 7.9 % (0.0-11.0); NEUTROPHIL # 7.8 10^3/ul (1.6-7.5); NEUTROPHILS % 75.5 % (39.0-77.0); PLATELET COUNT 342 10^3/UL (140-415); RED BLOOD COUNT 3.09 10^6/ul (4.70-6.10); RED CELL DISTRIBUTION WIDTH 19.7 % (11.5-14.5); WHITE BLOOD COUNT 10.4 10^3/ul (4.8-10.8)
[2016-05-01 07:07] LABS: MAGNESIUM 2.3 mg/dl (1.7-2.5); PHOSPHORUS 3.2 mg/dl (2.5-4.9)
[2016-05-01 07:17] LABS: POTASSIUM 3.7 mmol/L (3.5-5.1)
[2016-05-01 07:19] LABS: CREATININE 0.66 mg/dl (0.61-1.24)
[2016-05-01 07:20] LABS: CALCIUM 8.1 mg/dl (8.4-10.2)
[2016-05-01 07:53] VITALS: BP 115/60; RESP 20
[2016-05-01] MEDS: DOCUSATE SODIUM 100 MG CAP PO SCH ×2 (09:21→20:19)
[2016-05-01] MEDS: HYDROCHLOROTHIAZIDE 25 MG TAB PO SCH (09:22)
[2016-05-01] MEDS: CYANOCOBALAMIN 1000 MCG INJ IM SCH (09:22)
--- NOTE | 2016-05-01 13:07 | PN ---
Date/Time of Note Date/Time of Note DATE: 05/01/16 TIME: 13:06 Assessment/Plan VTE Prophylaxis VTE Prophylaxis Intervention: contraindicated, SCD's VTE Contraindication Reason: thrombocytopenia Lines/Catheters IV [facility] (from [facility] Saline Lock Urinary Cath still in place: Yes Reason Cath still needed: urinary retention Assessment/Plan Chief Complaint/Hosp Course Assessment/Plan: 75 yo M managed for 1. Severe Pancytopenia with lymphocytosis - ?2/2 Severe Vitamin 12 deficiency, vs other cause. Patient with hyperbilirubinemia as well suggestive of hemolysis but with no reticulocytosis. BM biopsy performed, results show possible MDS sec to parvovirus? - now improving - appreciate hematology input and interventions / discuss path report, [facility] may also look at this as well - per Heme Onc - TRANSFUSE IF HB FABIO THAN 8 AND PLATELET LESS THAN 67954 ( presently 7 ->->->38->92 -> 212->342) - maintain neutropenic precautions 2. Rectal wall thickening: likely 2/2 inflammation - Resolved on CT + contrast - appreciate GI review / planned for colonoscopy when leucopenia and thrombocytopenia improves 3. Situational Depression + Suicidal ideation : improved - apparently pt wanted to because of lack of resources, feels much better now - Supportive care 4. Hypertension: control much improved on current regimen - Continue current antihypertensives 5. Low HDL - monitor 6. Asymptomatic bradycardia - monitor 7. Mild diastolic dysfxn and elevated PA pressure on Echo 8. urinary retention - improved after Flomax and Campuzano started 2 days ago - monitor UO, per team will d/c Campuzano today and monitor UO, if still retention may need reinsertion. Plan: Needs placement at discharge, insurance also pending. PROPHYLAXIS: SCDs / PPI Problems: Subjective 24 Hr Interval Summary Free Text/Dictation Had pRBC transfusion yesterday, No acute events overnight. Exam/Review of Systems Vital Signs Vitals Vital Signs Date Time Temp Pulse Resp B/P Pulse Ox O2 Delivery O2 Flow Rate FiO2 05/01/16 07:53 98.1 66 20 115/60 97 Intake and Output 04/30/16 04/30/16 05/01/16 15:00 23:00 07:00 Intake Total 1500 ml 1020 ml Output Total 600 ml 600 ml Balance 900 ml 420 ml Exam Constitutional: more alert, oriented (x4), other (elderly male), No distress Psych: nl mood/affect, No anxiety Head: atraumatic, normocephalic Eyes: PERRL, less icteric (+) ENMT: mucosa pink and moist Neck: non-tender Respiratory: clear to auscultation, diminished breath sounds Cardiovascular: regular rate and rhythm, No murmurs/extra sounds Gastrointestinal: bowel sounds, non-tender, soft Musculoskeletal: nl extremities to inspection Extremities: No edema Neurological: nl mental status, nl speech, No focal weakness Skin: other (less jaundice?) Psych: nl mood/affect Results Result Diagram: 05/01/168 05/01/16 0438 Results 24 hrs Laboratory Tests Test 04/30/16 16:30 05/01/16 04:38 Urine Bacteria MANY Urine Bilirubin NEGATIVE Urine Clarity CLOUDY H Urine Color YELLOW Urine Glucose NEGATIVE Urine Hemoglobin 3+ H Urine Ketones NEGATIVE Urine Leukocyte Esterase 2+ H Urine Microscopic RBC >50 Urine Microscopic WBC >200 Urine Nitrite POSITIVE H Urine Specific [place] 1.025 Urine Total Protein 2+ H Urine Transitional Epithelial Cells FEW Urine Urobilinogen 0.2 E.U./dL Urine pH 5.5 Anion Gap 14 Basophils # 0.0 Basophils % 0.2 Blood Urea Nitrogen 23 H Calcium Level 8.1 L Carbon Dioxide Level 29 Chloride Level 102 Creatinine 0.66 Eosinophils # 0.2 Eosinophils % 2.0 Glucose Level 99 Hematocrit 29.7 #L Hemoglobin 9.5 #L Lymphocytes # 1.4 Lymphocytes % 13.5 L Magnesium Level 2.3 Mean Corpuscular Hemoglobin 30.7 Mean Corpuscular Hemoglobin Concent 32.0 Mean Corpuscular Volume 96.1 Mean Platelet Volume 9.7 Monocytes # 0.8 Monocytes % 7.9 Neutrophils # 7.8 H Neutrophils % 75.5 Nucleated Red Blood Cells # 0.0 Nucleated Red Blood Cells % 0.0 Phosphorus Level 3.2 Platelet Count 342 # Potassium Level 3.7 Red Blood Count 3.09 #L Red Cell Distribution Width 19.7 H Sodium Level 141 White Blood Count 10.4 # Medications Medications Current Medications Docusate Sodium (Colace) 100 mg BID PO Last administered on 05/01/16 09:21; Admin Dose 100 MG; Start 04/20/16 at 21:00 Ondansetron HCl (Zofran Inj) 4 mg Q6H PRN IV NAUSEA AND/OR VOMITING; Start at 15:30 Hydrochlorothiazide (Hydrochlorothiazide) 25 mg DAILY PO Last administered on 09:22; Admin Dose 25 MG; Start 04/21/16 at 11:30 Hydralazine HCl (Apresoline) 10 mg Q6H PRN IV SBP>160 Last administered on 04/22 22:13; Admin Dose 10 MG; Start 04/22/16 at 22:30 Cyanocobalamin (Vitamin B12 Inj) 1,000 mcg DAILY IM Last administered on 09:22; Admin Dose 1,000 MCG; Start 04/23/16 at 09:00 Hydralazine HCl (Apresoline) 25 mg Q12 PO Last administered on 05/01/16 09:22; Admin Dose 25 MG; Start 04/23/16 at 21:00 Senna (Senokot) 2 tab QHS PO Last administered on 04/30/16 20:34; Admin Dose 2 TAB; Start 04/23/16 at 21:00 Pantoprazole (Protonix Tab) 40 mg DAILY@06 PO Last administered on 05/01/16 05: 56; Admin Dose 40 MG; Start 04/25/16 at 06:00 Tamsulosin HCl (Flomax) 0.4 mg HS PO Last administered on 04/30/16 20:35; Admin Dose 0.4 MG; Start 04/28/16 at 14:30 LES ROCHE May 01, 2016 13:07
--- NOTE | 2016-05-01 19:11 | CONS ---
Date/Time of Note Date/Time of Note DATE: 05/01/16 TIME: 19:09 Assessment/Plan Assessment/Plan Chief Complaint/Hosp Course SEVERE PANCYTOPENIA WITH NEUTROPENIA, IMPROVED ON B12 MACROCYTIC ANEMIA- REQUIRING PRBC TRANSFUSION- 6U THROMBOCYTOPENIA WITHOUT EVIDENCE OF BLEEDING ASSOCIATED WITH INCREASED INDIRECT BILI, SUGGESTING INTRAVASCULAR HEMOLYSIS PLAN: COMPLETE PANCYTOPENIA W-UP [facility] SCREEN - NEG SMEAR- NEG HEMOLYSIS W-UP- HAPTO LESS THEN 15, LORENZO- NEG CT ABD- NEG POST BMBX- AWAIT RESULT MONITOR BLOOD COUNT CLOSELY OBSERVE FOR BLEEDING AND HEMOLYSIS TRANSFUSE IF HB FABIO THAN 8 AND PLATELET LESS THAN 52497 DC neutropenic precautions COUNT IMPROVED ON VIT B12 ? parvovi infection specimen will be reviewed at [facility] PROFOUND B12 DEFICIENCY CAN EXPLAIN PANCYTOPENIA CONT B12 COUNT - IMPROVING HEP B (+) Suicidal ideation * Mental health evaluation in process SOCIAL PROBLEMS / HOMELESS Problems: Consultation Date/Type/Reason Admit Date/Time Apr 20, 2016 at 12:32 Initial Consult Date 04/21/16 Type of Consultation: HEMEONC Referring Provider: WALE LORENZO 24 HR Interval Summary Free Text/Dictation all noted count looks better Exam/Review of Systems Vital Signs Vitals Vital Signs Date Time Temp Pulse Resp B/P Pulse Ox O2 Delivery O2 Flow Rate FiO2 05/01/16 07:53 98.1 66 20 115/60 97 Intake and Output 04/30/16 04/30/16 05/01/16 15:00 23:00 07:00 Intake Total 1500 ml 1020 ml Output Total 600 ml 600 ml Balance 900 ml 420 ml Exam Const: Pale Head: Atraumatic Eyes: Normal Conjunctiva ENT: Normal External Ears, Nose and Mouth. Neck: Full range of motion..~ No meningismus. Resp: Clear to auscultation bilaterally Cardio: Regular rate and rhythm, no murmurs Abd: Soft, non tender, non distended. Normal bowel sounds Skin: Pale with bruising the left forehead and bilateral knees Back: No midline or flank tenderness Ext: No cyanosis, or edema Neur: Awake and alert Psych: Normal Mood and Affect Results Result Diagram: 05/01/16 0438 05/01/16 0438 Results 24 hrs Laboratory Tests Test 05/01/16 04:38 Anion Gap 14 Basophils # 0.0 Basophils % 0.2 Blood Urea Nitrogen 23 H Calcium Level 8.1 L Carbon Dioxide Level 29 Chloride Level 102 Creatinine 0.66 Eosinophils # 0.2 Eosinophils % 2.0 Glucose Level 99 Hematocrit 29.7 #L Hemoglobin 9.5 #L Lymphocytes # 1.4 Lymphocytes % 13.5 L Magnesium Level 2.3 Mean Corpuscular Hemoglobin 30.7 Mean Corpuscular Hemoglobin Concent 32.0 Mean Corpuscular Volume 96.1 Mean Platelet Volume 9.7 Monocytes # 0.8 Monocytes % 7.9 Neutrophils # 7.8 H Neutrophils % 75.5 Nucleated Red Blood Cells # 0.0 Nucleated Red Blood Cells % 0.0 Phosphorus Level 3.2 Platelet Count 342 # Potassium Level 3.7 Red Blood Count 3.09 #L Red Cell Distribution Width 19.7 H Sodium Level 141 White Blood Count 10.4 # Medications Medications Current Medications Docusate Sodium (Colace) 100 mg BID PO Last administered on 05/01/16 09:21; Admin Dose 100 MG; Start 04/20/16 at 21:00 Ondansetron HCl (Zofran Inj) 4 mg Q6H PRN IV NAUSEA AND/OR VOMITING; Start at 15:30 Hydrochlorothiazide (Hydrochlorothiazide) 25 mg DAILY PO Last administered on 09:22; Admin Dose 25 MG; Start 04/21/16 at 11:30 Hydralazine HCl (Apresoline) 10 mg Q6H PRN IV SBP>160 Last administered on 04/22 22:13; Admin Dose 10 MG; Start 04/22/16 at 22:30 Cyanocobalamin (Vitamin B12 Inj) 1,000 mcg DAILY IM Last administered on 09:22; Admin Dose 1,000 MCG; Start 04/23/16 at 09:00 Hydralazine HCl (Apresoline) 25 mg Q12 PO Last administered on 05/01/16 09:22; Admin Dose 25 MG; Start 04/23/16 at 21:00 Senna (Senokot) 2 tab QHS PO Last administered on 04/30/16 20:34; Admin Dose 2 TAB; Start 04/23/16 at 21:00 Pantoprazole (Protonix Tab) 40 mg DAILY@06 PO Last administered on 05/01/16 05: 56; Admin Dose 40 MG; Start 04/25/16 at 06:00 Tamsulosin HCl (Flomax) 0.4 mg HS PO Last administered on 04/30/16t 20:35; Admin Dose 0.4 MG; Start 04/28/16 at 14:30 THERESA KEYES MD May 01, 2016 19:10
[2016-05-01 20:12] VITALS: BP 137/62; PULSE 72; RESP 18
[2016-05-01] MEDS: SENNA TAB PO SCH (20:19)
[2016-05-01] MEDS: TAMSULOSIN (SR) 0.4 MG CAP PO SCH (20:19)
[2016-05-02 05:17] LABS: ADD SCAN DIFF NO
[2016-05-02 05:39] LABS: BASOPHIL # 0.1 10^3/ul (0.0-0.1); BASOPHILS % 0.6 % (0.0-2.0); EOSINOPHILS # 0.4 10^3/ul (0.0-0.5); EOSINOPHILS % 4.4 % (0.0-7.0); HEMATOCRIT 30.3 % (42.0-52.0); HEMOGLOBIN 9.8 g/dl (14.0-18.0); LYMPHOCYTES # 1.5 10^3/ul (0.8-2.9); LYMPHOCYTES % 17.1 % (15.0-51.0); MEAN CORPUSCULAR HEMOGLOBIN 30.8 pg (29.0-33.0); MEAN CORPUSCULAR HGB CONC 32.3 g/dl (32.0-37.0); MEAN CORPUSCULAR VOLUME 95.3 fl (82.0-101.0); MEAN PLATELET VOLUME 8.9 fl (7.4-10.4); MONOCYTE # 0.7 10^3/ul (0.3-0.9); MONOCYTES % 8.1 % (0.0-11.0); NEUTROPHIL # 6.1 10^3/ul (1.6-7.5); PLATELET COUNT 486 10^3/UL (140-415); RED BLOOD COUNT 3.18 10^6/ul (4.70-6.10); RED CELL DISTRIBUTION WIDTH 18.6 % (11.5-14.5); WHITE BLOOD COUNT 8.8 10^3/ul (4.8-10.8)
[2016-05-02 05:42] LABS: CREATININE 0.69 mg/dl (0.61-1.24)
[2016-05-02 05:43] LABS: CALCIUM 8.4 mg/dl (8.4-10.2)
[2016-05-02] MEDS: PANTOPRAZOLE (EC) 40 MG TAB PO SCH (05:52)
[2016-05-02 07:44] VITALS: BP 131/63; RESP 18
[2016-05-02] MEDS: HYDROCHLOROTHIAZIDE 25 MG TAB PO SCH (09:15)
[2016-05-02] MEDS: CYANOCOBALAMIN 1000 MCG INJ IM SCH (09:15)
[2016-05-02] MEDS: DOCUSATE SODIUM 100 MG CAP PO SCH ×2 (09:15→20:30)
--- NOTE | 2016-05-02 12:05 | CONS ---
Date/Time of Note Date/Time of Note DATE: 05/02/16 TIME: 12:02 Assessment/Plan Assessment/Plan Chief Complaint/Hosp Course SEVERE PANCYTOPENIA WITH NEUTROPENIA 2 TO PROFOUND B12 DEFICIENCY MEGALOBLASTIC MACROCYTIC ANEMIA- REQUIRING PRBC TRANSFUSION- 6U cont vit B12 per protocol no evidence of parvovi infection based on review at [facility] HEP B (+) Suicidal ideation * Mental health evaluation in process SOCIAL PROBLEMS / HOMELESS Problems: Consultation Date/Type/Reason Admit Date/Time Apr 20, 2016 at 12:32 Initial Consult Date 04/21/16 Type of Consultation: HEMEON Referring Provider: WALE LORENZO 24 HR Interval Summary Free Text/Dictation ALL NOTED COUNT IMPROVED ON VIT B12 Exam/Review of Systems Vital Signs Vitals Vital Signs Date Time Temp Pulse Resp B/P Pulse Ox O2 Delivery O2 Flow Rate FiO2 05/02/16 07:44 98.4 67 18 131/63 96 05/01/16 20:12 Room Air Intake and Output 05/01/16 05/01/16 05/02/16 15:00 23:00 07:00 Intake Total 1320 ml 240 ml Output Total 800 ml 550 ml Balance 520 ml -310 ml Exam Constitutional: more alert, oriented (x4), other (elderly male), No distress Psych: nl mood/affect, No anxiety Head: atraumatic, normocephalic Eyes: PERRL, less icteric (+) ENMT: mucosa pink and moist Neck: non-tender Respiratory: clear to auscultation, diminished breath sounds Cardiovascular: regular rate and rhythm, No murmurs/extra sounds Gastrointestinal: bowel sounds, non-tender, soft Musculoskeletal: nl extremities to inspection Extremities: No edema Neurological: nl mental status, nl speech, No focal weakness Skin: other (less jaundice?) Psych: nl mood/affect Results Result Diagram: 05/02/16 0450 05/02/16 0450 Results 24 hrs Laboratory Tests Test 05/02/16 04:50 Anion Gap 14 Basophils # 0.1 Basophils % 0.6 Blood Urea Nitrogen 17 Calcium Level 8.4 Carbon Dioxide Level 28 Chloride Level 104 Creatinine 0.69 Eosinophils # 0.4 Eosinophils % 4.4 Glucose Level 106 Hematocrit 30.3 L Hemoglobin 9.8 L Lymphocytes # 1.5 Lymphocytes % 17.1 Mean Corpuscular Hemoglobin 30.8 Mean Corpuscular Hemoglobin Concent 32.3 Mean Corpuscular Volume 95.3 Mean Platelet Volume 8.9 Monocytes # 0.7 Monocytes % 8.1 Neutrophils # 6.1 Neutrophils % 69.0 Nucleated Red Blood Cells # 0.0 Nucleated Red Blood Cells % 0.0 Platelet Count 486 #H Potassium Level 4.0 Red Blood Count 3.18 L Red Cell Distribution Width 18.6 H Sodium Level 142 White Blood Count 8.8 Medications Medications Current Medications Docusate Sodium (Colace) 100 mg BID PO Last administered on 05/02/16 09:15; Admin Dose 100 MG; Start 04/20/16 at 21:00 Ondansetron HCl (Zofran Inj) 4 mg Q6H PRN IV NAUSEA AND/OR VOMITING; Start at 15:30 Hydrochlorothiazide (Hydrochlorothiazide) 25 mg DAILY PO Last administered on 09:15; Admin Dose 25 MG; Start 04/21/16 at 11:30 Hydralazine HCl (Apresoline) 10 mg Q6H PRN IV SBP>160 Last administered on 04/22 22:13; Admin Dose 10 MG; Start 04/22/16 at 22:30 Cyanocobalamin (Vitamin B12 Inj) 1,000 mcg DAILY IM Last administered on 09:15; Admin Dose 1,000 MCG; Start 04/23/16 at 09:00 Hydralazine HCl (Apresoline) 25 mg Q12 PO Last administered on 05/02/16 09:15; Admin Dose 25 MG; Start 04/23/16 at 21:00 Senna (Senokot) 2 tab QHS PO Last administered on 05/01/16 20:19; Admin Dose 2 TAB; Start 04/23/16 at 21:00 Pantoprazole (Protonix Tab) 40 mg DAILY@06 PO Last administered on 05/02/16 05: 52; Admin Dose 40 MG; Start 04/25/16 at 06:00 Tamsulosin HCl (Flomax) 0.4 mg HS PO Last administered on 05/01/16 20:19; Admin Dose 0.4 MG; Start 04/28/16 at 14:30 THERESA KEYES MD May 02, 2016 12:05
--- NOTE | 2016-05-02 12:38 | PN ---
Date/Time of Note Date/Time of Note DATE: 05/02/16 TIME: 12:33 Assessment/Plan VTE Prophylaxis VTE Prophylaxis Intervention: ambulation, SCD's Lines/Catheters IV [facility]ter [facility]from [facility] Urinary Cath still in place: No Assessment/Plan Assessment/Plan 75 yo M managed for 1. Severe Pancytopenia with lymphocytosis 2/2 Severe Vitamin 12 deficiency likely from poor nutrition: resolving Path showed no MDS per hematology 2. Rectal wall thickening: likely 2/[address] + contrast 3. Situational Depression + Suicidal ideation : improved * wanted to because of lack of resources, feels much better now 4. Hypertension: control much improved on current regimen 5. Low HDL 6. Asymptomatic bradycardia 7. Mild diastolic dysfxn and elevated PA pressure on Echo Plan: * appreciate hematology input and interventions * appreciate GI review / * Continue current antihypertensives * Supportive care * Case mgt working on placement * Continue supportuve care Exam/Review of Systems Vital Signs Vitals Vital Signs Date Time Temp Pulse Resp B/P Pulse Ox O2 Delivery O2 Flow Rate FiO2 05/02/16 07:44 98.4 67 18 131/63 96 05/01/16 20:12 Room Air Intake and Output 05/01/16 05/01/16 05/02/16 15:00 23:00 07:00 Intake Total 1320 ml 240 ml Output Total 800 ml 550 ml Balance 520 ml -310 ml Results Result Diagram: 05/02/16 0450 05/02/16 0450 Results 24 hrs Laboratory Tests Test 05/02/16 04:50 Anion Gap 14 Basophils # 0.1 Basophils % 0.6 Blood Urea Nitrogen 17 Calcium Level 8.4 Carbon Dioxide Level 28 Chloride Level 104 Creatinine 0.69 Eosinophils # 0.4 Eosinophils % 4.4 Glucose Level 106 Hematocrit 30.3 L Hemoglobin 9.8 L Lymphocytes # 1.5 Lymphocytes % 17.1 Mean Corpuscular Hemoglobin 30.8 Mean Corpuscular Hemoglobin Concent 32.3 Mean Corpuscular Volume 95.3 Mean Platelet Volume 8.9 Monocytes # 0.7 Monocytes % 8.1 Neutrophils # 6.1 Neutrophils % 69.0 Nucleated Red Blood Cells # 0.0 Nucleated Red Blood Cells % 0.0 Platelet Count 486 #H Potassium Level 4.0 Red Blood Count 3.18 L Red Cell Distribution Width 18.6 H Sodium Level 142 White Blood Count 8.8 Medications Medications Current Medications Docusate Sodium (Colace) 100 mg BID PO Last administered on 05/02/16 09:15; Admin Dose 100 MG; Start 04/20/16 at 21:00 Ondansetron HCl (Zofran Inj) 4 mg Q6H PRN IV NAUSEA AND/OR VOMITING; Start at 15:30 Hydrochlorothiazide (Hydrochlorothiazide) 25 mg DAILY PO Last administered on 09:15; Admin Dose 25 MG; Start 04/21/16 at 11:30 Hydralazine HCl (Apresoline) 10 mg Q6H PRN IV SBP>160 Last administered on 04/22 22:13; Admin Dose 10 MG; Start 04/22/16 at 22:30 Cyanocobalamin (Vitamin B12 Inj) 1,000 mcg DAILY IM Last administered on 09:15; Admin Dose 1,000 MCG; Start 04/23/16 at 09:00 Hydralazine HCl (Apresoline) 25 mg Q12 PO Last administered on 05/02/16 09:15; Admin Dose 25 MG; Start 04/23/16 at 21:00 Senna (Senokot) 2 tab QHS PO Last administered on 05/01/16 20:19; Admin Dose 2 TAB; Start 04/23/16 at 21:00 Pantoprazole (Protonix Tab) 40 mg DAILY@06 PO Last administered on 05/02/16 05: 52; Admin Dose 40 MG; Start 04/25/16 at 06:00 Tamsulosin HCl (Flomax) 0.4 mg HS PO Last administered on 05/01/16 20:19; Admin Dose 0.4 MG; Start 04/28/16 at 14:30 WALE LORENZO May 02, 2016 12:38
[2016-05-02 20:20] VITALS: BP 131/60; RESP 18
[2016-05-02] MEDS: TAMSULOSIN (SR) 0.4 MG CAP PO SCH (20:29)
[2016-05-02] MEDS: SENNA TAB PO SCH (20:30)
[2016-05-03] MEDS: PANTOPRAZOLE (EC) 40 MG TAB PO SCH (05:48)
[2016-05-03 06:23] LABS: ADD SCAN DIFF NO
[2016-05-03 06:32] LABS: BASOPHIL # 0.1 10^3/ul (0.0-0.1); BASOPHILS % 1.1 % (0.0-2.0); EOSINOPHILS # 0.4 10^3/ul (0.0-0.5); EOSINOPHILS % 5.4 % (0.0-7.0); HEMATOCRIT 31.6 % (42.0-52.0); LYMPHOCYTES # 1.5 10^3/ul (0.8-2.9); LYMPHOCYTES % 18.8 % (15.0-51.0); MEAN CORPUSCULAR HEMOGLOBIN 30.2 pg (29.0-33.0); MEAN CORPUSCULAR HGB CONC 31.6 g/dl (32.0-37.0); MEAN CORPUSCULAR VOLUME 95.5 fl (82.0-101.0); MEAN PLATELET VOLUME 8.6 fl (7.4-10.4); MONOCYTE # 0.7 10^3/ul (0.3-0.9); NEUTROPHIL # 5.4 10^3/ul (1.6-7.5); NEUTROPHILS % 65.6 % (39.0-77.0); PLATELET COUNT 616 10^3/UL (140-415); RED BLOOD COUNT 3.31 10^6/ul (4.70-6.10); RED CELL DISTRIBUTION WIDTH 18.7 % (11.5-14.5); WHITE BLOOD COUNT 8.2 10^3/ul (4.8-10.8)
[2016-05-03 06:56] LABS: CREATININE 0.64 mg/dl (0.61-1.24)
[2016-05-03 06:57] LABS: CALCIUM 8.3 mg/dl (8.4-10.2)
[2016-05-03 07:45] VITALS: BP 137/68; RESP 20
[2016-05-03] MEDS: HYDROCHLOROTHIAZIDE 25 MG TAB PO SCH (09:26)
[2016-05-03] MEDS: DOCUSATE SODIUM 100 MG CAP PO SCH (09:26)
[2016-05-03] MEDS: CYANOCOBALAMIN 1000 MCG INJ IM SCH (09:26)
[2016-05-03] MEDS ORDERED: DOCU-216 PO (14:55)
[2016-05-03] MEDS ORDERED: MULTI PO (14:55)
[2016-05-03] MEDS ORDERED: HYD25 PO (14:55)
[2016-05-03] MEDS ORDERED: HYDR-3671 PO (14:55)
[2016-05-03] MEDS ORDERED: TAMS-14 PO (14:55)
[2016-05-03] MEDS ORDERED: SENN-53 PO (14:55)
--- NOTE | 2016-05-03 14:56 | PDOCDIS ---
Discharge Instructions DIAGNOSIS Discharge Diagnosis: Severe pancytopenia 2/2 severe b12 deficiency CONDITION Patient Condition: Stable HOME CARE INSTRUCTIONS: Special Diet: SOFT DIET WALE LORENZO May 03, 2016 14:56
[2016-05-03] MEDS ORDERED: Cyanocobalamin Inj IM (15:00)
--- NOTE | 2016-05-03 22:33 | CONS ---
Date/Time of Note Date/Time of Note DATE: 05/03/16 TIME: 22:33 Assessment/Plan Assessment/Plan Chief Complaint/Hosp Course SEVERE PANCYTOPENIA WITH NEUTROPENIA 2 TO PROFOUND B12 DEFICIENCY MEGALOBLASTIC MACROCYTIC ANEMIA- REQUIRING PRBC TRANSFUSION- 6U cont vit B12 per protocol no evidence of parvovi infection based on review at [facility] HEP B (+) Suicidal ideation * Mental health evaluation in process SOCIAL PROBLEMS / HOMELESS Problems: Consultation Date/Type/Reason Admit Date/Time Apr 20, 2016 at 12:32 Initial Consult Date 04/21/16 Type of Consultation: HEMEONC Referring Provider: WALE LORENZO 24 HR Interval Summary Free Text/Dictation all noted going to snf today Exam/Review of Systems Vital Signs Vitals Vital Signs Date Time Temp Pulse Resp B/P Pulse Ox O2 Delivery O2 Flow Rate FiO2 05/03/16 07:45 98.6 67 20 137/68 96 05/01/16 20:12 Room Air Intake and Output 05/02/16 05/02/16 05/03/16 15:00 23:00 07:00 Intake Total 1620 ml 660 ml Output Total 1200 ml 400 ml Balance 420 ml 260 ml Exam Constitutional: more alert, oriented (x4), other (elderly male), No distress Psych: nl mood/affect, No anxiety Head: atraumatic, normocephalic Eyes: PERRL, less icteric (+) ENMT: mucosa pink and moist Neck: non-tender Respiratory: clear to auscultation, diminished breath sounds Cardiovascular: regular rate and rhythm, No murmurs/extra sounds Gastrointestinal: bowel sounds, non-tender, soft Musculoskeletal: nl extremities to inspection Extremities: No edema Neurological: nl mental status, nl speech, No focal weakness Skin: other (less jaundice?) Psych: nl mood/affect Results Result Diagram: 05/03/16 0535 05/03/16 0535 Results 24 hrs Laboratory Tests Test 05/03/16 05:35 Anion Gap 15 Basophils # 0.1 Basophils % 1.1 Blood Urea Nitrogen 17 Calcium Level 8.3 L Carbon Dioxide Level 27 Chloride Level 106 Creatinine 0.64 Eosinophils # 0.4 Eosinophils % 5.4 Glucose Level 123 Hematocrit 31.6 L Hemoglobin 10.0 L Lymphocytes # 1.5 Lymphocytes % 18.8 Mean Corpuscular Hemoglobin 30.2 Mean Corpuscular Hemoglobin Concent 31.6 L Mean Corpuscular Volume 95.5 Mean Platelet Volume 8.6 Monocytes # 0.7 Monocytes % 8.0 Neutrophils # 5.4 Neutrophils % 65.6 Nucleated Red Blood Cells # 0.0 Nucleated Red Blood Cells % 0.0 Platelet Count 616 #H Potassium Level 4.0 Red Blood Count 3.31 L Red Cell Distribution Width 18.7 H Sodium Level 144 White Blood Count 8.2 THERESA KEYES MD May 03, 2016 22:33
[2016-05-04] MEDS ORDERED: CYANOCOBALAMIN 1000 MCG INJ IM SCH (09:00)
--- NOTE | 2016-05-04 11:25 | DS ---
DATE OF ADMISSION: 04/20/2016 DATE OF DISCHARGE: 05/03/2016 PRESENTING COMPLAINT: Generalized malaise and weakness. FINAL DIAGNOSES: 1. Severe pancytopenia with lymphocytosis secondary to severe vitamin B12 deficiency, likely from p oor nutrition. Pathology showed no myelodysplastic syndrome. Vitamin B12 deficiency despite being on treatment. 2. Rectal wall thickening, likely inflammatory, now resolved on CT. 3. Situational depression with suicidal ideation. This has completely resolved. The patient had w anted to because of lack of resources and once we had told him we could get him a place to stay so that he would get food, the patient has denied any form of further suicidal ideation or homicida l ideation. Patient declines psychiatry review in house. He was, for a short period, monitored 1 o n 1. However, once we were convinced he was not going to try to harm himself, the sitter was discon tinued. 3. Hypertension, controlled. 4. Low HDL, on fish oil. 5. Asymptomatic bradycardia, stable. We are avoiding atrioventricular ирина blockers. 6. Mild diastolic dysfunction and elevated PA pressure on echo. 7. Previous cerebrovascular accident. 8. The patient also had benign prostatic hypertrophy, that is stable. CONSULTS ON THE CASE: Dr. Joan Contreras for hematology; Dr. Ingrid Mar for GI. INTERVENTIONS: Include: 1. A CT of the abdomen and pelvis that showed focal concentric rectal wall thickening with mild per irectal infiltration, cardiomegaly and atelectasis, as well as nonobstructive nephrolithiasis. But, on CT abdomen with contrast, this thickening was resolved without evidence of neoplasm. 2. He had a CT of the brain that showed old lacunar infarct, chronic microvascular disease, intracr anial arteriosclerosis and left frontal swelling. DISPOSITION: senior living facility. DISCHARGE MEDICATIONS: Include 1. Colace 100 p.o. b.i.d. 2. Hydralazine 25 q.12. 3. Hydrochlorothiazide 25 daily. 4. Multivitamin 1 tablet daily. 5. Senna 1 tab at bedtime. 6. Flomax 0.4 at bedtime. 7. Vitamin B12 injections 1000 mcg IM weekly and then monthly for life. HOSPITALIZATION COURSE: This patient was found in a motel and brought to the emergency room by EMS with complaints of generalized malaise and feeling of wanting to . The patient was found to be s everely anemic and pancytopenic actually, and was admitted for blood transfusion and further workup. Hematology consultation was obtained and extensive lab work was done to include the bone marrow bi opsy. showed vitamin B12 deficiency and there was some concern for probable parvovirus infect ion, but after evaluation of the bone marrow biopsy, it was determined that the patient did not have that, with no myelodysplastic syndrome. It was determined that his pancytopenia was secondary to s evere vitamin B12 deficiency, likely from poor nutrition. Upon further questioning, the patient rep ortedly had no home, he had no food and he had no way to provide for himself and for that reason, he wanted to . We spoke with him with the assistance of an historical interpreter, and explained to him that he could get resources and this improved his disposition significantly. The patient, after hearing this, reported that he did not need to speak with a psychiatrist anymore because he felt much better and much more hopeful. During this hospitalization, we were able to obtain [facility] for him and at this time, he is going to be discharged to a [facility] facility where he will be cared for un til such a period when he is able to care for himself. DISCHARGE CONDITION: Currently stable. With vitamin B12 therapy, his pancytopenia has completely r esolved. The patient is in stable condition for discharge. DIET: Recommended diet is a low cholesterol, low fat. ACTIVITIES: As tolerated. FOLLOWUP: Will be per [facility] doctors at the [facility]. DISCHARGE TIME: Has been about 40 minutes. Dictated By: WALE LORENZO MD BA/NTS Conf#: [id number] DID#: [id number] CC: BESS HU MD;*EndCC*
[2016-06-25] MEDS ORDERED: CYANOCOBALAMIN 1000 MCG INJ IM SCH (09:00)
== END 2016-05-03 18:25 | DRG 809 ==
LOC: E/R 09:50 → MS2 12:32
PROVIDERS: ADMIT Family Medicine; ATTEND Family Medicine
PROC: 30233R1 Transfusion of Nonautologous Platelets into Peripheral Vein, Percutaneous Approach (ICD-10-PCS; 2016-04-20)
PROC: 30233N1 Transfusion of Nonautologous Red Blood Cells into Peripheral Vein, Percutaneous Approach (ICD-10-PCS; 2016-04-20)
PROC: 07DR3ZX Extraction of Iliac Bone Marrow, Percutaneous Approach, Diagnostic (ICD-10-PCS; principal; 2016-04-22)
DX: D61.818 Other pancytopenia (principal); R45.851 Suicidal ideations; I50.32 Chronic diastolic (congestive) heart failure; B19.10 Unspecified viral hepatitis B without hepatic coma; D69.6 Thrombocytopenia, unspecified; I11.0 Hypertensive heart disease with heart failure; B34.3 Parvovirus infection, unspecified; E53.8 Deficiency of other specified B group vitamins; E78.6 Lipoprotein deficiency; K62.89 Other specified diseases of anus and rectum; F43.21 Adjustment disorder with depressed mood; D72.820 Lymphocytosis (symptomatic); D63.8 Anemia in other chronic diseases classified elsewhere; D53.1 Other megaloblastic anemias, not elsewhere classified; D46.9 Myelodysplastic syndrome, unspecified; D53.9 Nutritional anemia, unspecified; R00.1 Bradycardia, unspecified; E80.6 Other disorders of bilirubin metabolism; R33.9 Retention of urine, unspecified; N40.0 Benign prostatic hyperplasia without lower urinary tract symptoms; Z86.73 Personal history of transient ischemic attack (TIA), and cerebral infarction without residual deficits; Z59.0 Homelessness
CPT/HCPCS: 36415; 36430; 70450; 71260; 74176; 74177; 77012; 80048; 80053; 80061; 80306; 80307; 81001; 81003; 82270; 82306; 82378; 82550; 82553; 82595; 82607; 82668; 82728; 82746; 83010; 83036; 83540; 83615; 83690; 83735; 84100; 84153; 84154; 84155; 84165; 84443; 84484; 84560; 85014; 85018; 85025; 85045; 85049; 85362; 85378; 85384; 85610; 85651; 85670; 85730; 86157; 86592; 86644; 86703; 86704; 86709; 86803; 86850; 86880; 86885; 86900; 86901; 86920; 86945; 87086; 87340; 88305; 88313; 88341; 88342; 90686; 93005; 93306; 96374; J1940; A4310; C9113; J0360; J1200; J2250; J3010; J3420; J3480; J7030; J7040; P9011; P9016; P9035; Q9967